=== PATIENT | female | born 1955 | race Caucasian/White ===

== ENCOUNTER 2023-04-26 10:05 | Outpatient (AMB) | payer OTHER, SELFPAY ==
--- NOTE | 2023-04-26 10:10 | MHC.PC.OV ---
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 Patient reports she is grieving the loss of 2 close childhood friends within 3 weeks. Patient has a pimple like spot on the outter left breast. Appellate Court Judge Required: No Accompanied by: Self / Same As Patient Allergies amoxicillin Allergy (Unknown, Verified 04/26/23 10:30) Hives azithromycin [Zithromax] Allergy (Unknown, Verified 04/26/23 10:30) Hives ciprofloxacin [Cipro] Allergy (Unknown, Verified 04/26/23 10:30) Hives codeine Allergy (Unknown, Verified 04/26/23 10:30) Hives Sulfa (Sulfonamide Antibiotics) Allergy (Unknown, Verified 04/26/23 10:30) Hives epinephrine Adverse Reaction (Severe, Verified 04/26/23 10:30) Anaphylaxis Clindamycin HCl Allergy (Unknown, Uncoded 04/26/23 10:30) Hives Erythromycin Allergy (Unknown, Uncoded 04/26/23 10:30) Hives Tobacco use date assessed: 04/26/23 Fall risk assessment: No Falls in past year Last assessed Fall Risk: 04/26/23 Dental Screening Dental Screen Date: 04/26/23 Did you have a dental visit in the last 12 months?: Yes Did you have a dental problem in the last 6 months where you did not have access to dental care?: No Was dental information given to patient?: 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 Kline Last office visit/CPE: . Seen Q6 Acute issue(s): L breast lump - appears as infected cyst - not allergic to cefdinir Acute adjustment disorder superimposed on anxiety/depression with passing of 2 childhood friends in past 2 weeks. On citalopram 40mg PMHx: COPD, LIBERTY, Depression/Anxiety, p-afib ([facility]) rhythm and rate controlled SurgHx: Tonsils, C-sect x2 FHx: Mom: Lupus, Sjogrens. Dad: Diabetes, Bladder tumor. Sister: Lupus SocHx: Nonsmoker, quit 2010. EtOH None. No drugs. [facility]LY [facility] Medical History Paroxysmal atrial flutter LIBERTY on CPAP Obesity Insomnia Hyperglycemia GERD (gastroesophageal reflux disease) Diverticular disease Chronic rhinitis COPD (chronic obstructive pulmonary disease) Depression Atrial fibrillation Anxiety Surgical History History of gynecologic surgery History of hysteroscopy H/O section History of tonsillectomy History of endoscopic gastrointestinal surgery Social History (Updated 04/26/23 @ 10:33 by Sandra Lorenzo CMA) Household Members: Children Housing: House Alcohol intake: never Patient Tobacco Use Status: Former Tobacco user Cigarette Packs Per Day: 1.5 Cigarettes Per Day: 20 Years Smoked: 40 e-Cigarette/Vaping Use: Never Used service: No Current occupational status: retired Current occupational exposures/hazards: No Sexual orientation: Unable to collect Gender identity: Unable to collect Cognitive needs: No Hearing needs: No Vision needs: Yes (wears glasses) Questionnaire PHQ-9 Over the last 2 weeks, how often have you been bothered by any of the following problems? 1. Little interest or pleasure in doing things: not at all 2. Feeling down, depressed, or hopeless: several days 3. Trouble falling or staying asleep, or sleeping too much: nearly every day 4. Feeling tired or having little energy: several days 5. Poor appetite or overeating: several days 6. Feeling bad about yourself - or that you are a failure or have let yourself or your family down: not at all 7. Trouble concentrating on things, such as reading the newspaper or watching television: not at all 8. Moving or speaking so slowly that other people could have noticed. Or the opposite - being so fidgety or restless that you have been moving around a lot more than usual: not at all 9. Thoughts that you would be better off or of hurting yourself in some way: not at all Total score: 6 Depression Screening Interpretation: Positive Depression Screening Follow-up: Other (Acute Adjustment disorder. can follow up.) Depression Screening Done: Yes 70985 - PHQ-9 Billing: Yes Source: Developed by Drs. Mejia Bess, Patrick George and colleagues, with an educational tete from [employer]. Thrive Questionnaire Date Thrive assessed: 04/26/23 I am a: Patient What is your living situation today?: I have a steady place to live Within the past 12 months, did the food you bought not last and you didn't have the money to get more?: Never true Within the past 12 months, did you worry whether your food would run out before you got money to buy more?: Never true Do you have trouble paying for medicines?: No Do you have trouble getting transportation to medical appointments?: No Do you have trouble paying your heating and electricity bill?: No Do you have trouble taking care of your child, family member or friend?: No Do you have trouble with day-to-day activities such as bathing, preparing meals, shopping, managing finances, etc.?: No Are you currently unemployed and looking for a job?: No Are you interested in more education?: No Please select the resources that you would like help with: None Currently or been in a relationship where the following occur: no concerns reported AUDIT C Alcohol Use Questionnaire (AUDIT-C) 1. How often do you have a drink containing alcohol?: Never 3. How often do you have six or more drinks on one occasion?: Never Total Score: 0 RIC-7 AMB Questionnaire RIC-7 Date RIC - 7 assessed: 04/26/23 Feeling nervous, anxious, or on edge: 1 = Several days Not being able to stop or control worryin = Nearly every day Worrying too much about different things: 1 = Several days Trouble relaxin = Not at all Being so restless that it is hard to sit still: 0 = Not at all Becoming easily annoyed or irritable: 2 = More than half the days Feeling afraid as if something awful might happen: 1 = Several days Total RIC-7 score (0-4 normal; 5-9 mild; 10-14 moderate; 15-21 severe): 8 Source: Developed by Drs. Mejia Bess, Patrick George and colleagues, with an educational tete from [employer]. RIC-7 Assessment Billing RIC-7 Assessment Tool: RIC-7 Assessment 88089 (Acute Adjustment disorder. can follow up.) Review of Systems Const Denies chills, Denies fatigue, Denies fever(s), Denies headache(s) and Denies weakness ENT Denies dizziness and Denies headache(s) Card Denies chest pain, Denies lightheadedness, Denies dyspnea and Denies other (Palpitations) Resp Denies cough, Denies dyspnea, Denies wheezing and Denies other ( shortness of breath) Musc Denies numbness and Denies tingling Neuro Denies dizziness, Denies headache(s), Denies numbness, Denies tingling, Denies paresthesias and Denies weakness Psych Reports anxiety and Reports depression Endo Denies fatigue Aller/Immun Denies wheezing Physical exam (Primary Care) Vital Signs: Last Vital Signs Pulse 61 04/26/23 10:14 Resp 13 04/26/23 10:14 BP 128/66 04/26/23 10:14 Pulse Ox 96 04/26/23 10:14 Oxygen Delivery Method Room Air 04/26/23 10:14 BMI result Body Mass Index 42.4 Tobacco/Smoking Status: Tobacco use Status Tobacco use date assessed 04/26/23 04/26/23 10:19 Patient Tobacco Use Status Former Tobacco user 04/26/23 10:33 e-Cigarette/Vaping Use Never Used 04/26/23 10:33 PHQ-9: PHQ-9 Score PHQ-9: Total score 6 04/26/23 10:36 Depression Screening Interpretation: Positive Depression Screening Follow-up: Other (Acute Adjustment disorder. can follow up.) Thrive Assessment: Date of Thrive Assessment Date Thrive assessed 04/26/23 04/26/23 10:36 Currently or been in a relationship where the following occur: no concerns reported Const General: no acute distress and well developed Nutritional Appearance: well nourished and obese morbidly obese Orientation/consciousness: patient oriented x3 HENMT Head: Yes normocephalic and Yes atraumatic Eyes General: appearance normal, both eyes and all related structures Pupils: Equal, round and reactive pupils present EOM: EOMs intact bilaterally Chest Other: 1?cm?superficial?lump?at?left?breast?at?03:00?o'clock?position?approximately?6?cm?from?nipple?areola?complex.??There?is?approximately?a?3?cm?region?of?surrounding?erythema. Resp Effort & Inspection: normal respiratory effort Auscultation: clear to auscultation bilaterally Cardio Rate: regular rate Rhythm: regular rhythm Heart sounds: S1 normal heart sound present, S2 normal heart sound present, no gallops, no murmurs and no rubs Neuro General: patient oriented x3 and gait normal Cranial nerves: Yes Equal, round and reactive pupils present Psych Affect: normal affect Assessment and Plan Assessment & Plan (1) Depression with anxiety: Code(s): F41.8 - Other specified anxiety disorders Plan: Acute?adjustment?disorder?superimposed?over?depression?and?anxiety. Patient?declines?referral?to?therapy?and?declines?medication?adjustments. She?is?fairly?stable I?let?her?know?that?she?can?contact?me?with?any?concerns?regarding?her?medication?or?new?referral?to?a?therapist. (2) Acute adjustment disorder: Code(s): F43.20 - Adjustment disorder, unspecified Plan: As?above (3) Lump of left breast: Code(s): N63.20 - Unspecified lump in the left breast, unspecified quadrant Plan: Recent?mammogram?in?August?was?negative?for?malignancies. This?appears?as?an?infected?superficial?skin?or?subcutaneous?cyst She?has?many?antibiotic?allergies.??Will?use?cefdinir She?will?let?me?know?if?not?improving. We?can?follow-up?to?see?if?this?is?completely?resolved?or?if?there?is?any?residual?cyst?or?lump. (4) COPD (chronic obstructive pulmonary disease): Code(s): J44.9 - Chronic obstructive pulmonary disease, unspecified Plan: Stable?today. Follow-up?with?pulmonology?at?[place]?as?recommended Has?upcoming?low-dose?CT?scan.??Patient?was?a?long-term?smoker?though?she?has?stopped?smoking. (5) LIBERTY on CPAP: Code(s): G47.33 - Obstructive sleep apnea (adult) (pediatric) Plan: Continue?CPAP?and?follow-up?with?pulmonology?as?recommended (6) Paroxysmal atrial fibrillation: Code(s): I48.0 - Paroxysmal atrial fibrillation Plan: Regular?rate?and?rhythm?today. No?recent?episodes?of?AFib?and?patient?is?both?rate?and?rhythm?controlled?though?she?says?her?Cardiology?group?is?planning?to?remove?flecainide?and?move?to?just?rate?control.??She?is?not?anticoagulated. Follow-up?with?Cardiology?as?recommended (7) Laboratory exam ordered as part of routine general medical examination: Code(s): Z00.00 - Encounter for general adult medical examination without abnormal findings Plan: Check?labs Orders: Orders Comprehensive [place]. Panel Fast Today Z00.00 - Encounter for general adult medical examination without abnormal findings Complete Blood Count Auto Diff Today Z00.00 - Encounter for general adult medical examination without abnormal findings Lipid Panel Today Z00.00 - Encounter for general adult medical examination without abnormal findings Microalbumin, Random (w Creat) Today I10 - Essential (primary) hypertension TSH reflex Free T4 Today Z00.00 - Encounter for general adult medical examination without abnormal findings UA and rflx microscopic Today Z00.00 - Encounter for general adult medical examination without abnormal findings Medications: New cefdinir 300 mg PO Q12H 20 caps 0RF 10 days Changed From citalopram 40 mg PO QAM To citalopram 40 mg PO QAM 90 days 90 tabs 3RF From famotidine 20 mg PO DAILY To famotidine 20 mg PO DAILY 90 days 90 tabs 3RF Coding Level of Care Code Est Pt Level 4 (31003) Diagnoses Depression with anxiety F41.8 Acute adjustment disorder F43.20 Lump of left breast N63.20 COPD (chronic obstructive pulmonary disease) J44.9 LIBERTY on CPAP G47.33 Paroxysmal atrial fibrillation I48.0 Laboratory exam ordered as part of routine general medical examination Z00.00 Additional Codes RIC-7 Assessment Billing - RIC-7 Assessment Tool: RIC-7 Assessment 49945 ([id number])
[2023-04-26 10:14] VITALS: BP 128/66; PULSE 61; RESP 13; O2SAT 96; BMI 42.4
== END 2023-04-26 11:19 | disposition home or self-care (01) ==
PROVIDERS: PCP Family Medicine; Visit Provider Family Medicine
DX: J44.9 Chronic obstructive pulmonary disease, unspecified (principal); I48.0 Paroxysmal atrial fibrillation; F41.8 Other specified anxiety disorders; F43.20 Adjustment disorder, unspecified; N63.24 Unspecified lump in the left breast, lower inner quadrant; G47.33 Obstructive sleep apnea (adult) (pediatric)
CPT/HCPCS: 96127; 99214

== ENCOUNTER 2023-06-24 07:07 | Outpatient (REF) | payer OTHER, SELFPAY ==
[2023-06-24 11:04] LABS: MANUAL DIFF FLAG NO
[2023-06-24 11:11] LABS: Appearance Urine Clear; Color Urine Yellow; Glucose Urine UA Negative (Negative); Leukocyte Esterase Urine Moderate (2+) (Negative); Nitrite Urine Negative (Negative); Specific Gravity - Urine 1.015 (1.005-1.025); UMIC TRIGGER UA YES; Urine Blood Negative (Negative); Urine Ketones Negative (Negative); Urine Protein Negative (Neg-Trace)
[2023-06-24 11:13] LABS: Bacteria Urine None Seen (None Seen); Hyaline Casts Urine 0-2 /LPF (0-2); RBC Urine 0-2 /HPF (0-2)
[2023-06-24 11:23] LABS: Basophils Absolute Auto 0.1 X10*3/uL (0.0-0.2); Basophils Percent Auto 0.8 % (0-2); Eosinophils Absolute Auto 0.3 X10*3/uL (0.0-0.4); Eosinophils Percent Auto 4.2 % (0-4); Hematocrit 45.4 % (37.0-47.0); Imm Gran Abs Auto 0.02 X10*3/uL (0.00-0.03); Imm Gran Pct Auto 0.3 % (0.0-0.4); Lymphocytes Absolute Auto 1.2 X10*3/uL (1.2-4.9); Mean Corpuscular Hemoglobin 29.5 pg (27.0-33.0); Mean Corpuscular Volume 89.2 fL (80.0-98.0); Mean Platelet Volume 11.5 fL (9.4-12.3); Monocytes Absolute Auto 0.5 X10*3/uL (0.1-1.2); Neutrophils Absolute Auto 4.4 x10*3/uL (2.0-8.3); Neutrophils Percent Auto 68.7 % (45-73); Platelet Count 251 X10*3/uL (160-400); Red Blood Count 5.09 X10*6/uL (4.20-5.50); White Blood Count 6.4 X10*3/uL (4.8-10.8)
[2023-06-24 12:14] LABS: Alanine Aminotransferase 16 U/L (0-31); Albumin Level 4.2 g/dL (3.5-5.0); Alkaline Phosphatase 63 U/L (39-117); Anion Gap 12 (12-20); Aspartate Amino Transferase 19 U/L (5-31); Bilirubin Total 0.5 mg/dL (0.0-1.0); Blood Urea Nitrogen 14 mg/dL (9-16); Calcium 9.3 mg/dL (8.4-10.2); Carbon Dioxide 25 mmol/L (22-29); Chloride 104 mmol/L (96-108); Cholesterol 178 mg/dL (<200); Estimated Glomerular Filt Rate > 60; Glucose Fasting 108 mg/dL (60-99); HDL Cholesterol 34 mg/dL (>40); LDL Cholesterol Calculated 114 mg/dL (<100); Potassium 4.4 mmol/L (3.3-5.1); Sodium 137 mmol/L (135-145); Total Protein 8.3 g/dL (6.5-8.0); Triglycerides 151 mg/dL (<150)
[2023-06-24 12:20] LABS: Creatinine Urine 105.73 mg/dL; Microalbumin Urine < 5.0 mg/L
== END 2023-06-24 07:08 | disposition home or self-care (01) ==
LOC: HO.WFDLDS 07:07
PROVIDERS: Visit Provider Family Medicine
DX: Z00.00 Encounter for general adult medical examination without abnormal findings (principal); I10 Essential (primary) hypertension
CPT/HCPCS: 36415; 80053; 80061; 81001; 82043; 82570; 84443; 85025

== ENCOUNTER 2023-07-05 10:47 | Outpatient (AMB) | payer OTHER, SELFPAY ==
[2023-07-05 11:25] VITALS: BP 113/65; PULSE 69; O2SAT 97; BMI 28.2
--- NOTE | 2023-07-05 11:25 | A.OFFPC_ITS ---
Vital Signs 07/05/23 11:25 Height 5 ft 6 in Weight 175 lb BMI 28.2 BP 113/65 Blood Pressure Location Lt brachial Pulse 69 Pulse Source Pulse Oximeter Pulse Oximetry (%) 97 Oxygen Delivery Method Room Air Intake Visit Reasons: Extended exam with f/u labs and health maint. Intake Note: Patient is here for extended exam and follow up with follow up on labs today. Allergies amoxicillin Allergy (Unknown, Verified 07/05/23 11:27) Hives azithromycin [Zithromax] Allergy (Unknown, Verified 07/05/23 11:27) Hives ciprofloxacin [Cipro] Allergy (Unknown, Verified 07/05/23 11:27) Hives codeine Allergy (Unknown, Verified 07/05/23 11:27) Hives Sulfa (Sulfonamide Antibiotics) Allergy (Unknown, Verified 07/05/23 11:27) Hives epinephrine Adverse Reaction (Severe, Verified 07/05/23 11:27) Anaphylaxis Clindamycin HCl Allergy (Unknown, Uncoded 07/05/23 11:27) Hives Erythromycin Allergy (Unknown, Uncoded 07/05/23 11:27) Hives Tobacco use date assessed: 04/26/23 HPI Extended exam with f/u labs and health maint. HPI Details 68 y/o female presents for an extended e xam with f/u labs and health maintenance. Labs were drawn 06/24/23. Reviewed labs with pt. Elevated fasting glucose of 108. Triglycerides 151. TC 178. LDL 114. HDL low at 34. A1c today 07/05/23 is 5.7%. Pt reports ongoing knee pain. She notes she is waiting for [facility] to call her back. Pt reports a tooth abscess and questions whether or not she should proceed with a root canal. Pt reports R foot pain. Pt reports last cologuard test was around last summer per pt. Pt reports she has a mammogram coming up. [facility] Medical History (Updated 07/05/23 @ 12:13 by Jim Goel) Paroxysmal atrial flutter LIBERTY on CPAP Obesity Insomnia Hyperglycemia GERD (gastroesophageal reflux disease) Diverticular disease Chronic rhinitis COPD (chronic obstructive pulmonary disease) Depression Anxiety Surgical History (Reviewed 04/26/23 @ 10:19 by Sandra Lorenzo [facility]) History of gynecologic surgery History of hysteroscopy H/O section History of tonsillectomy History of endoscopic gastrointestinal surgery Social History (Updated 04/26/23 @ 10:33 by Sandra Lorenzo 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 1. Little interest or pleasure in doing things: not at all 2. Feeling down, depressed, or hopeless: not at all 3. Trouble falling or staying asleep, or sleeping too much: not at all 4. Feeling tired or having little energy: not at all 5. Poor appetite or overeating: not at all 6. Feeling bad about yourself - or that you are a failure or have let yourself or your family down: not at all 7. Trouble concentrating on things, such as reading the newspaper or watching television: not at all 8. Moving or speaking so slowly that other people could have noticed. Or the opposite - being so fidgety or restless that you have been moving around a lot more than usual: not at all 9. Thoughts that you would be better off or of hurting yourself in some way: not at all Total score: 0 Depression Screening Interpretation: Negative Depression Screening Done: Yes Source: Developed by Drs. Mejia Bess, Jen Erickson, Patrick Morejon and colleagues, with an educational tete from [employer]. Thrive Questionnaire Date Thrive assessed: 07/05/23 I am a: Patient What is your living situation today?: I have a steady place to live Within the past 12 months, did the food you bought not last and you didn't have the money to get more?: Never true Within the past 12 months, did you worry whether your food would run out before you got money to buy more?: Never true Do you have trouble paying for medicines?: No Do you have trouble getting transportation to medical appointments?: No Do you have trouble paying your heating and electricity bill?: No Do you have trouble taking care of your child, family member or friend?: No Do you have trouble with day-to-day activities such as bathing, preparing meals, shopping, managing finances, etc.?: No Are you currently unemployed and looking for a job?: No Are you interested in more education?: No THRIVE Score: 0 AUDIT C Alcohol Use Questionnaire (AUDIT-C) 1. How often do you have a drink containing alcohol?: Never 3. How often do you have six or more drinks on one occasion?: Never Total Score: 0 RIC-7 AMB Questionnaire RIC-7 Date RIC - 7 assessed: 07/05/23 Feeling nervous, anxious, or on edge: 0 = Not at all Not being able to stop or control worryin = Not at all Worrying too much about different things: 0 = Not at all Trouble relaxin = Not at all Being so restless that it is hard to sit still: 0 = Not at all Becoming easily annoyed or irritable: 0 = Not at all Feeling afraid as if something awful might happen: 0 = Not at all Total RIC-7 score (0-4 normal; 5-9 mild; 10-14 moderate; 15-21 severe): 0 Source: Developed by Drs. Mejia Bess, Jen Erickson, Patrick Morejon and colleagues, with an educational tete from [employer]. Review of Systems Const Denies chills, Denies fatigue, Denies fever(s), Denies headache(s) and Denies weakness Eyes Denies change in vision ENT Denies dizziness, Denies headache(s), Denies hearing loss, Denies nasal congestion, Denies sinus pain, Denies sinus pressure and Denies sore throat Card Denies chest pain, Denies lightheadedness, Denies dyspnea and Denies other (palpitations) Resp Denies cough, Denies dyspnea and Denies wheezing GI Denies abdominal pain, Denies melena, Denies hematochezia, Denies change in bowel habits, Denies dyspepsia and Denies nausea Denies hematuria and Denies dysuria Musc Details: R foot pain Denies abnormal gait, Denies myalgias, Denies arthralgias, Denies numbness and Denies tingling Skin/Breast Denies rash, Denies unusual bruising and Denies wounds Neuro Denies abnormal gait, Denies dizziness, Denies headache(s), Denies memory loss, Denies numbness, Denies Sensory deficit (Neuro), Denies tingling and Denies weakness Psych Denies anxiety, Denies depression and Denies memory loss Endo Denies cold intolerance, Denies fatigue, Denies heat intolerance, Denies polydipsia and Denies polyuria Nacho/Lymph Denies easy bleeding and Denies easy bruising Aller/Immun Denies wheezing Physical exam (Primary Care) Vital Signs: Last Vital Signs Pulse 69 07/05/23 11:25 BP 113/65 07/05/23 11:25 Pulse Ox 97 07/05/23 11:25 Oxygen Delivery Method Room Air 07/05/23 11:25 BMI result Body Mass Index 28.2 Tobacco/Smoking Status: Tobacco use Status Tobacco use date assessed 04/26/23 07/05/23 11:27 Patient Tobacco Use Status Former Tobacco user 07/05/23 11:27 e-Cigarette/Vaping Use Never Used 07/05/23 11:27 Depression Screening Interpretation: Negative Thrive Assessment: Date of Thrive Assessment Date Thrive assessed 04/26/23 07/05/23 11:27 Const General: no acute distress, well developed, alert and awake Nutritional Appearance: well nourished Orientation/consciousness: patient oriented x3 HENMT Head: Yes normocephalic and Yes atraumatic Ears: hearing grossly normal bilaterally and TM's normal bilaterally General nose exam: Normal external nose present and Normal nares present Mouth: Normal oral and palatal mucosa present and moist mucous membranes Teeth and gingiva: dentition normal Throat: Yes posterior oropharynx normal Eyes General: appearance normal, both eyes and all related structures Pupils: Equal, round and reactive pupils present and Pupil accommodation reflex normal EOM: EOMs intact bilaterally Neck Neck: Yes normal visual inspection, Yes no lymphadenopathy and Yes trachea mi dline Thyroid: Thyroid normal Carotids: no bruits Lymphatic: no lymphadenopathy noted Chest Chest palpation & inspection: normal inspection of the chest Resp Effort & Inspection: normal respiratory effort Auscultation: clear to auscultation bilaterally Cardio Rate: regular rate Rhythm: regular rhythm Heart sounds: S1 normal heart sound present, S2 normal heart sound present, no gallops, no murmurs and no rubs Bruits: no abdominal aortic bruits and no carotid bruits GI Palpation (GI): No Abdominal aortic bruit present, Soft to palpation, nontender, No hepatosplenomegaly present and No Rebound tenderness present Auscultation: normal bowel sounds General: Yes no CVA tenderness Back/Spine/Pelvis Back: no CVA tenderness Cervical Spine: cervical ROM normal and No Cervical spine tenderness Thoracic/Lumbar Spine: thoraco-lumbar ROM normal, No pain with thoraco-lumbar ROM, No thoracic spinal tenderness and No lumbar spinal tenderness Skin Lesions: no lesions Rashes: no rashes Trauma: no lacerations or abrasions Wounds: no wounds Nails: normal Neuro General: patient oriented x3 Cranial nerves: Yes Equal, round and reactive pupils present Cognition (Neuro): normal cognition Gait exam (Neuro): Normal gait present Motor exam (neuro): 5/5 motor strength present throughout Sensory Exam: No Sensory deficit (Neuro) Deep tendon reflexes (DTR's): Right patellar reflex intensity grade: 2+ and Left patellar reflex intensity grade: 2+ Extrem General: Yes normal to inspection and No edema Psych Appearance: grossly normal Affect: normal affect Attitude: cooperative Thought process: Normal thought process present Results AMB Hemoglobin A1c AMB Hemoglobin A1c 5.7 % Last Edit by Kathy Buchanan CMA on 07/05/23 11:49 Assessment and Plan Assessment & Plan (1) Adult general medical examination: Code(s): Z00.00 - Encounter for general adult medical examination without abnormal findings Plan: 68-year-old?female?presents?for?complete?physical?exam Encouraged?healthy?diet?with?active?lifestyle?and?plenty?of?exercise (2) Screening for colon cancer: Code(s): Z12.11 - Encounter for screening for malignant neoplasm of colon Plan: Patient?notes?she?had?a?Cologuard?test?a?year?ago.??Negative,?per?patient Should?repeat?in?2?year (3) Low HDL (under 40): Code(s): E78.6 - Lipoprotein deficiency Plan: Encouraged?exercise (4) Breast cancer screening by mammogram: Code(s): Z12.31 - Encounter for screening mammogram for malignant neoplasm of breast Plan: Mammograms?managed?by?her?inspector final assembly conveyor line Up-to-date Follow-up?with?inspector final assembly conveyor line?as?recommended (5) Pre-diabetes: Code(s): R73.03 - Prediabetes Plan: A1c?5.7%.??Early?pre?diabetes.??She?has?a?family?history?of?diabetes Encouraged?diet?low?in?sugars?and?starches Encouraged?weight?loss?and?exercise (6) Tooth abscess: Code(s): K04.7 - Periapical abscess without sinus Plan: Left?upper?molar?tooth?abscess She?has?many?allergies?to?antibiotics. Will?give?her?a?script?for?cefdinir. She?will?try?mouth?antiseptics?and?warm?saltwater?gargles?1st. If?not?improving?she?can?take?cefdinir Advised?she?needs?to?follow- up?with?her?dentist?and?she?says?she?has?an?appointment. (7) Right foot pain: Code(s): M79.671 - Pain in right foot Plan: Advised?arch?support?inserts. Referred?to?Podiatry (8) Neoplasm of uncertain behavior of skin: Code(s): D48.5 - Neoplasm of uncertain behavior of skin Plan: Pedunculated?reddish-brown?lesion?at?right?hip/waist. Referred?to?Dermatology?for?assessment?and?evaluation. This?is?getting?caught?on?clothing?and?gets?irritated?as?well.??As?above?referre d?to?Dermatology?and?can?be?removed?due?to?pain?and?irritation. (9) Knee pain: Code(s): M25.569 - Pain in unspecified knee Plan: Bilateral?knee?osteoarthritis Currently?stable?and?she?can?let?me?know?if?this?is?worsening. (10) History of smoking: Code(s): Z87.891 - Personal history of nicotine dependence Plan: Followed?by?pulmonary?medicine?for?COPD?and?had?recent?low-dose?CT?scan?which?sh e?says?was?negative. She?will?get?these?annually (11) Paroxysmal atrial fibrillation: Code(s): I48.0 - Paroxysmal atrial fibrillation Plan: Her?right?fluctuates?with?respiratory?rate?but?otherwise?regular?rhythm?today She?takes?metoprolol?and?is?followed?by?cardiology.??No?recent?AFib Follow-up?with?Cardiology?as?recommended (12) COPD (chronic obstructive pulmonary disease): Code(s): J44.9 - Chronic obstructive pulmonary disease, unspecified Plan: Followed?by?pulmonology. Lungs?are?clear Breathing?well. Inhaled?medications?as?prescribed Continue?to?follow?with?pulmonology?as?recommended Orders: Orders AMB Hemoglobin A1c Today Z13.9 - Encounter for screening, unspecified Referrals Dermatology Referral D48.5 - Neoplasm of uncertain behavior of skin Podiatry Referral M79.671 - Pain in right foot Medications: Refilled cefdinir 300 mg PO Q12H 10 days 20 caps 0RF Coding Level of Care Code Est Pt Level 4 (39405) Diagnoses Adult general medical examination Z00.00 Screening for colon cancer Z12.11 Low HDL (under 40) E78.6 Breast cancer screening by mammogram Z12.31 Pre-diabetes R73.03 Tooth abscess K04.7 Right foot pain M79.671 Neoplasm of uncertain behavior of skin D48.5 Knee pain M25.569 History of smoking Z87.891 Paroxysmal atrial fibrillation I48.0 COPD (chronic obstructive pulmonary disease) J44.9
== END 2023-07-05 12:13 | disposition home or self-care (01) ==
PROVIDERS: PCP Family Medicine; Visit Provider Family Medicine
DX: R73.03 Prediabetes (principal)
CPT/HCPCS: 83036; 99213; 99397

== ENCOUNTER 2023-07-09 10:29 | Outpatient (AMB) | payer OTHER, SELFPAY ==
--- OUTSIDE RECORDS SUMMARY | 2023-07-09 10:30 | XMS_ITS | Continuity of Care Document ---
Author Name Unknown Organization [facility] Pulmonary M edicine Address [address] [place] [id number]- Care Team Providers Care Senior Pl Sql Developer Name Role Phone Kindra TAI, Brian Jacome Primary Care Physician [phone] Encounter [facility] Date(s): 04/27/23 - 05/27/23 [facility] Medicine [address] [place] [id number] Allergies, Adverse Reactions, Alerts Substance Reaction Severity Status Sulfur Active codeine Active clindamycin Active doxycycline Dizziness Active erythromycin Active amoxicillin Active azithromycin Active epinephrine-pilocarpine ophthalmic Active Cipro Active Immunizations Given and Recorded Vaccine Date Status Refusal Reason RSV vaccine, preF A-preF B, recombinant 02/02/23 R ecorded influenza virus vaccine, inactivated 02/02/23 Marlon rded influenza virus vaccine, inactivated 02/04/22 Marlon rded influenza virus vaccine, inactivated 02/07/21 Marlon rded influenza virus vaccine, inactivated 01/16/20 Marlon rded influenza virus vaccine, inactivated 02/04/19 Marlon rded influenza virus vaccine, inactivated 01/27/18 Marlon rded influenza virus vaccine, inactivated 01/22/17 Marlon rded influenza virus vaccine, inactivated 02/27/15 Marlon rded pneumococcal 20-valent conjugate vaccine 09/23/22 Recorded SARS-CoV-2 mRNA-1273 (6m-5y) vaccine 02/11/22 Marlon rded SARS-CoV-2 (COVID-19) mRNA-1273 vaccine 09/10/21 R ecorded SARS-CoV-2 (COVID-19) mRNA-1273 vaccine 03/25/21 R ecorded SARS-CoV-2 (COVID-19) mRNA-1273 vaccine 08/13/20 G iven SARS-CoV-2 (COVID-19) mRNA-1273 vaccine 07/16/20 G iven tetanus/diphtheria/pertussis, acel(Tdap) 01/22/17 Recorded Influenza Virus Vaccine (oldterm) 02/07/16 Recorde d pneumococcal 13-valent vaccine 08/17/14 Recorded zoster vaccine, inactivated 02/26/14 Recorded pneumococcal 23-valent vaccine 06/30/11 Recorded Measles/Mumps/Rubella Virus Vaccine 02/10/10 Recor ded influ virus vac, H1N1, inactive(oldterm) 05/28/09 Recorded diphtheria/tetanus/pertussis, acel(DTaP) 07/10/08 Recorded Medications citalopram 40 mg oral tablet 1 tablet, By Mouth, Daily in AM, # 30 tablet, 2 Refills, Maintenance, 03/25/23 9:19:00 EDT, [facility] #[id number], 167, cm, 03/18/23 9:01:00 EDT, Height Start Date: 03/25/23 Status: Ordered flecainide 100 mg oral tablet 1 tablet = 100 mg, By Mouth, Every 12 hours, # 60 tablet, 0 Refills, Maintenance, 12/27/14 12:48:23, Tablet Start Date: 12/27/14 Status: Ordered Incruse Ellipta 62.5 mcg/inh inhalation powder 1 each, Inhalation, Every 24 hours, doses should be taken at least 24 hours apart, # 30 each, 11 Refills, Maintenance, 05/13/22 17:51:00 EST, Powder, [facility] #[id number], Partial fill upon patient request if the prescription is for a schedule I... Start Date: 05/13/22 Stop Date: 05/08/23 Status: Ordered levalbuterol 45 mcg/inh inhalation aerosol 2 puffs, Inhalation, Every 4 hours, PRN for wheezing, # 15 Gm, 11 Refills, Maintenance, 04/21/23 11:27:00 EST, Aerosol, [facility] #[id number], Partial fill upon patient request if the prescription is for a schedule II opioid drug., 167, cm, 04/21... Start Date: 04/21/23 Status: Ordered meloxicam 15 mg oral tablet TAKE 1 TABLET BY MOUTH DAILY NEEDED FOR PAIN Start Date: 11/09/22 Status: Ordered metoprolol 25 mg oral tablet, extended release ORAL, TABLET, EXTENDED RELEASE, 0 Refill(s),, Refills 0, 08/28/18 12:08:00 EDT Start Date: 08/28/18 Status: Ordered Stiolto Respimat 60 ACT 2.5 mcg-2.5 mcg/inh inhalation aerosol 2 puffs, Inhalation, Every 24 hours, # 4 Gm, 11 Refills, Maintenance, 05/10/23 12:29:00 EST, Aerosol, [facility] #[id number], Partial fill upon patient request if the prescription is for a schedule II opioid drug., 167, cm, 04/21/23 10:22:00 EST,... Start Date: 05/10/23 Stop Date: 05/04/24 Status: Ordered Zyrtec 10 mg oral tablet 1 tablet = 10 mg, By Mouth, Daily, # 30 tablet, 0 Refills, Maintenance, 12/27/14 12:50:02, Tablet Start Date: 12/27/14 Status: Ordered Problem List Condition Confirmation Course Effective Dates Status H ealth Status Informant Ankle pain Confirmed Active Anxiety Confirmed Active Atrial fibrillation Confirmed Active COPD (chronic obstructive pulmonary disease) Confirmed Active Chronic rhinitis Confirmed Active Depressive disorder Confirmed Active Diverticular disease of colon Confirmed Active Enthesopathy of elbow region Confirmed Active GERD (gastroesophageal reflux disease) Confirmed Active Hyperglycemia Confirmed Active Insomnia Confirmed Active Knee pain Confirmed Active Low back pain Confirmed Active Anxiety and depression Confirmed Active Obesity Confirmed Active LIBERTY on CPAP Confirmed Active Paroxysmal atrial fibrillation Confirmed Active Encounter for screening colonoscopy Confirmed Active Severe obesity Confirmed Active Social History Social History Type Response Smoking Status Former smoker, quit more than 30 days ago; Other: quit 2010. smoked about 40 years. 1 1/2 ppd.; entered on: 03/10/23 Sex Patient Care team information Care Team Personnel Name: Brian Arguelles MD Position: [facility] Outreach Member Role: PCP Address: Address: [address] [place] [id number]- Care Team Related Persons Name: LENARD LITTLEJOHN Address: [address] [place] [address] Name: BHARGAVI DAVIS Address: home [address] [place] [address]
--- OUTSIDE RECORDS SUMMARY | 2023-07-09 10:30 | XMS_ITS | Continuity of Care Document ---
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 Operator Name Role Phone Kindra TAI, Brian Jacome Primary Care Physician [phone] Encounter [facility] Date(s): 06/02/23 - 07/02/23 [facility] [address] [place] [id number] Allergies, Adverse Reactions, Alerts Substance Reaction Severity Status codeine Active doxycycline Dizziness Active clindamycin Active erythromycin Active amoxicillin Active azithromycin Active epinephrine-pilocarpine ophthalmic Active Cipro Active Sulfur Active Immunizations Given and Recorded Vaccine Date [...] tablet, 2 Refills, Maintenance, 03/25/23 9:19:00 EDT, [facility] #[id number], 167, cm, 03/18/23 9:01:00 EDT, Height Start [...] 11 Refills, Maintenance, 05/13/22 17:51:00 EST, Powder, [facility] #[id number], Partial fill upon patient request if the prescription is for a schedule I... Start Date: 05/13/22 Stop Date: 05/08/23 Status: Ordered levalbuterol 45 mcg/inh inhalation aerosol 2 puffs, Inhalation, Every 4 hours, PRN for wheezing, # 15 Gm, 11 Refills, Maintenance, 04/21/23 11:27:00 EST, Aerosol, [facility] #[id number], Partial fill upon patient request if the [...] Inhalation, Every 24 hours, # 4 Gm, 5 Refills, Maintenance, 06/14/23 9:29:00 EST, [facility] #[id number], 167, cm, 04/21/23 10:22:00 EST, Height Start Date: 06/14/23 Status: Ordered Zyrtec 10 mg oral tablet [...] Team Personnel Name: Brian Arguelles MD Position: S Outreach Member Role: PCP Address: Address: [address] [place] [address]- Care Team Related Persons Name: LENARD LITTLEJOHN Address: [address] [place] [address] Name: BHARGAVI DAVIS Address: home [address] [place] [address]
--- OUTSIDE RECORDS SUMMARY | 2023-07-09 10:30 | XMS_ITS | Continuity of Care Document ---
Author Name Unknown Organization [facility] Address [address] [address]- Care Team Providers Care Vending Machine Collector Name Role Phone Eliud TAI, Kaley Corrales Primary Care Physician [facility] Date(s): 11/19/22 - 12/19/22 [facility] [address] [address] Allergies, Adverse Reactions, Alerts Substance Reaction Severity Status amoxicillin Active Sulfur Active codeine Active clindamycin Active erythromycin Active azithromycin Active epinephrine-pilocarpine ophthalmic Active Cipro Active Immunizations Given and Recorded Vaccine Date Status Refusal Reason pneumococcal 20-valent conjugate vaccine 09/23/22 Recorded SARS-CoV-2 mRNA-1273 (6m-5y) vaccine 02/11/22 Marlon rded influenza virus vaccine, inactivated 02/04/22 Marlon rded influenza virus vaccine, inactivated 02/07/21 Marlon rded influenza virus vaccine, inactivated 01/16/20 Marlon rded influenza virus vaccine, inactivated 02/04/19 Marlon rded influenza virus vaccine, inactivated 01/27/18 Marlon rded influenza virus vaccine, inactivated 01/22/17 Marlon rded influenza virus vaccine, inactivated 02/27/15 Marlon rded SARS-CoV-2 (COVID-19) mRNA-1273 vaccine 09/10/21 [...] Mouth, Daily in AM, # 30 tablet, 5 Refills, Maintenance, 09/26/22 7:11:00 EDT, [facility] #[id number], 167, cm, 09/08/22 10:38:00 EDT, Height Start Date: 09/26/22 Status: Ordered famotidine 20 mg oral tablet 1, tablet, By Mouth, Daily at bedtime, # 90 tablet, Refills 0, Maintenance, 11/03/22 19:17:00 EDT, Route to Pharmacy Electronically, [facility] #[id number], 167, cm, 09/08/22 10:38:00 EDT, Height Start Date: 11/03/22 Status: Ordered Flax Seed Oil oral capsule 0 Refills, Maintenance, 01/03/19 10:12:18 EDT Start Date: 01/03/19 Status: Ordered flecainide 100 mg oral tablet 1 tablet = 100 mg, By Mouth, Every 12 hours, # 60 tablet, 0 Refills, Maintenance, 12/27/14 12:48:23, Tablet Start Date: 12/27/14 Status: Ordered fluconazole 150 mg oral tablet 1 tablet = 150 mg, By Mouth, Once, epeat dose if still having symptoms in 72 hours, # 2 tablet, 0 Refills, Soft Stop, 11/19/22 15:04:00 EDT, Tablet, [facility] #[id number], Partial fill upon patient request if the prescription is for a schedule II... Start Date: 11/19/22 Status: Ordered Incruse Ellipta 62.5 mcg/inh inhalation powder 1 each, Inhalation, Every 24 hours, doses should be taken at least 24 hours apart, # 30 each, 11 Refills, Maintenance, 05/13/22 17:51:00 EST, Powder, [facility] #[id number], Partial fill upon patient request if the prescription is for a schedule I... Start Date: 05/13/22 Stop Date: 05/08/23 Status: Ordered levalbuterol 45 mcg/inh inhalation aerosol 2 puffs, Inhalation, Every 4 hours, PRN for wheezing, # 15 Gm, 11 Refills, Maintenance, 10/22/21 10:28:00 EDT, Aerosol, [facility] #[id number], Partial fill upon patient request if the prescription is for a schedule II opioid drug., 167, cm, 10/22... Start Date: 10/22/21 Status: Ordered meloxicam 15 mg oral tablet TAKE 1 TABLET BY MOUTH DAILY NEEDED FOR PAIN Start Date: 11/09/22 Status: Ordered metoprolol 25 mg oral tablet, extended release ORAL, TABLET, EXTENDED RELEASE, 0 Refill(s),, Refills 0, 08/28/18 12:08:00 EDT Start Date: 08/28/18 Status: Ordered PEG-3350 with Electrolytes (Eqv-NuLYTELY) oral powder for reconstitution See Instructions, Mix powder with water according to the product label On the evening befoer colonoscopy drink 8 oz of prep fluid every 15-20 minutes until it is finished, # 1 each, 0 Refills, Maintenance, 09/15/22 9:01:00 EDT, [facility] Start Date: 09/15/22 Status: Ordered Stiolto Respimat 60 ACT 2.5 mcg-2.5 mcg/inh inhalation aerosol 2 puffs, Inhalation, Every 24 hours, # 4 Gm, 11 Refills, Maintenance, 05/15/22 12:29:00 EST, Aerosol, [facility] #[id number], Partial fill upon patient request if the prescription is for a schedule II opioid drug., 167, cm, 04/01/22 9:52:00 EST, H... Start Date: 05/15/22 Stop Date: 05/10/23 Status: Ordered Zyrtec 10 mg oral tablet [...] Social History Type Response Smoking Status Former smoker entered on: 12/27/14 Sex Patient Care team information Care Team Personnel Name: Eliud TAI, Kaley Corrales Position: [facility] Physician - Primary Care Member Role: PCP Address: Address: [address] [place] [address] [place] [address]- Care Team Related Persons Name: LENARD LITTLEJOHN Address: home [address] [place] [address] Name: ELDA DAVIS Address: home [address] [place] [address]
--- OUTSIDE RECORDS SUMMARY | 2023-07-09 10:30 | XMS_ITS | Continuity of Care Document ---
Author Name Unknown Organization [facility] [place] Address [address] [place] [address]- Care Team Providers Care Proposal Engineer Name Role Phone Eliud TAI, Kaley Corrales Primary Care Physician Encounter [facility] Date(s): 09/15/22 - 10/15/22 [facility] [place] [address] [place], [place] [address] Attending Physician: Admtr, [place] Admitting Physician: Admtr, [place] Referring Physician: Admtr, Ar8 Allergies, Adverse Reactions, Alerts Substance Reaction Severity Status codeine Active clindamycin Active erythromycin Active amoxicillin Active [...] tablet, 5 Refills, Maintenance, 09/26/22 7:11:00 EDT, [facility] #[id number], 167, cm, 09/08/22 10:38:00 EDT, Height Start Date: 09/26/22 Status: Ordered famotidine 20 mg oral tablet 1, tablet, By Mouth, Daily at bedtime, # 90 tablet, Refills 0, Maintenance, 08/05/22 9:10:00 EDT, Route to Pharmacy Electronically, [facility] #[id number], 167, cm, 05/28/22 16:04:00 EST, Height Start Date: 08/05/22 Status: Ordered Flax Seed Oil oral capsule [...] 11 Refills, Maintenance, 05/13/22 17:51:00 EST, Powder, [facility] #[id number], Partial fill upon patient request if the prescription is for a schedule I... Start Date: 05/13/22 Stop Date: 05/08/23 Status: Ordered levalbuterol 45 mcg/inh inhalation aerosol 2 puffs, Inhalation, Every 4 hours, PRN for wheezing, # 15 Gm, 11 Refills, Maintenance, 10/22/21 10:28:00 EDT, [facility]erosol, [id number], Partial fill upon patient request if the prescription is for a schedule II opioid drug., 167, cm, 10/22... Start Date: 10/22/21 Status: Ordered metoprolol 25 mg oral tablet, [...] each, 0 Refills, Maintenance, 09/15/22 9:01:00 EDT, [facility]... Start Date: 09/15/22 Status: Ordered Stiolto Respimat 60 ACT 2.5 mcg-2.5 mcg/inh inhalation aerosol 2 puffs, Inhalation, Every 24 hours, # 4 Gm, 11 Refills, Maintenance, 05/15/22 12:29:00 EST, Aerosol, [facility] #[id number], Partial fill upon patient request if the [...] Care team information Care Team Personnel Name: Kaley Kline MD Position: S Physician - Primary Care Member Role: PCP Address: Address: [address] [place] [address] [place] [address]- Care Team Related Persons Name: LENARD LITTLEJOHN Address: home [address] [place] [address] Name: ELDA DAVIS Address: home [address] [place] [address]
--- OUTSIDE RECORDS SUMMARY | 2023-07-09 10:30 | XMS_ITS | Continuity of Care Document ---
Author Name Unknown Organization [facility] Address [address] [place] [address]- Care Team Providers Care Hand Stemmer Name Role Phone Eliud TAI, Kaley Corrales Primary Care Physician [facility]counter [facility] Date(s): 06/21/20 - 07/21/20 [facility] [address] [place] [address]- Allergies, Adverse Reactions, Alerts Substance Reaction Severity Status codeine Active clindamycin Active erythromycin Active amoxicillin Active azithromycin Active epinephrine-pilocarpine ophthalmic Active Cipro Active Sulfur Active Immunizations Given and Recorded Vaccine Date Status Refusal Reason SARS-CoV-2 (COVID-19) mRNA-1273 vaccine 07/16/20 G iven influenza virus vaccine, inactivated 01/16/20 Marlon rded influenza virus vaccine, inactivated 02/04/19 Marlon rded Influenza Virus Vaccine (oldterm) 02/07/16 Recorde d pneumococcal 13-valent vaccine 08/17/14 Recorded zoster vaccine, inactivated 02/26/14 Recorded pneumococcal 23-valent vaccine 06/30/11 Recorded Measles/Mumps/Rubella Virus Vaccine 02/10/10 Recor ded influ virus vac, H1N1, inactive(oldterm) 05/28/09 Recorded diphtheria/tetanus/pertussis, acel(DTaP) 07/10/08 Recorded Medications citalopram 40 mg oral tablet 1 tablet, By Mouth, Daily in AM, # 30 tablet, 5 Refills, Maintenance, 05/11/20 15:34:00 EST, [facility] #[id number], 167, cm, 05/30/19 9:46:00 EST, Height Start Date: 05/11/20 Status: Ordered famotidine 20 mg oral tablet 1, tablet, By Mouth, Daily at bedtime, # 30 tablet, Refills 5, Tot. Refills 0, Maintenance, 06/12/20 9:54:00 EST, Route to Pharmacy Electronically, [facility] #[id number], 167, cm, 05/30/19 9:46:00 EST, Height Start Date: 06/12/20 Status: Ordered Flax Seed Oil oral capsule 0 Refills, Maintenance, 01/03/19 10:12:18 EDT Start Date: 01/03/19 Status: Ordered flecainide 100 mg oral tablet 1 tablet = 100 mg, By Mouth, Every 12 hours, # 60 tablet, 0 Refills, Maintenance, 12/27/14 12:48:23, Tablet Start Date: 12/27/14 Status: Ordered levalbuterol 45 mcg/inh inhalation aerosol 2 puffs, Inhalation, Every 4 hours, PRN for wheezing, # 1 each, 11 Refills, Maintenance, 05/09/20 13:20:00 EST, Aerosol, [facility] #[id number], Partial fill upon patient request if the prescription is for a schedule II opioid drug., 167, cm, ... Start Date: 05/09/20 Stop Date: 05/04/21 Status: Ordered metoprolol 25 mg oral tablet, extended release ORAL, TABLET, EXTENDED RELEASE, 0 Refill(s),, Refills 0, 08/28/18 12:08:00 EDT Start Date: 08/28/18 Status: Ordered tiotropium 2.5 mcg/inh inhalation aerosol 2 puffs, Inhalation, Daily, # 4 Gm, 11 Refills, Maintenance, 05/09/20 13:19:00 EST, Aerosol, [facility] #[id number], Partial fill upon patient request if the prescription is for a schedule II opioid drug., 167, cm, 05/30/19 9:46:00 EST, Height Start Date: 05/09/20 Stop Date: 05/04/21 Status: Ordered Zyrtec 10 mg oral tablet 1 tablet = 10 mg, By Mouth, Daily, # 30 tablet, 0 Refills, Maintenance, 12/27/14 12:50:02, Tablet Start Date: 12/27/14 Status: Ordered Problem List Condition Effective Dates Status Health Status Inform ant Ankle pain(Confirmed) Active Anxiety(Confirmed) Active Atrial fibrillation(Confirmed) Active COPD (chronic obstructive pu lmonary disease)(Confirmed) Active Chronic rhinitis(Confirmed) Active Depressive disorder(Confirmed) Active Diverticular disease of colon(Confirmed) Active Enthesopathy of elbow region(Confirmed) Active GERD (gastroesophageal reflu x disease)(Confirmed) Active Hyperglycemia(Confirmed) Active Insomnia(Confirmed) Active Knee pain(Confirmed) Active Low back pain(Confirmed) Active Anxiety and depression(Confirmed) Active Obesity(Confirmed) Active LIBERTY on CPAP(Confirmed) Active Paroxysmal atrial fibrillation(Confirmed) Active Social History Social History Type Response Smoking Status Former smoker entered on: 12/27/14 Sex
--- OUTSIDE RECORDS SUMMARY | 2023-07-09 10:31 | XMS_ITS | Continuity of Care Document ---
Author Name Unknown Organization [facility] Address [address] [place] [address]- Care Team Providers Care Roll Weigher Name Role Phone Eliud TAI, Kaley M Primary Care Physician Encounter [facility] Date(s): 07/21/22 - 08/20/22 [facility] [address] [place] [address]- Attending Physician: [place] Carranza Admitting Physician: Admtr[place] Referring Physician: Admtr, Ar8 Allergies, Adverse Reactions, Alerts Substance Reaction Severity Status codeine Active clindamycin Active erythromycin Active amoxicillin Active azithromycin Active epinephrine-pilocarpine ophthalmic Active Cipro Active Sulfur Active Immunizations Given and Recorded Vaccine Date Status Refusal Reason SARS-CoV-2 mRNA-1273 (6m-5y) vaccine 02/11/22 Marlon rded [...] AM, # 30 tablet, 2 Refills, Maintenance, 06/29/22 15:41:00 EST, [facility] #[id number], Office visit needed for further refills., 167, cm, 05/28/22 16:04:00 EST, Height Start Date: 06/29/22 Status: Ordered famotidine 20 mg oral tablet 1, tablet, By Mouth, Daily at bedtime, # 90 tablet, Refills 0, Maintenance, 08/05/22 9:10:00 EDT, Route to Pharmacy Electronically, [facility] #[id number], 167, cm, 05/28/22 16:04:00 EST, Height Start [...] 11 Refills, Maintenance, 05/13/22 17:51:00 EST, Powder, [facility] #[id number], Partial fill upon patient request if the prescription is for a schedule I... Start Date: 05/13/22 Stop Date: 05/08/23 Status: Ordered levalbuterol 45 mcg/inh inhalation aerosol 2 puffs, Inhalation, Every 4 hours, PRN for wheezing, # 15 Gm, 11 Refills, Maintenance, 10/22/21 10:28:00 EDT, Aerosol, [facility][id number], Partial fill upon patient request if the [...] Maintenance, 05/15/22 12:29:00 EST, Aerosol, [facility] #[id number], Partial fill upon patient request if the [...] Confirmed Active Paroxysmal atrial fibrillation Confirmed Active Severe obesity Confirmed Active Social History Social History Type Response Smoking Status Former smoker entered on: 12/27/14 Sex Patient Care team information Care Team Personnel Name: Eliud TAI, Kaley Corrales Position: S Primary Care Physician Member Role: PCP Address: Address: [address] [place] [address]- Care Team Related Persons Name: LENARD LITTLEJOHN Address: home [address] [place] [address] Name: ELDA DAVIS Address: home [address] [place] [address]
[2023-07-09 10:47] VITALS: BP 132/78; PULSE 62; TEMP 37.1; O2SAT 92; BMI 42.3
--- NOTE | 2023-07-09 10:47 | AM.OFFWIN_ITS ---
Intake Vital Signs 07/09/23 10:47 Height 5 ft 6 in Weight 262 lb BMI 42.3 BP 132/78 Blood Pressure Location Lt brachial Pulse 62 Pulse Source Pulse Oximeter Temp 98.8 F Temp Source Oral Pulse Oximetry (%) 92 Oxygen Delivery Method Room Air Intake Visit Reasons: Fever/chills,weakness,cough Patient Tobacco Use Status: Former Tobacco user Allergies amoxicillin Allergy (Unknown, Verified 07/09/23 10:49) Hives azithromycin [Zithromax] Allergy (Unknown, Verified 07/09/23 10:49) Hives ciprofloxacin [Cipro] Allergy (Unknown, Verified 07/09/23 10:49) Hives codeine Allergy (Unknown, Verified 07/09/23 10:49) Hives Sulfa (Sulfonamide Antibiotics) Allergy (Unknown, Verified 07/09/23 10:49) Hives epinephrine Adverse Reaction (Severe, Verified 07/09/23 10:49) Anaphylaxis Clindamycin HCl Allergy (Unknown, Uncoded 07/09/23 10:49) Hives Erythromycin Allergy (Unknown, Uncoded 07/09/23 10:49) Hives HPI Fever/chills,weakness,cough HPI Details 68 y/o female presents with complaints o f fevers/chills, weakness and cough. She reports she woke up with symptoms Wednesday. Pt hx of COPD. She is already of cefdinir 300mg. [facility] Medical History (Updated 07/09/23 @ 11:02 by Jim Goel) Paroxysmal atrial flutter LIBERTY on CPAP Obesity Insomnia Hyperglycemia GERD (gastroesophageal reflux disease) Diverticular disease Chronic rhinitis COPD (chronic obstructive pulmonary disease) Depression Anxiety Surgical History History of gynecologic surgery History of hysteroscopy H/O section History of tonsillectomy History of endoscopic gastrointestinal surgery Social History (Updated 04/26/23 @ 10:33 by Sandra Lorenzo CMA) Household Members: Children Housing: House Alcohol intake: never Patient Tobacco Use Status: Former Tobacco user Cigarette Packs Per Day: 1.5 Cigarettes Per Day: 20 Years Smoked: 40 e-Cigarette/Vaping Use: Never Used service: No Current occupational status: retired Current occupational exposures/hazards: No Sexual orientation: Unable to collect Gender identity: Unable to collect Cognitive needs: No Hearing needs: No Vision needs: Yes (wears glasses) Review of Systems Const Reports chills, Denies fatigue, Reports fever(s), Denies headache(s) and Denies weakness ENT Denies dizziness and Denies headache(s) Card Denies dyspnea Resp Denies cough, Denies dyspnea, Denies wheezing and Denies other (shortness of breath) Musc Denies numbness and Denies tingling Neuro Denies dizziness, Denies headache(s), Denies numbness, Denies tingling and Denies weakness Psych Denies anxiety and Denies depression Endo Denies fatigue Aller/Immun Denies wheezing Physical Exam Vital Signs: Last Vital Signs Temp 98.8 F 07/09/23 10:47 Pulse 62 07/09/23 10:47 BP 132/78 07/09/23 10:47 Pulse Ox 92 07/09/23 10:47 Oxygen Delivery Method Room Air 07/09/23 10:47 BMI result Body Mass Index 42.3 Const General: well developed; No acute distress Nutritional Appearance: well nourished Orientation/consciousness: patient oriented x3 HEENT Head: Yes normocephalic and Yes atraumatic Eyes General: appearance normal, both eyes and all related structures Pupils: Equal, round and reactive pupils present EOM: EOMs intact bilaterally Resp Other: Left lower lung secretion sounds Effort & Inspection: normal respiratory effort Auscultation: not clear to auscultation bilaterally Neuro General: patient oriented x3 and gait normal Cranial nerves: Yes Equal, round and reactive pupils present Psych Affect: normal affect Assessment & Plan Assessment & Plan (1) Viral illness: Code(s): B34.9 - Viral infection, unspecified Plan: Likely?underlying?Viral?illness There?is?no?antibiotic?medication?for?viruses.??They?must?run?their?co urse.??Most?average?5-7?days?but?7-10?days?is?not?uncommon?and?up?to?14?days?is? still?possible.??A?cough?is?often?the?last?symptom?to?resolve?and?this?can?last? for?weeks?in?some?cases. Rest Hydrate?well?-??Drink?plenty?of?fluids.??Especially?water. Tylenol?or?ibuprofen?for?muscle?aches,?headache,?fever/discomfort Can?use?qqlm-mmw-zbpocpi?medications?for?cough?such?as?Delsym?or?DayQuil.??Presc ription?cough?medicines?have?been?shown?to?be?no?better. Swab?for?COVID/flu/RSV?sent?to?lab Long?holiday?weekend?for?some?staff.??Sent?script?for?Paxlovid?and?let?patient?k now?she?should?not?pick?it?up?unless?her?test?is?positive (2) Cough: Code(s): R05.9 - Cough, unspecified Plan: Significant?cough?and?history?of?COPD. Appears?to?be?COPD?exacerbation?secondary?to?her?viral?illness Will?give?her?short?course?of?prednisone. Use?leave?albuterol?for?symptoms Continue?tiotropium She?is?already?on?cefdinir?for?a?tooth?abscess - does?not?tolerate?most?other?antibiotics. Will?extend?this?an?additional?5?days?due?to?likely?COPD?exacerbation?and?concer ns?for?potential?pneumonia. (3) COPD exacerbation: Code(s): J44.1 - Chronic obstructive pulmonary disease with (acute) exacerbation Plan: As?above Orders: Orders SARS-CoV2/FLU/RSV Today B34.9 - Viral infection, unspecified, Z20.822 - Contact with and (suspected) exposure to COVID-19 Medications: New nirmatrelvir-ritonavir 300 mg (150 mg x 2)-100 mg (Paxlovid) take TWO 150 mg tablets of nirmatrelvir with ONE 100 mg tablet of ritonavir twice daily for 5 days PO 30 ea 0RF prednisone 40 mg (2 x 20 mg) PO DAILY 4 days 8 tabs 0RF Changed From cefdinir 300 mg PO Q12H 10 days 20 caps 0RF To cefdinir 300 mg PO Q12H 5 days 10 caps 0RF Coding Level of Care Code Est Pt Level 3 (35774) Diagnoses Viral illness B34.9 Cough R05.9 COPD exacerbation J44.1
== END 2023-07-09 11:08 | disposition home or self-care (01) ==
PROVIDERS: PCP Family Medicine; Visit Provider Family Medicine
DX: B34.9 Viral infection, unspecified (principal); R05.9 Cough, unspecified; J44.1 Chronic obstructive pulmonary disease with (acute) exacerbation
CPT/HCPCS: 99213

== ENCOUNTER 2023-07-09 14:46 | Outpatient (REF) | payer OTHER, SELFPAY ==
[2023-07-09 15:35] LABS: Influenza A PCR POSITIVE (Negative); Influenza B PCR NEGATIVE (Negative); Resp Syncy Virus RNA Qual PCR NEGATIVE (Negative); SARS COV2 PCR INHOUSE POSITIVE (Negative)
== END 2023-07-09 14:47 | disposition home or self-care (01) ==
LOC: HO.LNP 14:46
PROVIDERS: Visit Provider Family Medicine
DX: Z20.822 Contact with and (suspected) exposure to COVID-19 (principal); B34.9 Viral infection, unspecified
CPT/HCPCS: 0241U

== ENCOUNTER 2023-07-16 09:30 | Outpatient (AMB) | payer OTHER, SELFPAY ==
--- NOTE | 2023-07-16 09:35 | AM.OFFWIN_ITS ---
Intake Vital Signs 07/16/23 09:42 Height 5 ft 6 in BP 144/66 H Blood Pressure Location Lt brachial Position Sitting Respiration 15 Pulse 50 Pulse Source Pulse Oximeter Temp 97.2 F Temp Source Temporal Artery Scan Pulse Oximetry (%) 99 Intake Visit Reasons: ongoing covid symtpoms + test this am Intake Note: Patient reports she tested positive this morning for covid and she feels exhausted, coughing, and hard to breathe. Patient Tobacco Use Status: Former Tobacco user Utilization Manager Required: No Accompanied by: Self / Same As Patient Allergies amoxicillin Allergy (Unknown, Verified 07/16/23 09:56) Hives azithromycin [Zithromax] Allergy (Unknown, Verified 07/16/23 09:56) Hives ciprofloxacin [Cipro] Allergy (Unknown, Verified 07/16/23 09:56) Hives codeine Allergy (Unknown, Verified 07/16/23 09:56) Hives Sulfa (Sulfonamide Antibiotics) Allergy (Unknown, Verified 07/16/23 09:56) Hives epinephrine Adverse Reaction (Severe, Verified 07/16/23 09:56) Anaphylaxis Clindamycin HCl Allergy (Unknown, Uncoded 07/16/23 09:48) Hives Erythromycin Allergy (Unknown, Uncoded 07/16/23 09:48) Hives Medication List - Last Reconciled 07/16/23 by Erika Borden, CONSTRUCTION OPERATIONS MANAGER- cefdinir 300 mg PO Q12H 5 days cetirizine (Zyrtec) 10 mg PO DAILY PRN citalopram 40 mg PO QAM 90 days cyclosporine 0.05% (Restasis) 1 drp ophthalmic (eye) Q12H famotidine 20 mg PO DAILY 90 days levalbuterol tartrate 45 mcg/actuation 2 puffs inhalation Q4H PRN magnesium chloride ER 64 mg PO DAILY meloxicam 15 mg PO DAILY PRN 30 days metoprolol tartrate 25 mg PO BID tiotropium-olodaterol 2.5-2.5 mcg/actuation (Stiolto Respimat) 2 puffs inhalation DAILY Do you need a note to return to daycare/school/sports/work: No HPI HPI Comments History of Present Illness Details Here today w complaints of generalized weakness and exhaustion along with nausea in the setting COVID and flu. She was seen by her primary care provider on the 09 of July and tested positive for both flu and COVID. She was treated with Paxlovid. She completed this on Wednesday. She has COPD and has been using her rescue inhaler along with her maintenance inhaler. Reports that her breathing is fine. In addition she has been using o [id number] Tussin and Tylenol to help with her symptoms. She reports that her flu-like symptoms have improved. The only thing that she feels as the nausea and extreme exhaustion. Of note she is on cefdinir right now for an abscessed tooth. [facility] Medical History (Updated 07/09/23 @ 11:02 by Jim Goel) Paroxysmal atrial flutter LIBERTY on CPAP Obesity Insomnia Hyperglycemia GERD (gastroesophageal reflux disease) Diverticular disease Chronic rhinitis COPD (chronic obstructive pulmonary disease) Depression Anxiety Surgical History History of gynecologic surgery History of hysteroscopy H/O section History of tonsillectomy History of endoscopic gastrointestinal surgery Social History (Updated 04/26/23 @ 10:33 by Sandra Lorenzo CMA) Household Members: Children Housing: House Alcohol intake: never Patient Tobacco Use Status: Former Tobacco user Cigarette Packs Per Day: 1.5 Cigarettes Per Day: 20 Years Smoked: 40 e-Cigarette/Vaping Use: Never Used service: No Current occupational status: retired Current occupational exposures/hazards: No Sexual orientation: Unable to collect Gender identity: Unable to collect Cognitive needs: No Hearing needs: No Vision needs: Yes (wears glasses) Review of Systems Const All systems reviewed & are unremarkable except as noted in HPI and below Physical Exam Vital Signs: Last Vital Signs Temp 97.2 F 07/16/23 09:42 Pulse 50 07/16/23 09:42 Resp 15 07/16/23 09:42 BP 144/66 H 07/16/23 09:42 Pulse Ox 99 07/16/23 09:42 Const Other: Awake alert NAD Sclera and conjunctiva clear bilat TM intact and clear bilat MMM, pharynx WNL RRR LS CTAB Assessment & Plan Assessment & Plan (1) COVID-19: Code(s): U07.1 - COVID-19 (2) Influenza: Code(s): J11.1 - Influenza due to unidentified influenza virus with other respiratory manifestations Plan This note is constructed using voice recognition software. While every effort has been made to ensure accuracy in poultry farm supervisor, still errors may have been included Sometimes, these errors may affect the content or meaning of the given sentence . Total time spent caring for the patient today was 30 minutes. This includes time spent before the visit reviewing the chart, time spent during the visit, and time spent after the visit on documentation Medications: New ondansetron HCl 4 mg PO Q8H 3 days PRN 15 tabs 0RF nausea and vomiting Patient Instructions: Supportive care. I did let her know that the exhaustion and fatigue due come along with the current COVID virus. She just needs time and listen to her body. She should not push herself as this may worsen symptoms. She should also not remain completely mobile on bed rest as this could affect her breathing. Education provided to her today. Use zofran as needed for nausea. Be sure to eat and drink. Rest lots. No need to use your rescue inhaler scheduled. Use as needed. Isolation and Precautions for People with COVID-19 Updated October 01, 2022 If you were exposed to COVID-19, you should start taking precautions. Isolation and Exposure If you have COVID-19, you can spread the virus to others. There are precautions you can take to prevent spreading it to others: isolation, masking, and avoiding contact with people who are at high risk of getting very sick. Isolation is used to separate people with confirmed or suspected COVID-19 from those without COVID-19. These recommendations do not change based on COVID-19 hospital admission levels. If you have COVID-19, also see additional information on treatments that may be available to you. This information is intended for a general audience. Healthcare professionals should see Ending Isolation and Precautions for People with COVID-19. This CDC guidance is meant to supplement?not replace?any federal, state, local, territorial, or [place] health and safety laws, rules, and regulations. For Healthcare Professionals: Ending Isolation and Precautions for People with COVID-19 When to Isolate Regardless of vaccination status, you should isolate from others when you have COVID-19. You should also isolate if you are sick and suspect that you have COVID-19 but do not yet have test results. If your results are positive, follow the full isolation recommendations below. If your results are negative, you can end your isolation. IF YOU TEST Negative You can end your isolation IF YOU TEST Positive Follow the full isolation recommendations below When you have COVID-19, isolation is counted in days, as follows: If you had no symptoms Day 0 is the day you were tested (not the day you received your positive test result) Day 1 is the first full day following the day you were tested If you develop symptoms within 10 days of when you were tested, the clock restarts at day 0 on the day of symptom onset If you had symptoms Day 0 of isolation is the day of symptom onset, regardless of when you tested positive Day 1 is the first full day after the day your symptoms started Isolation If you test positive for COVID-19, stay home for at least 5 days and isolate from others in your home. You are likely most infectious during these first 5 days. Wear a high-quality mask if you must be around others at home and in public. Do not go places where you are unable to wear a mask. For travel guidance, see CDC?s Travel webpage. Do not travel. Stay home and separate from others as much as possible. Use a separate bathroom, if possible. Take steps to improve ventilation at home, if possible. Don?t share personal household items, like cups, towels, and utensils. Monitor your symptoms. If you have an emergency warning sign (like trouble breathing), seek emergency medical care immediately. Learn more about what to do if you have COVID-19. Ending Isolation End isolation based on how serious your COVID-19 symptoms were. Loss of taste and smell may persist for weeks or months after recovery and need not delay the end of isolation. If you had no symptoms You may end isolation after day 5. If you had symptoms and: Your symptoms are improving You may end isolation after day 5 if: You are fever-free for 24 hours (without the use of fever-reducing medication). Your symptoms are not improving Continue to isolate until: You are fever-free for 24 hours (without the use of fever-reducing medication). Your symptoms are improving. 1 If you had symptoms and had: Moderate illness (you experienced shortness of breath or had difficulty breathing) You need to isolate through day 10. Severe illness (you were hospitalized) or have a weakened immune system You need to isolate through day 10. Consult your doctor before ending isolation. Ending isolation without a viral test may not be an option for you. If you are unsure if your symptoms are moderate or severe or if you have a weakened immune system, talk to a healthcare provider for further guidance. Regardless of when you end isolation Until at least day 11: Avoid being around people who are more likely to get very sick from COVID-19. Remember to wear a high-quality mask when indoors around others at home and in public. Do not go places where you are unable to wear a mask until you are able to discontinue masking (see below). For travel guidance, see CDC?s Travel webpage. Removing Your Mask After you have ended isolation, when you are feeling better (no fever without the use of fever-reducing medications and symptoms improving), Wear your mask through day 10. OR If you have access to antigen tests, you should consider using them. With two sequential negative tests 48 hours apart, you may remove your mask sooner than day 10. Note: If your antigen test results1 are positive, you may still be infectious. You should continue wearing a mask and wait at least 48 hours before taking another test. Continue taking antigen tests at least 48 hours apart until you have two sequential negative results. This may mean you need to continue wearing a mask and testing beyond day 10. After you have ended isolation, if your COVID-19 symptoms recur or worsen, restart your isolation at day 0. Talk to a healthcare provider if you have questions about your symptoms or when to end isolation. [1] As noted in the Food and Drug Administration labeling for authorized [id number] antigen tests, negative test results do not rule out SARS-CoV-2 infection and should not be used as the sole basis for treatment or patient management decisions, including infection control decisions. Last Updated October 01, 2022 Coding Level of Care Code Est Pt Level 4 (50675) Diagnoses COVID-19 U07.1 Influenza J11.1
[2023-07-16 09:42] VITALS: BP 144/66; PULSE 50; RESP 15; TEMP 36.2; O2SAT 99
== END 2023-07-16 12:04 | disposition home or self-care (01) ==
PROVIDERS: PCP Family Medicine; Visit Provider Nurse Practitioner Family
DX: U07.1 COVID-19 (principal); J11.1 Influenza due to unidentified influenza virus with other respiratory manifestations
CPT/HCPCS: 99214

== ENCOUNTER 2023-10-21 09:29 | Outpatient (AMB) | payer OTHER, SELFPAY ==
[2023-10-21 09:37] VITALS: BP 108/70; PULSE 83; RESP 14; TEMP 36.1; O2SAT 94; BMI 43.8
--- NOTE | 2023-10-21 09:37 | MHC.PC.OV ---
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 Accompanied by: Self / Same As Patient Allergies amoxicillin Allergy (Unknown, Verified 10/21/23 09:42) Hives azithromycin [Zithromax] Allergy (Unknown, Verified 10/21/23 09:42) Hives ciprofloxacin [Cipro] Allergy (Unknown, Verified 10/21/23 09:42) Hives codeine Allergy (Unknown, Verified 10/21/23 09:42) Hives Sulfa (Sulfonamide Antibiotics) Allergy (Unknown, Verified 10/21/23 09:42) Hives epinephrine Adverse Reaction (Severe, Verified 10/21/23 09:42) Anaphylaxis Clindamycin HCl Allergy (Unknown, Uncoded 07/16/23 09:48) Hives Erythromycin Allergy (Unknown, Uncoded 07/16/23 09:48) Hives Tobacco use date assessed: 10/21/23 Fall risk assessment: No Falls in past year Last assessed Fall Risk: 10/21/23 Dental Screening Dental Screen Date: 10/21/23 Did you have a dental visit in the last 12 months?: Yes Did you have a dental problem in the last 6 months where you did not have access to dental care?: No Was dental information given to patient?: Patient has dentist HPI pre-diabetes f/u HPI Details 68 y/o female presents to f/u pre-diabetes. Last A1c 07/05/23 5.7%. A1c today 10/21/23 is Has complaints of lower back pain. Also has complaints of hip pain. She states she has meloxicam for relief. HPI Comments History of Present Illness Details Documentation assistance for Brian Arguelles MD, was provided by Jim Goel, Blueprinting Machine Operator on 10/21/2023 at 10:29 AM EST. I, Dr. Arguelles, have read, observed, and verified documentation. [facility] Medical History Paroxysmal atrial flutter LIBERTY on CPAP Obesity Insomnia Hyperglycemia GERD (gastroesophageal reflux disease) Diverticular disease Chronic rhinitis COPD (chronic obstructive pulmonary disease) Depression Anxiety Surgical History History of gynecologic surgery History of hysteroscopy H/O section History of tonsillectomy History of endoscopic gastrointestinal surgery Social History Household Members: Children Housing: House Alcohol intake: never Patient Tobacco Use Status: Former Tobacco user Cigarette Packs Per Day: 1.5 Cigarettes Per Day: 20 Years Smoked: 40 e-Cigarette/Vaping Use: Never Used service: No Current occupational status: retired Current occupational exposures/hazards: No Sexual orientation: Unable to collect Gender identity: Unable to collect Cognitive needs: No Hearing needs: No Vision needs: Yes (wears glasses) Questionnaire Thrive Questionnaire Date Thrive assessed: 07/05/23 RIC-7 AMB Questionnaire RIC-7 Date RIC - 7 assessed: 07/05/23 Source: Developed by Drs. Mejia Bess, Jen Erickson, Patrick Morejon and colleagues, with an educational tete from [employer]. Review of Systems Const Denies chills, Denies fatigue, Denies fever(s), Denies headache(s) and Denies weakness ENT Denies dizziness and Denies headache(s) Card Denies dyspnea Resp Denies cough, Denies dyspnea, Denies wheezing and Denies other (shortness of breath) Musc Details: Hip pain Reports back pain, Denies numbness and Denies tingling Neuro Denies dizziness, Denies headache(s), Denies numbness, Denies tingling and Denies weakness Psych Denies anxiety and Denies depression Endo Denies fatigue Aller/Immun Denies wheezing Physical exam (Primary Care) Vital Signs: Last Vital Signs Temp 97 F 10/21/23 09:37 Pulse 83 10/21/23 09:37 Resp 14 10/21/23 09:37 BP 108/70 10/21/23 09:37 Pulse Ox 94 10/21/23 09:37 Oxygen Delivery Method Room Air 10/21/23 09:37 BMI result Body Mass Index 43.8 Tobacco/Smoking Status: Tobacco use Status Tobacco use date assessed 10/21/23 10/21/23 09:44 Patient Tobacco Use Status Former Tobacco user 10/21/23 09:44 e-Cigarette/Vaping Use Never Used 10/21/23 09:44 Thrive Assessment: Date of Thrive Assessment Date Thrive assessed 07/05/23 10/21/23 09:44 Const General: well developed; No acute distress Nutritional Appearance: well nourished and obese morbidly obese Orientation/consciousness: patient oriented x3 HENMT Head: Yes normocephalic and Yes atraumatic Eyes General: appearance normal, both eyes and all related structures Pupils: Equal, round and reactive pupils present EOM: EOMs intact bilaterally Resp Other: Coarse breath sounds Effort & Inspection: normal respiratory effort Auscultation: clear to auscultation bilaterally Cardio Rate: regular rate Rhythm: regular rhythm Heart sounds: S1 normal heart sound present, S2 normal heart sound present, no gallops, no murmurs and no rubs Neuro General: patient oriented x3 and gait normal Cranial nerves: Yes Equal, round and reactive pupils present Psych Affect: normal affect Results AMB Hemoglobin A1c AMB Hemoglobin A1c 6.2 % Last Edit by KADEN Alatorre on 10/21/23 10:08 Results Reviewed Results Reviewed: Laboratory Last Values Hgb A1c (Clinic) 6.2 % (4.0-6.0) H 10/21/23 10:07 Assessment and Plan Assessment & Plan (1) Pre-diabetes: Code(s): R73.03 - Prediabetes Plan: Encouraged?diet?low?in?sugars?and?starches Encouraged?exercise?as?tolerated?and?weight?loss Will?continue?to?follow (2) Back pain: Code(s): M54.9 - Dorsalgia, unspecified Plan: Severe?worsening?back?and?hip?pain Had?been?benefitting?from?physical?therapy?prior?to?viral?illness?in?June. Restart?physical?therapy (3) Hip pain: Code(s): M25.559 - Pain in unspecified hip (4) Depression with anxiety: Code(s): F41.8 - Other specified anxiety disorders Plan: Patient?currently?takes?citalopram?40?mg?daily?and?has?done?so?for?years. We?discussed?that?given?her?significant?increases?in?pain, we?could?consider?switching?citalopram?to?duloxetine Will?discuss?further?at?subsequent?visit. Continue?citalopram?for?now. Orders: Orders AMB Hemoglobin A1c Today R73.03 - Prediabetes PT Evaluation and Treatment Today M25.559 - Pain in unspecified hip, M54.9 - Dorsalgia, unspecified, R29.898 - Other symptoms and signs involving the musculoskeletal system Coding Level of Care Code Est Pt Level 4 (09690) Diagnoses Pre-diabetes R73.03 Back pain M54.9 Hip pain M25.559 Depression with anxiety F41.8
== END 2023-10-21 10:31 | disposition home or self-care (01) ==
PROVIDERS: PCP Family Medicine; Visit Provider Family Medicine
DX: R73.03 Prediabetes (principal); M54.9 Dorsalgia, unspecified; F41.8 Other specified anxiety disorders; M25.559 Pain in unspecified hip
CPT/HCPCS: 83036; 99214

== ENCOUNTER 2023-11-29 07:00 | Outpatient (RCR) | payer OTHER, SELFPAY ==
--- NOTE | 2023-11-05 12:24 | MHC.PT.EP ---
[facility] [place] Office [place] Office [place] Office [address] Anand Sanford [address] [phone] F: [phone] F: [phone] F: [phone] F: [phone] Physical Therapy Plan of Care Date of Evaluation: 11/05/23 Date of Surgery: N/A Diagnosis: M54.9 Dorsalgia, unspecified M25.559 Pain in unspecified hip R29.898 Other symptoms and signs involving the musculoskeletal system by Dr Arguelles 10/21/23 Assessment: Pt. is a 68 y/o female referred to PT from Dr. Kindra MD on 10/21/23 for dorsalgia and hip pain. She expresses wanting to exercise and get better. She has had PT in the past (last March for 6 visits) and has a positive outlook for treatment. Therapist should be aware of PMH of COPD , AFIB and bilateral knee OA. Pt reports history of covif/flu/bronchitis in June which she states she still is recovering from. Pt. states she does not participate in regular physical activity, but is trying to lose weight, states she lost seven pounds since last PCP visit (has been following new diet, (recorded at recent PCP visit, height: 5'6 weight: 271 lbs). Along with back, hip and knee pain (greater on L) pt also shows symptoms consistent w/ plantar fasciitis on the R including TTP and pain at R arch and pain in the AM . Callus noted on R plantar surface of the great toe along with inflammation noted on R tib posterior. Pt. wearing sandals and states she prefers to be barefoot at home; she does not normally wear sneakers. Bilateral LE and lumbar ROM and strength limited and painful. Pt. is unable to tolerate standing/supine position for a long period of time and has relief with sitting. Pt exhibits cluster of sx consistent with possible spinal stenosis diagnosis. Has had xrays MRI in past (to bring results in). Reports (+) family hx of Mom and brother with spinal stenosis. Today she noted pain in her L groinaddctor w/ increased mvmt and screening, stating that it could be due to vacuuming her whole house two days ago. Pt. will attend PT 2X a week for 6 weeks to assess goals, physical impairments (decreased LE/trunk ROM and strength) and functional limitations (standing activities, cooking, cleaning, reaching forward). Rehab prognosis is good based on motivation, PMH, and goals to improve. Frequency and Duration: The patient will be seen 2X a wk for 6 wks Short Term Goals: -Increase L knee flexion to 120 (IR 105) -Increase L hip flexion 100 (IR 65) -Stand for 10 minutes w/o pain greater than 4/10 in LB -Demonstrate good strength/eccentric control with SLR On L -Rise from a chair on first attempt without back pain >3/10 Mcfp Goals: -Score no greater than 25% on the modified Oswestry (IR 52%) -score no less than 60 on LEFS (IR 26) -Improve standing tolrance to complete meal prep w/ pain < 3/10 in L/S. -Be able to tolerate walking 1 mile around neighborhood. -Increase L hip flexion strength to 5/5 (IR: 3-/5 ) -Increase R hip flexion strength to 5/5 (IR: 4-/5) -Become independent w/ HEP Treatment Plan: Modalities to reduce pain, spasms and effusion. Manual therapy to restore motion and function. Therapeutic exercise to improve strength and flexibility. Neuromuscular re-education for posture and balance. Therapeutic activities to return to functional activities of daily living. Electronically signed by: Alisha Rivas,PT, DPT Please sign and return to therapist. Thank you for your referral.
--- NOTE | 2023-11-05 12:25 | MHC.PT.EP ---
[facility] [place] Office [place] Office [place] Office [address] Anand Sanford [address] [phone] F: [phone] F: [phone] F: [phone] F: [phone] Physical Therapy Plan of Care Date of Evaluation: 11/05/23 Date of Surgery: N/A Diagnosis: M54.9 Dorsalgia, unspecified M25.559 Pain in unspecified hip R29.898 Other symptoms and signs involving the musculoskeletal system by Dr Arguelles 10/21/23 Assessment: Pt. is a 68 y/o female referred to PT from Dr. Kindra MD on 10/21/23 for dorsalgia and hip pain. She expresses wanting to exercise and get better. She has had PT in the past (last March for 6 visits) and has a positive outlook for treatment. Therapist should be aware of PMH of COPD , AFIB and bilateral knee OA. Pt reports history of covif/flu/bronchitis in June which she states she still is recovering from. Pt. states she does not participate in regular physical activity, but is trying to lose weight, states she lost seven pounds since last PCP visit (has been following new diet, (recorded at recent PCP visit, height: 5'6 weight: 271 lbs). Along with back, hip and knee pain (greater on L) pt also shows symptoms consistent w/ plantar fasciitis on the R including TTP and pain at R arch and pain in the AM . Callus noted on R plantar surface of the great toe along with inflammation noted on R tib posterior. Pt. wearing sandals and states she prefers to be barefoot at home; she does not normally wear sneakers. Bilateral LE and lumbar ROM and strength limited and painful. Pt. is unable to tolerate standing/supine position for a long period of time and has relief with sitting. Pt exhibits cluster of sx consistent with possible spinal stenosis diagnosis. Has had xrays MRI in past (to bring results in). Reports (+) family hx of Mom and brother with spinal stenosis. Today she noted pain in her L groinaddctor w/ increased mvmt and screening, stating that it could be due to vacuuming her whole house two days ago. Pt. will attend PT 2X a week for 6 weeks to assess goals, physical impairments (decreased LE/trunk ROM and strength) and functional limitations (standing activities, cooking, cleaning, reaching forward). Rehab prognosis is good based on motivation, PMH, and goals to improve. Frequency and Duration: The patient will be seen 2X a wk for 6 wks Short Term Goals: -Increase L knee flexion to 120 (IR 105) -Increase L hip flexion 100 (IR 65) -Stand for 10 minutes w/o pain greater than 4/10 in LB -Demonstrate good strength/eccentric control with SLR On L -Rise from a chair on first attempt without back pain >3/10 Alf Goals: -Score no greater than 25% on the modified Oswestry (IR 52%) -score no less than 60 on LEFS (IR 26) -Improve standing tolrance to complete meal prep w/ pain < 3/10 in L/S. -Be able to tolerate walking 1 mile around neighborhood. -Increase L hip flexion strength to 5/5 (IR: 3-/5 ) -Increase R hip flexion strength to 5/5 (IR: 4-/5) -Become independent w/ HEP Treatment Plan: Modalities to reduce pain, spasms and effusion. Manual therapy to restore motion and function. Therapeutic exercise to improve strength and flexibility. Neuromuscular re-education for posture and balance. Therapeutic activities to return to functional activities of daily living. Electronically signed by: Alisha Rivas,PT, DPT Please sign and return to therapist. Thank you for your referral.
== END 2024-06-14 11:32 | disposition home or self-care (01) ==
LOC: HO.PTWFD 07:00
PROVIDERS: PCP Family Medicine; Visit Provider Family Medicine
DX: M54.9 Dorsalgia, unspecified (principal); R29.898 Other symptoms and signs involving the musculoskeletal system; M25.551 Pain in right hip; M25.552 Pain in left hip
CPT/HCPCS: 97110; 97140; 97162; 97530; 97535

== ENCOUNTER 2023-12-07 07:59 | Outpatient (AMB) | payer OTHER, SELFPAY ==
--- NOTE | 2023-12-07 08:06 | A.OFFPC_ITS ---
Intake Visit Reasons: Bad back spasm Allergies amoxicillin Allergy (Unknown, Verified 10/21/23 09:42) Hives azithromycin [Zithromax] Allergy (Unknown, Verified 10/21/23 09:42) Hives ciprofloxacin [Cipro] Allergy (Unknown, Verified 10/21/23 09:42) Hives codeine Allergy (Unknown, Verified 10/21/23 09:42) Hives Sulfa (Sulfonamide Antibiotics) Allergy (Unknown, Verified 10/21/23 09:42) Hives epinephrine Adverse Reaction (Severe, Verified 10/21/23 09:42) Anaphylaxis Clindamycin HCl Allergy (Unknown, Uncoded 07/16/23 09:48) Hives Erythromycin Allergy (Unknown, Uncoded 07/16/23 09:48) Hives Tobacco use date assessed: 10/21/23 Dental Screening Dental Screen Date: 10/21/23 [facility] Medical History Paroxysmal atrial flutter LIBERTY on CPAP Obesity Insomnia Hyperglycemia GERD (gastroesophageal reflux disease) Diverticular disease Chronic rhinitis COPD (chronic obstructive pulmonary disease) Depression Anxiety Surgical History History of gynecologic surgery History of hysteroscopy H/O section History of tonsillectomy History of endoscopic gastrointestinal surgery Social History Household Members: Children Housing: House Alcohol intake: never Patient Tobacco Use Status: Former Tobacco user Cigarette Packs Per Day: 1.5 Cigarettes Per Day: 20 Years Smoked: 40 e-Cigarette/Vaping Use: Never Used service: No Current occupational status: retired Current occupational exposures/hazards: No Sexual orientation: Unable to collect Gender identity: Unable to collect Cognitive needs: No Hearing needs: No Vision needs: Yes (wears glasses) Questionnaire Thrive Questionnaire Date Thrive assessed: 07/05/23 RIC-7 AMB Questionnaire RIC-7 Date RIC - 7 assessed: 07/05/23 Source: Developed by Drs. Mejia Bess, Jen Erickson, Patrick Morejon and colleagues, with an educational tete from [employer]. Physical exam (Primary Care) Tobacco/Smoking Status: Tobacco use Status Tobacco use date assessed 10/21/23 10/21/23 09:44 Patient Tobacco Use Status Former Tobacco user 10/21/23 09:44 e-Cigarette/Vaping Use Never Used 10/21/23 09:44 Thrive Assessment: Date of Thrive Assessment Date Thrive assessed 07/05/23 10/21/23 09:44 Coding
--- NOTE | 2023-12-07 08:11 | AM.OFFWIN_ITS ---
Intake Vital Signs 12/07/23 08:12 BMI Reason not done Patient refused/unable BP 108/72 Blood Pressure Location Rt brachial Position Sitting Respiration 18 Pulse 56 Pulse Source Pulse Oximeter Temp 98.1 F Temp Source Oral Pulse Oximetry (%) 98 Oxygen Delivery Method Room Air Intake Visit Reasons: Bad back spasm Intake Note: Back spasm Patient Tobacco Use Status: Former Tobacco user Allergies amoxicillin Allergy (Unknown, Verified 12/07/23 08:20) Hives azithromycin [Zithromax] Allergy (Unknown, Verified 12/07/23 08:20) Hives ciprofloxacin [Cipro] Allergy (Unknown, Verified 12/07/23 08:20) Hives codeine Allergy (Unknown, Verified 12/07/23 08:20) Hives Sulfa (Sulfonamide Antibiotics) Allergy (Unknown, Verified 12/07/23 08:20) Hives epinephrine Adverse Reaction (Severe, Verified 12/07/23 08:20) Anaphylaxis Clindamycin HCl Allergy (Unknown, Uncoded 12/07/23 08:20) Hives Erythromycin Allergy (Unknown, Uncoded 12/07/23 08:20) Hives Medication List - Last Reconciled 12/07/23 by Erika Borden, ARTIFICIAL BREAST FABRICATOR-BC cetirizine (Zyrtec) 10 mg PO DAILY PRN citalopram 40 mg PO QAM 90 days cyclosporine 0.05% (Restasis) 1 drp ophthalmic (eye) Q12H famotidine 20 mg PO DAILY 90 days levalbuterol tartrate 45 mcg/actuation 2 puffs inhalation Q4H PRN magnesium chloride ER 64 mg PO DAILY meloxicam 15 mg PO DAILY PRN 30 days metoprolol tartrate 25 mg PO BID tiotropium-olodaterol 2.5-2.5 mcg/actuation (Stiolto Respimat) 2 puffs inhalation DAILY Do you need a note to return to daycare/school/sports/work: No HPI HPI Comments History of Present Illness Details 68 y/o F here today with complaints of r ight low back pain associated with spasm. Her symptoms started on Wednesday. She reports a history of low back pain and muscle spasms. She started with supportive care to include a home TENS unit, heat and ice alternating without relief. She then took meloxicam times a total of 2 doses with very minimal relief. She denies any fever, chills, abdominal pain, nausea, vomiting, bowel or bladder issues, numbness or tingling, loss of function or strength, overt injury or any other red flag symptoms associated with back pain. She reports the last time this happened was October of 2022 and she received an IM injection of ketorolac with profound effect. The note from this visit was reviewed today. Exam Awake alert oriented Head atraumatic Neck full range of motion Speaking in full sentences No Spinal tenderness; + pain over right mid to low back associated with paraspinal muscle spasm that is worse with position change. Moves all extremities x4. Ambulates with normal gait. Neurovascularly intact Plan: Ketoralac 30mg x 1 Start Meloxicam 15 mg daily x 2 weeks, take with food. then stop, start this tomorrow. Continue with supportive care such as your TENS unit, heat alternating with ice. Slow gentle mobility and stretching, avoid periods of prolonged immobility. Edu on reasons to seek add'l care. This note is constructed using voice recognition software. While every effort has been made to ensure accuracy in furnace setter, still errors may have been included Sometimes, these errors may affect the content or meaning of the given sentence . [facility] Medical History Paroxysmal atrial flutter LIBERTY on CPAP Obesity Insomnia Hyperglycemia GERD (gastroesophageal reflux disease) Diverticular disease Chronic rhinitis COPD (chronic obstructive pulmonary disease) Depression Anxiety Surgical History History of gynecologic surgery History of hysteroscopy H/O section History of tonsillectomy History of endoscopic gastrointestinal surgery Social History Household Members: Children Housing: House Alcohol intake: never Patient Tobacco Use Status: Former Tobacco user Cigarette Packs Per Day: 1.5 Cigarettes Per Day: 20 Years Smoked: 40 e-Cigarette/Vaping Use: Never Used service: No Current occupational status: retired Current occupational exposures/hazards: No Sexual orientation: Unable to collect Gender identity: Unable to collect Cognitive needs: No Hearing needs: No Vision needs: Yes (wears glasses) Physical Exam Vital Signs: Last Vital Signs Temp 98.1 F 12/07/23 08:12 Pulse 56 07/16/24 08:12 Resp 18 12/07/23 08:12 BP 108/72 12/07/23 08:12 Pulse Ox 98 12/07/23 08:12 Oxygen Delivery Method Room Air 12/07/23 08:12 Office Meds ketorolac 30 mg/mL (1 mL) injection solution Performing Provider: ALBERT Blanco Performing Location: [facility] Administered by: Nicole Alexander RN on 12/07/23 08:43 Dose Route Admin Location Dispensed Lot Number Expiration Date NDC [employer] Grinder [employer] Screener 30 mg IM right gluteus rachell 1 mL [id number] 01/22/24 66230-815-47 [employer] Comments: ketorolac 30mg im right buttocks. Assessment & Plan Assessment & Plan (1) Spasm of muscle of lower back: Code(s): M62.830 - Muscle spasm of back Plan: . Plan Total time spent caring for the patient today was 30 minutes. This includes time spent before the visit reviewing the chart, time spent during the visit, and time spent after the visit on documentation Orders: Orders AMB Ketorolac Injection Today M62.830 - Muscle spasm of back Coding Level of Care Code Est Pt Level 4 (33732) Diagnoses Spasm of muscle of lower back M62.830
[2023-12-07 08:12] VITALS: BP 108/72; PULSE 56; RESP 18; TEMP 36.7; O2SAT 98
== END 2023-12-07 09:20 | disposition home or self-care (01) ==
PROVIDERS: PCP Family Medicine; Visit Provider Nurse Practitioner Family
DX: M62.830 Muscle spasm of back (principal)
CPT/HCPCS: 96372; 99214; J1885

== ENCOUNTER 2023-12-15 07:41 | Outpatient (REF) | payer OTHER, SELFPAY ==
[2023-12-15 11:57] LABS: MANUAL DIFF FLAG NO
[2023-12-15 12:00] LABS: Basophils Percent Auto 0.5 % (0-2); Eosinophils Absolute Auto 0.3 X10*3/uL (0.0-0.4); Eosinophils Percent Auto 4.5 % (0-4); Hematocrit 46.9 % (37.0-47.0); Hemoglobin 15.6 g/dl (12.0-16.0); Imm Gran Abs Auto 0.02 X10*3/uL (0.00-0.03); Imm Gran Pct Auto 0.3 % (0.0-0.4); Lymphocytes Percent Auto 16.1 % (20-40); Mean Corpuscular HGB Conc 33.3 g/dl (31.0-35.0); Mean Corpuscular Hemoglobin 29.4 pg (27.0-33.0); Mean Corpuscular Volume 88.3 fL (80.0-98.0); Mean Platelet Volume 11.9 fL (9.4-12.3); Monocytes Absolute Auto 0.5 X10*3/uL (0.1-1.2); Monocytes Percent Auto 7.9 % (2-11); Neutrophils Absolute Auto 4.3 x10*3/uL (2.0-8.3); Neutrophils Percent Auto 70.7 % (45-73); Platelet Count 230 X10*3/uL (160-400); Red Blood Count 5.31 X10*6/uL (4.20-5.50); Red Cell Distribution Width 14.2 % (11.0-16.0)
[2023-12-15 12:17] LABS: Alanine Aminotransferase 23 U/L (0-31); Albumin Level 4.4 g/dL (3.5-5.0); Alkaline Phosphatase 70 U/L (39-117); Anion Gap 15 (12-20); Aspartate Amino Transferase 26 U/L (5-31); Bilirubin Total 0.5 mg/dL (0.0-1.0); Blood Urea Nitrogen 15 mg/dL (9-16); Calcium 10.3 mg/dL (8.4-10.2); Carbon Dioxide 24 mmol/L (22-29); Chloride 103 mmol/L (96-108); Estimated Glomerular Filt Rate 57; Glucose Fasting 95 mg/dL (60-99); Potassium 4.6 mmol/L (3.3-5.1); Sodium 137 mmol/L (135-145); Total Protein 8.5 g/dL (6.5-8.0)
[2023-12-15 12:32] LABS: Appearance Urine Clear; Color Urine Yellow; Glucose Urine UA Negative (Negative); Leukocyte Esterase Urine Moderate (2+) (Negative); Nitrite Urine Negative (Negative); UMIC TRIGGER UA YES; Urine Blood Negative (Negative); Urine Ketones Negative (Negative); Urine Protein Negative (Neg-Trace)
[2023-12-15 12:43] LABS: Erythrocyte Sedimentation Rate 29 MM/HR (0-20)
[2023-12-15 12:56] LABS: Bacteria Urine 4+ (None Seen); Hyaline Casts Urine 0-2 /LPF (0-2); RBC Urine 0-2 /HPF (0-2)
[2023-12-15 13:18] LABS: Rheumatoid Factor < 13.0 IU/mL (<15.0)
[2023-12-16 11:13] LABS: CRP High Sensitivity 5.8 mg/L
[2023-12-20 14:13] LABS: Anti Nuclear Antibody Screen NEGATIVE (NEGATIVE)
== END 2023-12-15 07:42 | disposition home or self-care (01) ==
LOC: HO.WFDLDS 07:41
PROVIDERS: Visit Provider Family Medicine
DX: Z00.00 Encounter for general adult medical examination without abnormal findings (principal); M25.559 Pain in unspecified hip; R73.03 Prediabetes
CPT/HCPCS: 36415; 80053; 81001; 81003; 85025; 85652; 86038; 86141; 86431

== ENCOUNTER 2023-12-23 08:36 | Outpatient (AMB) | payer OTHER, SELFPAY ==
--- NOTE | 2023-12-23 08:58 | MHC.PC.OV ---
Vital Signs 12/23/23 09:00 Height 5 ft 6 in Weight 260 lb 8 oz BMI 42.0 BP 126/68 Blood Pressure Location Rt brachial Position Sitting Pulse 64 Pulse Source Pulse Oximeter Pulse Oximetry (%) 99 Oxygen Delivery Method Room Air Intake Visit Reasons: f/u chronic conditions Intake Note: Patient is here to follow up on Knee pain, Back pain. Arthritis Advanced Solutions Architect Required: No Under Ground Miner: Not Required per policy Accompanied by: Self / Same As Patient Allergies amoxicillin Allergy (Unknown, Verified 12/23/23 09:00) Hives azithromycin [Zithromax] Allergy (Unknown, Verified 12/23/23 09:00) Hives ciprofloxacin [Cipro] Allergy (Unknown, Verified 12/23/23 09:00) Hives codeine Allergy (Unknown, Verified 12/23/23 09:00) Hives Sulfa (Sulfonamide Antibiotics) Allergy (Unknown, Verified 12/23/23 09:00) Hives epinephrine Adverse Reaction (Severe, Verified 12/23/23 09:00) Anaphylaxis Clindamycin HCl Allergy (Unknown, Uncoded 12/07/23 08:20) Hives Erythromycin Allergy (Unknown, Uncoded 12/23/23 09:00) Hives Medication List - Last Reconciled 12/23/23 by Brian Arguelles MD cetirizine (Zyrtec) 10 mg PO DAILY PRN citalopram 40 mg PO QAM 90 days famotidine 20 mg PO DAILY 90 days levalbuterol tartrate 45 mcg/actuation 2 puffs inhalation Q4H PRN magnesium chloride ER 64 mg PO DAILY meloxicam 15 mg PO DAILY PRN 30 days metoprolol tartrate 25 mg PO BID tiotropium-olodaterol 2.5-2.5 mcg/actuation (Stiolto Respimat) 2 puffs inhalation DAILY Tobacco use date assessed: 12/23/23 Fall risk assessment: No Falls in past year Last assessed Fall Risk: 12/23/23 Dental Screening Dental Screen Date: 10/21/23 HPI f/u chronic conditions HPI Details 68 y/o female presents to f/u pre-diabetes, back pain with hip and lower extremity pain and weakness. Had started her on physical therapy for back/hip pain and deconditioning/weakness. Last A1c 10/21/23 6.2%. Fasting blood sugar today 95. She notes she has been making dietary changes. Labs drawn 12/15/23. Reviewed labs with pt. Mildly elevated inflammatory markers. 4+ urine bacteria seen. [facility] Medical History Paroxysmal atrial flutter LIBERTY on CPAP Obesity Insomnia Hyperglycemia GERD (gastroesophageal reflux disease) Diverticular disease Chronic rhinitis COPD (chronic obstructive pulmonary disease) Depression Anxiety Surgical History History of gynecologic surgery History of hysteroscopy H/O section History of tonsillectomy History of endoscopic gastrointestinal surgery Social History Household Members: Children Housing: House Alcohol intake: never Patient Tobacco Use Status: Former Tobacco user Cigarette Packs Per Day: 1.5 Cigarettes Per Day: 20 Years Smoked: 40 e-Cigarette/Vaping Use: Never Used Second Hand Smoke Exposure: Yes service: No Current occupational status: retired Current occupational exposures/hazards: No Sexual orientation: Unable to collect Gender identity: Unable to collect Cognitive needs: No Hearing needs: No Vision needs: Yes (wears glasses) Questionnaire Thrive Questionnaire Date Thrive assessed: 07/05/23 RIC-7 AMB Questionnaire RIC-7 Date RIC - 7 assessed: 07/05/23 Source: Developed by Drs. Mejia Bess, Jen Erickson, Patrick Morejon and colleagues, with an educational tete from [employer]. Review of Systems Const Denies chills, Denies fatigue, Denies fever(s), Denies headache(s) and Denies weakness ENT Denies dizziness and Denies headache(s) Card Denies dyspnea Resp Denies cough, Denies dyspnea, Denies wheezing and Denies other (shortness of breath) Musc Denies numbness and Denies tingling Neuro Denies dizziness, Denies headache(s), Denies numbness, Denies tingling and Denies weakness Psych Denies anxiety and Denies depression Endo Denies fatigue Aller/Immun Denies wheezing Physical exam (Primary Care) Vital Signs: Last Vital Signs Pulse 64 12/23/23 09:00 BP 126/68 12/23/23 09:00 Pulse Ox 99 12/23/23 09:00 Oxygen Delivery Method Room Air 12/23/23 09:00 BMI result Body Mass Index 42.0 Tobacco/Smoking Status: Tobacco use Status Tobacco use date assessed 12/23/23 12/23/23 09:01 Patient Tobacco Use Status Former Tobacco user 12/23/23 09:01 e-Cigarette/Vaping Use Never Used 12/23/23 09:01 Thrive Assessment: Date of Thrive Assessment Date Thrive assessed 07/05/23 12/23/23 09:01 Const General: well developed; No acute distress Nutritional Appearance: obese morbidly obese Orientation/consciousness: patient oriented x3 HENMT Head: Yes normocephalic and Yes atraumatic Eyes General: appearance normal, both eyes and all related structures Pupils: Equal, round and reactive pupils present EOM: EOMs intact bilaterally Resp Effort & Inspection: normal respiratory effort Auscultation: clear to auscultation bilaterally Cardio Rate: regular rate Rhythm: regular rhythm Heart sounds: S1 normal heart sound present, S2 normal heart sound present, no gallops, no murmurs and no rubs Neuro General: patient oriented x3 and gait normal Cranial nerves: Yes Equal, round and reactive pupils present Psych Affect: normal affect Assessment and Plan Assessment & Plan (1) Pre-diabetes: Code(s): R73.03 - Prediabetes Plan: Patient?has?been?working?on?weight?loss?and?changing?her?diet She?is?not?due?for?an?A1c?today Encouraged?her?to?continue?lifestyle?changes Will?follow-up?in?a?month (2) Bacteriuria: Code(s): R82.71 - Bacteriuria Plan: Bacteriuria?seen?on?urinalysis.??Patient?is?asymptomatic Increase?hydration (3) Depression with anxiety: Code(s): F41.8 - Other specified anxiety disorders Plan: She?is?on?citalopram. Fairly?stable?though?she?does?still?get?stressed Has?chronic?pain?and?we?discussed?at?last?visit?switching?citalopram?to?duloxetine?which?she?would?like?to?try Will?send?script Follow-up?in?a?month.??Call?sooner?if?any?problems (4) Spasm of muscle of lower back: Code(s): M62.830 - Muscle spasm of back Plan: Low?back?pain Much?improved?while?using?meloxicam Her?account receivable clerk?has?recommended?against?long-term?meloxicam She?will?use?diclofenac?gel Ice/heat She?can?use?naproxen?twice?a?day?for?up?to?3?days?during?a?flare Continue?weight?loss Coding Level of Care Code Est Pt Level 4 (47378) Diagnoses Pre-diabetes R73.03 Bacteriuria R82.71 Depression with anxiety F41.8 Spasm of muscle of lower back M62.830
[2023-12-23 09:00] VITALS: BP 126/68; PULSE 64; O2SAT 99; BMI 42.0
== END 2023-12-23 09:48 | disposition home or self-care (01) ==
PROVIDERS: PCP Family Medicine; Visit Provider Family Medicine
DX: R73.03 Prediabetes (principal); R82.71 Bacteriuria; F41.8 Other specified anxiety disorders; M62.830 Muscle spasm of back
CPT/HCPCS: 99214

== ENCOUNTER 2024-01-27 09:32 | Outpatient (AMB) | payer OTHER, SELFPAY ==
--- NOTE | 2024-01-27 09:53 | A.OFFPC_ITS ---
Vital Signs 01/27/24 09:56 Height 5 ft 6 in Weight 256 lb 4 oz BMI 41.4 BP 120/66 Blood Pressure Location Lt brachial Position Sitting Respiration 16 Pulse 58 Pulse Source Pulse Oximeter Temp 97.3 F Temp Source Tympanic Pulse Oximetry (%) 94 Oxygen Delivery Method Room Air Intake Visit Reasons: f/u anxiety/depression, pre-diabetes Intake Note: mental health check and DM follow up Allergies amoxicillin Allergy (Unknown, Verified 01/27/24 09:54) Hives azithromycin [Zithromax] Allergy (Unknown, Verified 01/27/24 09:54) Hives ciprofloxacin [Cipro] Allergy (Unknown, Verified 01/27/24 09:54) Hives codeine Allergy (Unknown, Verified 01/27/24 09:54) Hives Sulfa (Sulfonamide Antibiotics) Allergy (Unknown, Verified 01/27/24 09:54) Hives epinephrine Adverse Reaction (Severe, Verified 01/27/24 09:54) Anaphylaxis Clindamycin HCl Allergy (Unknown, Uncoded 12/07/23 08:20) Hives Erythromycin Allergy (Unknown, Uncoded 12/23/23 09:00) Hives Medication List - Last Reconciled 01/27/24 by Brian Arguelles MD cetirizine (Zyrtec) 10 mg PO DAILY PRN diclofenac sodium 1% 4 grams topical QID 30 days duloxetine 30 mg PO BID 30 days famotidine 20 mg PO DAILY 90 days levalbuterol tartrate 45 mcg/actuation 2 puffs inhalation Q4H PRN magnesium chloride ER 64 mg PO DAILY meloxicam 15 mg PO DAILY PRN 30 days metoprolol tartrate 25 mg PO BID tiotropium-olodaterol 2.5-2.5 mcg/actuation (Stiolto Respimat) 2 puffs inhalation DAILY Tobacco use date assessed: 12/23/23 Dental Screening Dental Screen Date: 10/21/23 HPI f/u anxiety/depression, pre-diabetes HPI Details 68 y/o female presents to f/u anxiety/de pression, pre-diabetes. Had switched her citalopram to duloxetine for some improved pain control. Last A1c 10/21/23 6.2%. A1c today 01/27/24 is 6.0%. Pt reports she feels well on duloxetine and states she feels her pain control is fine. She has been trying to walk for exercise. [facility] Medical History Paroxysmal atrial flutter LIBERTY on CPAP Obesity Insomnia Hyperglycemia GERD (gastroesophageal reflux disease) Diverticular disease Chronic rhinitis COPD (chronic obstructive pulmonary disease) Depression Anxiety Surgical History History of gynecologic surgery History of hysteroscopy H/O section History of tonsillectomy History of endoscopic gastrointestinal surgery Social History Household Members: Children Housing: House Alcohol intake: never Patient Tobacco Use Status: Former Tobacco user Cigarette Packs Per Day: 1.5 Cigarettes Per Day: 20 Years Smoked: 40 e-Cigarette/Vaping Use: Never Used Second Hand Smoke Exposure: Yes service: No Current occupational status: retired Current occupational exposures/hazards: No Sexual orientation: Unable to collect Gender identity: Unable to collect Cognitive needs: No Hearing needs: No Vision needs: Yes (wears glasses) Questionnaire PHQ-9 Over the last 2 weeks, how often have you been bothered by any of the following problems? 1. Little interest or pleasure in doing things: not at all 2. Feeling down, depressed, or hopeless: not at all 3. Trouble falling or staying asleep, or sleeping too much: more than half the days 4. Feeling tired or having little energy: several days 5. Poor appetite or overeating: not at all 6. Feeling bad about yourself - or that you are a failure or have let yourself or your family down: not at all 7. Trouble concentrating on things, such as reading the newspaper or watching television: not at all 8. Moving or speaking so slowly that other people could have noticed. Or the opposite - being so fidgety or restless that you have been moving around a lot more than usual: not at all 9. Thoughts that you would be better off or of hurting yourself in some way: not at all Total score: 3 Depression Screening Interpretation: Negative Depression Screening Done: Yes 02686 - PHQ-9 Billing: Yes Source: Developed by Drs. Mejia Bess, Jen EricksonPatrick and colleagues, with an educational tete from [employer]. Thrive Questionnaire Date Thrive assessed: 07/05/23 RIC-7 AMB Questionnaire RIC-7 Date RIC - 7 assessed: 01/27/24 Feeling nervous, anxious, or on edge: 0 = Not at all Not being able to stop or control worryin = Several days Worrying too much about different things: 0 = Not at all Trouble relaxin = Not at all Being so restless that it is hard to sit still: 0 = Not at all Becoming easily annoyed or irritable: 0 = Not at all Feeling afraid as if something awful might happen: 0 = Not at all Total RIC-7 score (0-4 normal; 5-9 mild; 10-14 moderate; 15-21 severe): 1 Source: Developed by Drs. Mejia Bess, Jen Erickson, Patrick Morejon and colleagues, with an educational tete from [employer]. RIC-7 Assessment Billing RIC-7 Assessment Tool: RIC-7 Assessment [id number] Review of Systems Const Denies chills, Denies fatigue, Denies fever(s), Denies headache(s) and Denies weakness ENT Denies dizziness and Denies headache(s) Card Denies dyspnea Resp Denies cough, Denies dyspnea, Denies wheezing and Denies other (shortness of breath) Musc Denies numbness and Denies tingling Neuro Denies dizziness, Denies headache(s), Denies numbness, Denies tingling and Denies weakness Psych Denies anxiety and Denies depression Endo Denies fatigue Aller/Immun Denies wheezing Physical exam (Primary Care) Vital Signs: Last Vital Signs Temp 97.3 F 01/27/24 09:56 Pulse 58 01/27/24 09:56 Resp 16 01/27/24 09:56 BP 120/66 01/27/24 09:56 Pulse Ox 94 01/27/24 09:56 Oxygen Delivery Method Room Air 01/27/24 09:56 BMI result Body Mass Index 41.4 Tobacco/Smoking Status: Tobacco use Status Tobacco use date assessed 12/23/23 01/27/24 10:01 Patient Tobacco Use Status Former Tobacco user 01/27/24 10:01 e-Cigarette/Vaping Use Never Used 01/27/24 10:01 PHQ-9: PHQ-9 Score PHQ-9: Total score 3 01/27/24 10:05 Depression Screening Interpretation: Negative Thrive Assessment: Date of Thrive Assessment Date Thrive assessed 07/05/23 01/27/24 10:01 Const General: well developed; No acute distress Nutritional Appearance: well nourished and obese morbidly obese Orientation/consciousness: patient oriented x3 HENNM Head: Yes normocephalic and Yes atraumatic Eyes General: appearance normal, both eyes and all related structures Pupils: Equal, round and reactive pupils present EOM: EOMs intact bilaterally Resp Effort & Inspection: normal respiratory effort Auscultation: clear to auscultation bilaterally Cardio Rate: regular rate Rhythm: regular rhythm Heart sounds: S1 normal heart sound present, S2 normal heart sound present, no gallops, no murmurs and no rubs Neuro General: patient oriented x3 and gait normal Cranial nerves: Yes Equal, round and reactive pupils present Psych Affect: normal affect Assessment and Plan Assessment & Plan (1) Depression with anxiety: Code(s): F41.8 - Other specified anxiety disorders Plan: Doing?well?since?switching?from?citalopram?to?duloxetine Continue?current?medication (2) Pre-diabetes: Code(s): R73.03 - Prediabetes Plan: A1c?improved?from?6.2%?to?6.0%. She?has?lost?almost?20?lb?since?late?May Continue?weight?loss.??Encouraged?regular?exercise Encouraged?diet?low?in?sugars?and?starches (3) Back pain: Code(s): M54.9 - Dorsalgia, unspecified Plan: Much?improved?with?change?from?cit alopram?to?duloxetine?and?also?she?is?using?Tylenol?as?needed And?using?a?strategy?of?her?naproxen?OTC?twice?a?day?for?few?days?when?she?gets? flare-ups?of?pain Now?that?pain?is?essentially?gone,?I?en couraged?her?to?start?walking?regularly,?every?other?day She?had?had?physical?therapy?in?the?past?and?I?encouraged?her?to?start?the?exerc ises?that?she?learned Orders: Orders Vitamin B12 and Folate Today E53.8 - Deficiency of other specified B group vitamins Comprehensive [place]. Panel Fast Today Z00.00 - Encounter for general adult medical examination without abnormal findings Complete Blood Count Auto Diff Today Z00.00 - Encounter for general adult medical examination without abnormal findings Lipid Panel Today Z00.00 - Encounter for general adult medical examination without abnormal findings Microalbumin, Random (w Creat) Today I10 - Essential (primary) hypertension TSH reflex Free T4 Today Z00.00 - Encounter for general adult medical examination without abnormal findings UA and rflx microscopic Today Z00.00 - Encounter for general adult medical examination without abnormal findings Coding Level of Care Code Est Pt Level 3 (68787) Diagnoses Depression with anxiety F41.8 Pre-diabetes R73.03 Back pain M54.9 Additional Codes RIC-7 Assessment Billing - RIC-7 Assessment Tool: RIC-7 Assessment [id number] ([id number])
[2024-01-27 09:56] VITALS: BP 120/66; PULSE 58; RESP 16; TEMP 36.3; O2SAT 94; BMI 41.4
== END 2024-01-27 10:26 | disposition home or self-care (01) ==
PROVIDERS: PCP Family Medicine; Visit Provider Family Medicine
DX: F41.8 Other specified anxiety disorders (principal); R73.03 Prediabetes; M54.9 Dorsalgia, unspecified
CPT/HCPCS: 96127; 99213

== ENCOUNTER 2024-07-25 07:00 | Outpatient (REF) | payer OTHER, SELFPAY ==
--- OUTSIDE RECORDS SUMMARY | 2024-07-25 07:02 | XMS_ITS | Data Portability ---
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 Lab None recorded. Referral None recorded. Procedures None recorded. Surgeries None recorded. Imaging None recorded. Medication Orders ondansetron 4 mg disintegrat ing tablet 2021 022 [id number], [address], [place], [id number], 20:36:36 Zofran ODT 4 mg disintegrat ing tablet 2021 022 [email or web address] Not available 21:58:26 Patient TargetsNo targets recorded. Patient Instructions Encounter Date Encounter Id Patient Instructions Last Modified By Organization Details Last Modified Time 07/28/2021 [id number] Acute Nausea and Vomiting/Diarrhea BASIC INFORMATION Acute nausea and vomiting often start suddenly, worsen quickly, and last a few hours to 24 hours. Nausea and vomiting most often occur together, although they can occur alone. Cases of acute nausea and vomiting are often from gastrointestinal viruses such as norovirus, rotavirus and influenza. Less often it can be caused by toxins released from food that ? goes bad? as well as some types of bacteria and parasites. Diarrhea can also occur. Your nurse practitioner will conduct a careful history to help determine if you have one of the more serious causes. The cause of your nausea and vomiting may be unknown. INSTRUCTIONS Medicines: 1) Anti-nausea: You may have been given a prescription for an anti nausea medicine such as Zofran, Phenergan or Compazine. These can be used every 6-8 hours to help prevent nausea and vomiting. They can make you sleepy, so do not drive after taking them. Be sure to read all of the drug information from the pharmacy. 2) Tylenol: Low grade fever is common with acute nausea and vomiting. You may use Tylenol, per the recommended dosing on the label, to help control fever. If you have liver disease, do not use Tylenol. Ask your TECHNICAL SUPPORT SPECIALIST how to address fever if you are concerned about Tylenol use. 3) Anti-diarrheal medicines: These are available [id number], but in some cases are not recommended and can even worsen some cases of intestinal problems. Ask your TECHNICAL SUPPORT SPECIALIST if you should use them. In children under 12, the only anti-diarrheal that should be considered is Kaopectate. Diet: 1) For the next 12-24 hours, take clear liquids only. No dairy and no caffeinated beverages. After you have not vomited for a complete hour (either with or without the help of the anti-nausea medicine), begin by taking one tablespoon of clear liquid every 15 minutes for one hour. If you are able to tolerate this, you may increase the amount to 2 tablespoons every hour for the next 2 hours. 2) Clear liquids such as gatorade, pedialyte or broth are recommended because of the electrolytes and sugars that will help replenish the losses from vomiting and diarrhea. 3) If you are able to tolerate clear liquids as instructed above, you may begin to take a bland diet. Plain pasta/noodles or toast are suggestions. If you have had diarrhea, bananas, rice and applesauce are suggested as these can help make the stools more solid. Avoid greasy, fatty or fried foods FOLLOW UP You should make an appointment to see your primary care provider within 24 hours or sooner for worsening condition as described below. If you do not have a primary care doctor, you should follow up with one of the PCP suggestions from [facility]. SEEK CARE IMMEDIATELY IF: 1) You are still unable to tolerate any oral intake after 24 hours 2) You have blood in your vomit or stool 3) You develop severe abdominal pain that does not go away after an episode of vomiting or diarrhea 4) You have severe dizziness, heart palpitations or are passing out 5) You develop severe muscle cramps or weakness 6) You have not made urine in over 24 hours If you develop any new or worsening symptoms and need after hours care, please go to nearest ER and/or call 911. If you have additional concerns or develop a change in your condition between 8am-10pm, please call [facility] at [phone] to help navigate your care. [email or web address] Not available 07/28/2021 20:36:40 Reason for Referral None Reported. Medical Equipment None Reported. Medications Name Sig Start Date Stop Date Status Note LastModified by Organization Details LastModified Time prednisone 10 mg tablet TAKE 6 TABLETS BY MOUTH TODAY THEN DECREASE BY 1 TABLET BY MOUTH DAILY 07/28 completed Not Available Not Available Not Available citalopram 40 mg tablet TAKE 1 TABLET BY MOUTH DAILY IN THE MORNING active Not Available Not Available No t Available meloxicam 15 mg tablet TAKE 1 TABLET BY MOUTH EVERY DAY active Not Available Not Available No t Available famotidine 20 mg tablet TAKE 1 TABLET BY MOUTH DAILY AT BEDTIME active Not Available Not Available No t Available Zofran ODT 4 mg disintegrat ing tablet one ODT administe red on scene. Time administe red: 2044 active Not Available Not Available Not Avai lable flecainide 100 mg tablet TAKE 1 TABLET BY MOUTH TWICE DAILY active Not Available Not Available No t Available cefdinir 300 mg capsule TAKE 1 CAPSULE BY MOUTH EVERY 12 HOURS FOR 10 DAYS active Not Available Not Available No t Available metoprolol tartrate 25 mg tablet TAKE 1/2 TABLET BY MOUTH TWICE DAILY active Not Available Not Available No t Available Spiriva Respimat 2.5 mcg/actuati on solution for inhalation INHALE 2 PUFFS BY MOUTH DAILY active Not Available Not Available No t Available Stiolto Respimat 2.5 mcg-2.5 mcg/actuati on solution for inhalation INHALE 2 PUFFS BY MOUTH EVERY 24 HOURS active Not Available Not Available No t Available Vitals Date Recorded Respiratory rate Heart rate Oxygen saturation Oxygen saturation in Arterial blood by Pulse oximetry Body temperature Respiratory rate Systolic blood pressure Diastolic blood pressure Provider Name and Address Organization Details Last Updated DateTime 2 2 /min 87 /min 90 % 90 % 98.8 [degF] 20 /min 106 mm[Hg] 62 mm[Hg] Not Available [facility] 20:44:25 Social History None recorded. Functional Status None recorded. Mental Status None recorded. Family History Nothing Reported. Medical History No medical history recorded. Gynecological HistoryNo gynecological history recorded. Obstetrics History GPAL:G 0 P 0 0 0 0 Past Encounters Encounter ID Performer Location Encounter Start Date Encounter Closed Date Diagnosis/Indication Diagnosis SNOMED-CT Code Diagnosis ICD10 Code Diagnosis Note [id number] EARL Das [facility] [address] [facility] [place]I [place] [id number] 07/28/2021 20:34:55 07/30/2021 10:48:10 Nausea 292003105 R11.0 Proper Personal Protective Equipment (PPE), including {{gloves, eye protection , masks, and gowns, shoe covers lola ves, eye protection and masks* lola ves, eye protection gloves, eye protection , N95 mask, gown, and shoe covers luke gical mask with face-shiel d, gloves, gown and shoe covers luke gical mask with face-shiel d, gloves}} were donned and doffed approprashutosh morataya and all equipment cleaned using approved technique with germicidal disposable wipes prior to and after care of this patient according to [facility] infection prevention protocols. Overview/H istory: 66 yo female with 5 hours of nausea with vomit x4 is seen as her PCP couldnt see her. Exam: pt sitting up on the couch. speaking in full sentences. laughing about taking cola syrup as a kid and buying the same for her son yesterday. in the 40 mins with the patient she drinks water, has no vomiting, recalls stories of growing up, her son. no diaphoresi s no distress. Her abdominal exam is benign DDx considered , but not limited to:food borne illness - most likelyvira l GE - possible, sons illness was limited to 24 so most a food borne illnessflu - no syndrome of symptoms, family member with samelikely GI presentati on yesterday, low suspicionC OVID - no syndrome of symptoms, family member with same GI presentati on yesterday, low suspicion Plan/Discu ssion:-pt nontoxic appearing, NAD, AVSS, BP at pts baseline, 02 at baseline with her COPD-speak ing in full sentences, laughing, sipping at bottled water, eats ice cubes at my behest- my stomach feels better 15min after SL zofran-son sera returned with zofran rx before we left-she will continue with zofran prn, push po intake now that nausea is controlled -her PCP is calling her tomorrow AM-she will call back if symptoms worsen or faily to resolve-sh e will seek emergent medical attn for symptoms including but not limited to: bloody vomitus, fever, abd pain, inability to maintain po intake. Acute vomiting 69052286 R11.10 Health Concerns Section Related Observation LastModified by Organization Detai ls LastModified Time None Recorded Concern Status LastModified by Organization Details LastModified Time None Recorded Advance Directives Directive None Recorded Payers Encounter Date Sequence Insurance Name Policy Number Policy Keyes Covered Member ID Keyes Member ID Guarantor Name 07/28/2021 1 [facility] - DOS PRIOR TO 2022 - DUAL ELIGIBLE (MEDICARE REPLACEMENT/ADV ANTAGE - HMO) Britta Ford [id number] Britta Ford Notes Date Note Type Note Provider Name and Address Organization Details Recorded Time 07/28/2021 text/html -66 yo female new to provider and to -c/o 5 hours of nausea vomiting-her son had 24 hours of the same yesterday and resolved-vomitus is in the toilet and is a bit of phlegm with a very very small amount of food stuffs no bile no blood-no abd pain-(+)BM-(+)FL ATUS-drinking bottled water-eating BRAT diet-HR irreg irreg 86 apical- Monalisa taken Zofran in the hospital before - my blood pressure is always low its from the medicine for my afib EARL Das [address], [place], [address], [place] [facility] 07/28/2021 21:07:16 OBGyn Episode No OBEpisode recorded.
--- OUTSIDE RECORDS SUMMARY | 2024-07-25 07:02 | XMS_ITS | Encounter Summary ---
Author Organization [facility] Address [address] [place] [address] Care Team Providers Care Product Introduction Manager Name Role Phone Brian Arguelles MD Primary Care Provider Reason for Visit * Reason Onset Date Comments Procedure 06/26/2024 ILR Implant 3.21 .25 Encounter Details Date Type Department Care Team (Late st Contact Info) Description 06/26/2024 Telephone [facility] [address] [facility] [address] [place] [address] Jay Constantino MD 300 [facility] [address], [place] [id number] Procedure (ILR Implant 3.21.25) Social History Tobacco Use Types Packs/Day Years Used Date Smoking Tobacco: Former Cigarettes Q uit: 05/01/2011 Smokeless Tobacco: Never Alcohol Use Standard Drinks/Week Comments Not Currently 0 (1 standard drink = 0.6 oz pur e alcohol) Comments Unknown Sex and Gender Information Value Date Recorded Sex Assigned at Not on file Legal Sex Female 10:51 AM EST Gender Identity Not on file Sexual Orientation Not on file documented as of this encounter Progress Notes * Michelle Aragon - 07/04/2024 2:04 PM EST Patient called stating she received her packet. She had questions with her bloodwork questions answered * Michelle Aragon - 06/30/2024 10:04 AM ESTAddended by: MICHELLE ARAGON on: 06/30/2024 10:04 AM Modules accepted: Orders * Michelle Aragon - 06/30/2024 9:29 AM EST Spoke with patient about procedure. Scheduled on 08.11.[address] Constantino at [facility] at 830am Mailing packet to patient today Packet mailed to patient includes instructions with medications, follow-up, lab orders, pre/post procedural care, my direct number and pamphlet for procedure Confirmed address on file Arrival time 8am Bloodwork to be done week of 07.31.24 at any lab of choice (Labs are not fasting) - ATTACHED TO PACKET (3 papers stapled together) Medication instructions are to hold: continue all medications You can take all your regular morning medications with some water These instructions are given verbal and written and understood Patient aware if they do NOT follow these instructions or show up to procedure they will have to berescheduled to next available which could take up to 6 to 10 weeks. Patient will have to be fasting from midnight night before procedure. Patient is to report to [facility] to the 3rd floor - Near Patient Registration Patient agreed to all instructions and date, time and location above via phone Case Request sent * Michelle Aragon - 06/26/2024 12:59 PM EST Attempted to contact patient, but there was no answer. Left a voicemail providing my direct number and requested a call back. Awaiting response. documented in this encounter Plan of Treatment Upcoming Encounters Date Type Department Care Team (Latest Contact Info) Description 08/11/2024 8:30 AM EDT Hospital Encounter [facility] Cardiac Assessment Nurse [address] [place] [address] Jya Constantino MD [address] [id number] Paroxysmal atrial fibrillation (CMS/HCC) 08/11/2024 8:30 AM EDT - 08/11/2024 9:00 AM EDT Surgery [facility] Cardiac Assessment Nurse [address] [place] [address] Jay Constantino MD [address] [address] Loop recorder insertion [[id number] (CPT??)] Scheduled Orders Name Type Priority Associated Diagnoses Orde r Schedule CBC and differential Lab Routine Paroxysmal atrial fibrillation (CMS/HCC) 1 Occurrences starting 06/30/2024 until 06/30/2025 Basic metabolic panel Lab Routine Paroxysmal atrial fibrillation (CMS/HCC) 1 Occurrences starting 06/30/2024 until 06/30/2025 Prothrombin time with INR Lab Routine Paroxysmal atrial fibrillation (CMS/HCC) 1 Occurrences starting 06/30/2024 until 06/30/2025 documented as of this encounter Visit Diagnoses Diagnosis Atrial fibrillation (CMS/HCC)- Primary Atrial fibrillation Paroxysmal atrial fibrillation (CMS/HCC) Atrial fibrillation Paroxysmal atrial fibrillation (CMS/HCC)- Primary Atrial fibrillation Paroxysmal atrial fibrillation (CMS/HCC) Atrial fibrillation documented in this encounter Care Teams Product Introduction Manager Relationship Specialty Start Date End Date Brian Arguelles MD [address] [place] [address] PCP - General 06/01/23 documented as of this encounter
[2024-07-25 11:19] LABS: MANUAL DIFF FLAG NO
[2024-07-25 11:20] LABS: Appearance Urine Clear; Color Urine Yellow; Glucose Urine UA Negative (Negative); Leukocyte Esterase Urine Moderate (2+) (Negative); Nitrite Urine Negative (Negative); PH 5.5 (5.0-9.0); UMIC TRIGGER UA YES; Urine Blood Negative (Negative); Urine Ketones Negative (Negative); Urine Protein Negative (Neg-Trace)
[2024-07-25 11:24] LABS: Bacteria Urine 2+ (None Seen); Hyaline Casts Urine 0-2 /LPF (0-2); RBC Urine 0-2 /HPF (0-2)
[2024-07-25 11:37] LABS: Basophils Percent Auto 0.8 % (0-2); Eosinophils Absolute Auto 0.2 X10*3/uL (0.0-0.4); Eosinophils Percent Auto 4.4 % (0-4); Hematocrit 44.9 % (37.0-47.0); Hemoglobin 14.8 g/dl (12.0-16.0); Imm Gran Abs Auto 0.03 X10*3/uL (0.00-0.03); Imm Gran Pct Auto 0.6 % (0.0-0.4); Lymphocytes Percent Auto 18.2 % (20-40); Mean Corpuscular Hemoglobin 29.1 pg (27.0-33.0); Mean Corpuscular Volume 88.4 fL (80.0-98.0); Mean Platelet Volume 12.1 fL (9.4-12.3); Monocytes Absolute Auto 0.5 X10*3/uL (0.1-1.2); Monocytes Percent Auto 8.5 % (2-11); Neutrophils Absolute Auto 3.6 x10*3/uL (2.0-8.3); Neutrophils Percent Auto 67.5 % (45-73); Platelet Count 263 X10*3/uL (160-400); Red Blood Count 5.08 X10*6/uL (4.20-5.50); Red Cell Distribution Width 12.8 % (11.0-16.0); White Blood Count 5.3 X10*3/uL (4.8-10.8)
[2024-07-25 11:38] LABS: Prothrombin Time 11.7 SEC (10.9-12.4)
[2024-07-25 11:42] LABS: Basophils Percent Auto 0.8 % (0-2); Eosinophils Absolute Auto 0.2 X10*3/uL (0.0-0.4); Eosinophils Percent Auto 4.4 % (0-4); Hematocrit 44.9 % (37.0-47.0); Hemoglobin 14.8 g/dl (12.0-16.0); Imm Gran Abs Auto 0.03 X10*3/uL (0.00-0.03); Imm Gran Pct Auto 0.6 % (0.0-0.4); Lymphocytes Percent Auto 18.2 % (20-40); Mean Corpuscular Hemoglobin 29.1 pg (27.0-33.0); Mean Corpuscular Volume 88.4 fL (80.0-98.0); Mean Platelet Volume 12.1 fL (9.4-12.3); Monocytes Absolute Auto 0.5 X10*3/uL (0.1-1.2); Monocytes Percent Auto 8.5 % (2-11); Neutrophils Absolute Auto 3.6 x10*3/uL (2.0-8.3); Neutrophils Percent Auto 67.5 % (45-73); Platelet Count 263 X10*3/uL (160-400); Red Blood Count 5.08 X10*6/uL (4.20-5.50); Red Cell Distribution Width 12.8 % (11.0-16.0); White Blood Count 5.3 X10*3/uL (4.8-10.8)
[2024-07-25 12:06] LABS: Alanine Aminotransferase 13 U/L (0-31); Albumin Level 4.1 g/dL (3.5-5.0); Alkaline Phosphatase 61 U/L (39-117); Anion Gap 11 (12-20); Aspartate Amino Transferase 26 U/L (5-31); Bilirubin Total 0.5 mg/dL (0.0-1.0); Blood Urea Nitrogen 16 mg/dL (9-16); Calcium 9.1 mg/dL (8.4-10.2); Carbon Dioxide 24 mmol/L (22-29); Chloride 108 mmol/L (96-108); Cholesterol 148 mg/dL (<200); Estimated Glomerular Filt Rate > 60; Glucose Fasting 122 mg/dL (60-99); HDL Cholesterol 31 mg/dL (>40); LDL Cholesterol Calculated 93 mg/dL (<100); Potassium 4.3 mmol/L (3.3-5.1); Sodium 139 mmol/L (135-145); Total Protein 8.4 g/dL (6.5-8.0); Triglycerides 121 mg/dL (<150)
[2024-07-25 12:10] LABS: TSH reflex Free T4 1.87 uIU/mL (0.32-4.0)
[2024-07-25 12:14] LABS: Creatinine Urine 106.24 mg/dL; Microalbum/Creatinine Ratio Ur 8.4 ug/mg cr (<30)
[2024-07-25 12:25] LABS: Folate 10.1 ng/mL (> or = 4.0); Vitamin B12 381 pg/mL (200-900)
== END 2024-07-25 07:01 | disposition home or self-care (01) ==
LOC: HO.WFDLDS 07:00
PROVIDERS: Internal Medicine Cardiovascular Disease; Visit Provider Family Medicine
DX: I48.0 Paroxysmal atrial fibrillation (principal); Z00.00 Encounter for general adult medical examination without abnormal findings; I10 Essential (primary) hypertension; E53.8 Deficiency of other specified B group vitamins
CPT/HCPCS: 36415; 80053; 80061; 81001; 82043; 82570; 82607; 82746; 84443; 85025; 85610

== ENCOUNTER 2024-07-31 11:50 | Outpatient (AMB) | payer OTHER, SELFPAY ==
--- NOTE | 2024-07-31 11:57 | A.OFFPC_ITS ---
Vital Signs 07/31/24 12:09 Height 5 ft 6 in Weight 265 lb BMI 42.8 BP 128/76 Blood Pressure Location Rt brachial Position Sitting Pulse 96 Pulse Source Pulse Oximeter Pulse Oximetry (%) 93 Oxygen Delivery Method Room Air Intake Visit Reasons: CPE with f/u labs and health maint. 30 mins Allergies amoxicillin Allergy (Unknown, Verified 07/31/24 11:59) Hives azithromycin [Zithromax] Allergy (Unknown, Verified 07/31/24 11:59) Hives ciprofloxacin [Cipro] Allergy (Unknown, Verified 07/31/24 11:59) Hives codeine Allergy (Unknown, Verified 07/31/24 11:59) Hives Sulfa (Sulfonamide Antibiotics) Allergy (Unknown, Verified 07/31/24 11:59) Hives epinephrine Adverse Reaction (Severe, Verified 07/31/24 11:59) Anaphylaxis Clindamycin HCl Allergy (Unknown, Uncoded 07/31/24 11:59) Hives Erythromycin Allergy (Unknown, Uncoded 07/31/24 11:59) Hives Tobacco use date assessed: 07/31/24 Fall risk assessment: No Falls in past year Last assessed Fall Risk: 07/31/24 Dental Screening Dental Screen Date: 07/31/24 Did you have a dental visit in the last 12 months?: Yes Did you have a dental problem in the last 6 months where you did not have access to dental care?: No Was dental information given to patient?: Patient has dentist HPI HPI Comments History of Present Illness Details This is a 69-year-old female with a past medical history of COPD, paroxysmal atrial fibrillation, prediabetes, depression with anxiety and chronic pain presenting for a physical exam. Her primary care provider is Dr. Arguelles. The patient says she has not been doing well. She endorses chronic pain. She is followed by [facility] for osteoarthritis in her knees. She receives injections. She takes Tylenol 1000 mg 2 to 3 times a day, but she does not find it helpful. She was advised by her visual merchandise manager not to use NSAIDs. In the past she had used meloxicam short term. Patient said she also has osteoarthritis in her other joints and lower back pain. She gets muscle spasms in her lower back. She is currently treated with duloxetine 30 mg twice a day. This was switched from citalopram. She does not feel that it is helping. Her pain level every day is a 7 or 8/10. She says that she has been through physical therapy. She is not interested in a pain management referral because she has widespread pain and does not think procedures will be particularly helpful. She is interested in medication management. She also recognizes the effect that being overweight has on her musculoskeletal pains as well as her blood sugar as she is prediabetic. During the past year she followed a low carbohydrate/low sugar diet, but she has not been able to lose a significant amount of weight, and she has gained weight since January. Her BMI today is 42.8. Her hemoglobin A1c today is 6%. Her LDL cholesterol is 93, triglycerides 121. We discussed HDL cholesterol is lower than goal, and this has been a chronic issue for her. Her thyroid function is normal. She is interested in an injection for weight loss. Paroxysmal atrial fibrillation-the patient denies recent episodes of palpitations, chest pain, syncope. She is also a bit upset about this because her visual merchandise manager wanted to do an implantable loop recorder, but she does not want to have something implanted in her body for years. Instead they are getting a 2 week rubber tire and tubes supervisor. Patient says if this does show episodes of atrial fibrillation they are going to recommend she starts anticoagulation which she is also anxious about. COPD is followed by pulmonology. There were moderate leuks on her urinalysis, but she denies UTI symptoms. She has an annual skin exam is scheduled this year. She declines bone density exam. Patient says mammogram is scheduled in August this year. Her nut grader is Maureen Coronado. She also reports having Cologuard within the past 3 years. ROS: Constitutional: No unexplained weight loss, fever, chills or night sweats. Eyes: No vision changes, blurry vision, double vision, eye pain, eye redness, eye discharge. ENT: No hearing loss, sneezing, congestion, runny nose or sore throat. Respiratory: No shortness of breath, cough or sputum production. Cardiovascular: No chest pain, chest pressure or chest discomfort. No palpitations or pedal edema. Gastrointestinal: No anorexia, nausea, vomiting or diarrhea. No abdominal pain or blood in stool. Genitourinary: No dysuria, hematuria, urinary frequency. Neurologic: No headache, dizziness, syncope Musculoskeletal: Chronic back and knee pain Hematologic/Lymphatics: No bleeding or bruising. No painful lymph nodes. Skin: No rash or itching. Endocrine: No cold or heat intolerance. No polyuria or polydipsia. Psychiatric: +depression. No SI or HI. Physical exam: Constitutional: Alert, in no distress. Head: Normocephalic. Eyes: Pupils are equal, round and reactive to light. Extraocular muscles intact. Ear, Nose and Throat: Canals clear. TMs normal. Normal nasal mucosa. No nasal discharge. No oral lesions. Neck: Supple, Full range of motion. No lymphadenopathy. No palpable thyroid masses. Respiratory: Clear to auscultation. Cardiovascular: S1 S2 regular. No murmurs. No carotid bruits. Gastrointestinal: Abdomen soft, non-tender, non-distended. Normal bowel sounds. No palpable masses. Genitourinary: No costovertebral angle tenderness. Neurologic: No focal neurological deficits. Symmetric patellar reflexes. Moves all extremities spontaneously. Sensation intact bilaterally. Skin: No rashes Musculoskeletal: No gross deformities. Normal range of motion. Extremities: Warm and well perfused. No clubbing, cyanosis or edema. 3+ peripheral pulses bilaterally. Psychiatric: Normal mood and affect [facility] Medical History (Updated 08/01/24 @ 08:40 by EARL Yousif) Routine physical examination Chronic pain Paroxysmal atrial flutter LIBERTY on CPAP Obesity Insomnia Hyperglycemia GERD (gastroesophageal reflux disease) Diverticular disease Chronic rhinitis COPD (chronic obstructive pulmonary disease) Depression Anxiety Surgical History History of gynecologic surgery History of hysteroscopy H/O section History of tonsillectomy History of endoscopic gastrointestinal surgery Social History Household Members: Children Housing: House Alcohol intake: never Patient Tobacco Use Status: Former Tobacco user Cigarette Packs Per Day: 1.5 Cigarettes Per Day: 20 Years Smoked: 40 e-Cigarette/Vaping Use: Never Used Second Hand Smoke Exposure: Yes service: No Current occupational status: retired Current occupational exposures/hazards: No Sexual orientation: Unable to collect Gender identity: Unable to collect Cognitive needs: No Hearing needs: No Vision needs: Yes (wears glasses) Questionnaire PHQ-9 Over the last 2 weeks, how often have you been bothered by any of the following problems? 1. Little interest or pleasure in doing things: nearly every day 2. Feeling down, depressed, or hopeless: nearly every day 3. Trouble falling or staying asleep, or sleeping too much: nearly every day 4. Feeling tired or having little energy: nearly every day 5. Poor appetite or overeating: nearly every day 6. Feeling bad about yourself - or that you are a failure or have let yourself or your family down: not at all 7. Trouble concentrating on things, such as reading the newspaper or watching television: not at all 8. Moving or speaking so slowly that other people could have noticed. Or the opposite - being so fidgety or restless that you have been moving around a lot more than usual: not at all 9. Thoughts that you would be better off or of hurting yourself in some way: not at all Total score: 15 Depression Screening Interpretation: Positive Depression Screening Follow-up: Existing condition and In treatment Depression Screening Done: Yes 46290 - PHQ-9 Billing: Yes Source: Developed by Drs. Mejia Bess, Jen Erickson, Patrick Morejon and colleagues, with an educational tete from [employer]. Thrive Questionnaire Date Thrive assessed: 07/31/24 I am a: Patient What is your living situation today?: I have a steady place to live Within the past 12 months, did the food you bought not last and you didn't have the money to get more?: Often true Within the past 12 months, did you worry whether your food would run out before you got money to buy more?: Often true Do you have trouble paying for medicines?: No Do you have trouble getting transportation to medical appointments?: No Do you have trouble paying your heating and electricity bill?: No Do you have trouble taking care of your child, family member or friend?: No Do you have trouble with day-to-day activities such as bathing, preparing meals, shopping, managing finances, etc.?: No Are you currently unemployed and looking for a job?: No Are you interested in more education?: No Please select the resources that you would like help with: None Currently or been in a relationship where the following occur: No concerns reported THRIVE Score: 2 AUDIT C Alcohol Use Questionnaire (AUDIT-C) 1. How often do you have a drink containing alcohol?: Never 3. How often do you have six or more drinks on one occasion?: Never Total Score: 0 RIC-7 AMB Questionnaire RIC-7 Date RIC - 7 assessed: 07/31/24 Feeling nervous, anxious, or on edge: 3 = Nearly every day Not being able to stop or control worryin = Nearly every day Worrying too much about different things: 3 = Nearly every day Trouble relaxin = Not at all Being so restless that it is hard to sit still: 0 = Not at all Becoming easily annoyed or irritable: 3 = Nearly every day Feeling afraid as if something awful might happen: 3 = Nearly every day Total RIC-7 score (0-4 normal; 5-9 mild; 10-14 moderate; 15-21 severe): 15 Source: Developed by Drs. Mejia Bess, Jen Erickson, Patrick Morejon and colleagues, with an educational tete from [employer]. RIC-7 Assessment Billing RIC-7 Assessment Tool: RIC-7 Assessment 42787 Physical exam (Primary Care) Vital Signs: Last Vital Signs Pulse 96 07/31/24 12:09 BP 128/76 07/31/24 12:09 Pulse Ox 93 07/31/24 12:09 Oxygen Delivery Method Room Air 07/31/24 12:09 BMI result Body Mass Index 42.8 Tobacco/Smoking Status: Tobacco use Status Tobacco use date assessed 07/31/24 07/31/24 12:03 Patient Tobacco Use Status Former Tobacco user 07/31/24 12:03 e-Cigarette/Vaping Use Never Used 07/31/24 12:03 PHQ-9: PHQ-9 Score PHQ-9: Total score 15 07/31/24 12:36 Depression Screening Interpretation: Positive Depression Screening Follow-up: Existing condition and In treatment Thrive Assessment: Date of Thrive Assessment Date Thrive assessed 07/31/24 07/31/24 12:03 Currently or been in a relationship where the following occur: No concerns reported Results AMB Hemoglobin A1c AMB Hemoglobin A1c 6.0 % Last Edit by Alisha Salgado CMA on 07/31/24 13:21 Results Reviewed Results Reviewed: Laboratory Last Values Hgb A1c (Clinic) 6.0 % (4.0-6.0) 07/31/24 13:12 Coding Level of Care Code Est Pt Level 3 (58485) Est Pt Prev Care >65y(93030) Diagnoses Routine physical examination Z00.00 Chronic pain G89.29 Pre-diabetes R73.03 Paroxysmal atrial fibrillation I48.0 LIBERTY on CPAP G47.33 COPD (chronic obstructive pulmonary disease) J44.9 Depression with anxiety F41.8 Additional Codes RIC-7 Assessment Billing - RIC-7 Assessment Tool: RIC-7 Assessment 11625 ([id number]) PHQ-9 - 75970 - PHQ-9 Billing: Yes ([id number]) Assessment & Plan Assessment & Plan (1) Routine physical examination: Code(s): Z00.00 - Encounter for general adult medical examination without abnormal findings Category: Medical Plan: Patient is seen today for a routine physical. As part of this visit we reviewed the following issues, which are considered and essential part of preventative health in this age group: - Breast Cancer screening - Annual Electrophysiology Technologist exam - Screening for colon cancer - I will review her chart to confirm the date of the last Cologuard test. - Blood pressure screening - Cholesterol screening - Osteoporosis prevention including calcium/vitamin D intake, weight bearing exercise & smoking cessation - Nutritional and exercise counseling - Recommendations about immunizations - Recommendation of an eye exam (2) Chronic pain: Code(s): G89.29 - Other chronic pain Category: Medical Plan: Patient acknowledges exacerbating factors including depression, obesity and osteoarthritis. She is followed by [facility]. Declines referral to pain management. She was hoping to discuss this with her primary care provider today, and she does not want to make medication adjustments before speaking with Dr. Arguelles. We will arrange a follow up with her primary care provider. (3) Pre-diabetes: Code(s): R73.03 - Prediabetes Category: Medical Plan: Reviewed risks of diabetes with the patient. I think she is a good candidate for a GLP 1. She has a family member with a history of thyroid cancer, and she is going to ask them what type of thyroid cancer. If it is medullary thyroid cancer GLP 1 would not be prescribed. She denies other contraindications to the medication, and the side effects and titration schedule were reviewed with her. (4) Paroxysmal atrial fibrillation: Code(s): I48.0 - Paroxysmal atrial fibrillation Category: Medical Plan: Continue management per Cardiology. Rate controlled on beta-ruperto. No recent episodes. She has declined implantable loop recorder and is having a 2 week Holter monitor. (5) LIBERTY on CPAP: Code(s): G47.33 - Obstructive sleep apnea (adult) (pediatric) Category: Medical Plan: Continue CPAP. Continue efforts at weight loss and avoidance of alcohol. (6) COPD (chronic obstructive pulmonary disease): Code(s): J44.9 - Chronic obstructive pulmonary disease, unspecified Category: Medical Plan: Managed by pulmonology. (7) Depression with anxiety: Code(s): F41.8 - Other specified anxiety disorders Category: Medical Plan: As above -patient did not want to adjust medications without speaking to her primary care provider. Plan Follow up with Dr. Arguelles to discuss chronic pain. Orders: Orders AMB Hemoglobin A1c 07/31/24 Z13.9 - Encounter for screening, unspecified
[2024-07-31 12:09] VITALS: BP 128/76; PULSE 96; O2SAT 93; BMI 42.8
--- OUTSIDE RECORDS SUMMARY | 2024-07-31 13:32 | XMS_ITS | Clinical Summary ---
Author Organization [address] [place] [address] Address [address] [place] [address] Phone Care Team Providers Care Waist Pleater Name Role Phone Brian Arguelles MD Primary Care Provider [phone] Allergies Active Allergy Reactions Criticality Noted Date Comments Amoxicillin 04/16/2024 Ciprofloxacin 04/16/2024 Codeine 04/16/2024 Epinephrine 12/18/2021 Sulfa (Sulfonamide Antibiotics) 03/25 Yellow Dye 04/16/2024 Medications acetaminophen (TYLENOL) 500 mg tablet Take 2 tablets (1,000 mg total) by mouth 3 (three) times a day if needed. Active cetirizine (ZyrTEC) 10 mg tablet Take 1 tablet (10 mg total) by mouth 1 (one) time each day. Active famotidine (PEPCID) 20 mg tablet Take 1 tablet (20 mg total) by mouth 2 (two) times a day. Active levalbuterol (XOPENEX HFA) 45 mcg/actuation inhaler Active magnesium chloride (Slow-Mag) 71.5 mg tablet,delayed release (DR/EC) Active tiotropium (SPIRIVA RESPIMAT) 2.5 mcg/actuation inhalation spray Inhale 2 puffs by mouth 1 (one) time each day. Active DULoxetine (CYMBALTA) [address] capsule Take 1 capsule (30 mg total) by mouth 2 (two) times a day. Do not crush or chew. Active metoprolol tartrate (LOPRESSOR) 25 mg tablet TAKE 1 TABLET BY MOUTH TWICE DAILY 180 tablet 3 5 Active metoprolol tartrate (LOPRESSOR) 25 mg tablet TAKE 1 TABLET BY MOUTH TWICE DAILY 180 tablet 3 4 07/20/19 25 Discontinued Active Problems Problem Noted Date Diagnosed Date Atrial fibrillation 05/03/2020 Overview (04/16/2024): Atrial fibrillation Palpitations 05/03/2020 Overview (04/16/2024): Palpitations Encounters Date Type Department Care Team Description 07/26/2024 Telephone [facility] Cardiology [facility] - [address] [place] [address] Errol Russo MA ROCT Enrollment (Enrolling patient for 14 day ROCT) 06/26/2024 Telephone [facility] - [address] [place] [address] Jay Constantino MD Procedure (ILR Implant 3.21.25) 06/16/2024 Telephone [facility] Cardiology [address] [place] [address] Michel Peng NP 06/15/2024 Telephone [facility] - [address] [place] [address] Kena Cast NP pt returning ROCT monitor early 06/14/2024 7:00 AM EST Ancillary Procedure [facility] - [address] [place] [address] Atrial fibrillation, unspecified type (CMS/HCC) 06/08/2024 Telephone [facility] - [address] [place] [address] Jay Constantino MD ROCT - 51133 (Ok to Book); ROCT Enrollment (Enrolling patient for 14 day ROCT) 06/07/2024 8:40 AM EST Office Visit [facility] [address] [address] Kena Cast NP Atrial fibrillation, unspecified type (CMS/HCC) (Primary Dx); Palpitations from Last 3 Months Family History Medical History Relation Name Comments Diabetes Father Hypertension Father Hyperlipidemia Mother Hypertension Mother Relation Name Status Comments Father Mother Social History Tobacco Use Types Packs/Day Years [...] on file Sexual Orientation Not on file Obstetrics History Last Filed Vital Signs Vital Sign Reading Time Taken Comments Blood Pressure 104/66 06/07/2024 8:38 AM EST Pulse 61 06/07/2024 8:38 AM EST Temperature - - Respiratory Rate - - Oxygen Saturation 90% 06/07/2024 8:38 AM EST Inhaled Oxygen Concentration - - Weight 121 kg (266 lb) 06/07/2024 8:38 AM EST Height 167.6 cm (5' 6 ) 06/01/2023 10:35 AM EST Body Mass Index 42.93 06/01/2023 10:35 AM EST Plan of Treatment Upcoming Encounters Date Type Department Care Team (Latest Contact Info) Description 08/11/2024 8:30 AM EDT Hospital Encounter [facility] Cardiac Local Tanker Truck Driver [address] [place] [id number] Jay Constantino MD [address] [address] Paroxysmal atrial fibrillation (CMS/HCC) 08/11/2024 8:30 AM EDT - 08/11/2024 9:00 AM EDT Surgery [facility] Cardiac Local Tanker Truck Driver [address] [place] [id number] Jay Constantino MD [address] [place] [id number] Loop recorder insertion [60471 (CPT??)] Health Maintenance Due Date Last Done Comments Breast Cancer Screening 1955 Zoster Vaccines (2 of 2) 04/23/2014 02/26/2014 Cholesterol Screening (Lipid Panel) 05/02/2022 Colorectal Cancer Screening: Colonoscopy 05/02/2022 Depression Screening 05/02/2022 Falls Risk Assessment 05/02/2022 Hepatitis C Screening 05/02/2022 Medicare Annual Wellness Visit 05/02/2022 Osteoporosis Screening (Bone Density Screening) 05/02/2022 Social Influencers of Health Screening 05/02/2022 Influenza Vaccine (#1) 2024 3, 02/04/2022, 02/07/2021, Additional history exists DTaP,Tdap,and Td Vaccines (3 - Td or Tdap) 01/22/2027 01/22/2017, 07/10/2008 MMR Vaccines Aged Out 02/10/2010 No longer eligi ble based on patient's age to complete this topic Pneumococcal Vaccine: 50+ Years Completed 09/23/2022, 08/17/2014, 06/30/2011 RSV Immunization Patients 60+ Years Old Completed 02/02/2023 COVID-19 Vaccine Completed 02/23/2024, , 02/12/2023, Additional history exists HIB Vaccines Aged Out No longer eligi ble based on patient's age to complete this topic HPV Vaccines Aged Out No longer eligi ble based on patient's age to complete this topic Hepatitis A Vaccines Aged Out No long er eligible based on patient's age to complete this topic Hepatitis B Vaccines Aged Out No long er eligible based on patient's age to complete this topic IPV Vaccines Aged Out No longer eligi ble based on patient's age to complete this topic Meningococcal ACWY Vaccine Aged Out N o longer eligible based on patient's age to complete this topic Meningococcal B Vacine Aged Out No lo nger eligible based on patient's age to complete this topic RSV Immunization Patients Under 20 months Aged Out No longer eligible based on patient's age to complete this topic Varicella Vaccines Aged Out No longer eligible based on patient's age to complete this topic Procedures Procedure Name Priority Date/Time Associated Diagnosis Comments CARDIAC ASSISTANT PRINTER FLOOR COVERING W/ CONNECTION (MCOT) Routine 06/14/2024 9:40 AM EST Atrial fibrillation, unspecified type (CMS/HCC) ECG 12-LEAD Routine 06/07/2024 9:34 AM EST Atrial fibrillation, unspecified type (CMS/HCC) Palpitations from Last 3 Months Results * CARDIAC ASSISTANT PRINTER FLOOR COVERING W/ CONNECTION (MCOT) (06/14/2024 9:40 AM EST) Anatomical Region Laterality Modality Cardiac Diagnost ic Impressions 06/22/2024 1:29 PM EST Normal sinus rhythm with an average heart rate of 70 bpm. ?? Patient symptoms did not correspond to an arrhythmia. Narrative 06/22/2024 1:29 PM EST ?Normal Holter monitor [facility]PART[facility] [address] [place] [address], [address] [address] TEL: FAX: TYPE OF TEST 14 day ROCT monitor. DATES OF MONITORIN06/14/24 (Monitor worn only one day due to electrodes not staying on and skin irritation) REQUESTING PHYSICIAN: Kena Cast NP PRIMARY CARE PROVIDER: Brian Arguelles MD INDICATION: Atrial Fibrillation PRELIMINARY FINDINGS FROM FIRST CALL MEDICAL: 1. The predominant rhythm was sinus. 2. The average heart rate was 70 bpm, minimum heart rate was 57 bpm, maximum heart rate was 98 bpm. 3. There were 1 patient triggered symptomatic events. Kena Cast NP CV CARDIAC SERVICES PROCEDUR ES Final Result * ECG 12 lead (06/07/2024 9:34 AM EST) Ventricular Rate ECG 61 BPM GEMUSE Atrial Rate 61 BPM GEMUSE P-R Interval 172 ms GEMUSE QRS Duration 90 ms GEMUSE Q-T Interval 432 ms GEMUSE QTc 434 ms GEMUSE P Wave [place] 72 degrees GEMUSE R [place] 69 degrees GEMUSE T [place] 66 degrees GEMUSE ECG Interpretation Normal sinus rhythm Normal ECG No previous ECGs available Confirmed by Gene CONSTANTINO JOHN ([id number]) on 06/18/2024 10:21:13 AM GEMUSE 06/07/2024 8:46 AM EST 06/18/2024 10:21 AM EST us Kena Cast TREE CARE FOREMAN ECG ORDERABLES Edited Resul t - Final GEMUSE from Last 3 Months Insurance [employer] MEDICARE Member Subscriber Plan / Payer (Ef fective 2022-Present) Name:Britta Ford Relation to Subscriber:Self Name:Britta Ford Payer ID:[id number] Group ID:[id number] Type:Not on file Address: [place] [address] [address] [address] Care Teams Waist Pleater Relationship Specialty Start Date End Date Brian Arguelles MD [address] [place] [address] Dr Nils [place] PCP - General 06/01/23
--- OUTSIDE RECORDS SUMMARY | 2024-07-31 13:32 | XMS_ITS | Data Portability ---
Author Organization [facility], [facility] Address [address] [place] [address] Care Team Providers Care Bedspring Assembler Name Role Phone CHAYO KEMP Primary Care Provider Assessment No assessment recorded. Plan of Treatment Reminders Order Date Submit Date Provider Last Modified By Organization Details Last Modified Time Details Appointments None record ed. Lab None record ed. Referral None record ed. Procedures None record ed. Surgeries None record ed. Imaging XR, hand, 3 or more view - rm 117 lt hand 024 03/25/20 24 [email or web address] [facility] Office, [address], [facility] [address], [place], [address], 4 11:19:03 Medication Orders None record ed. Patient TargetsNo targets recorded. Patient InstructionsNo instructions recorded. Reason for Referral None Reported. Results Created Date Observation Date Name Description Value Unit Range Abnormal Flag Note LastModifiedBy Organization Detail LastModifiedTime 01/22/20 24 12/16/2018 imagi ng/di agnos tic resul t No observ ation record ed. [email or web address] Not Available 12/24 01:12:39 01/22/20 24 05/30/2022 imagi ng/di agnos tic resul t No observ ation record ed. [email or web address] Not Available 12/24 01:13:47 01/22/20 24 07/06/2021 imagi ng/di agnos tic resul t No observ ation record ed. [email or web address] Not Available 12/24 01:14:05 03/25/20 24 03/25/2024 XR, hand, 3 or more view http:/ [email or web address] ?Encry pted=s hAaTro YD8dLq bEUv6g %2BXZw aYqtaq 0bqfl% 2Fg9IQ a4ajBk vP9nXo QUaueC m3YtLR FvZlgJ JJ8mAn HZtai3 8z7254 AC0Kqa HmNU6C jKiQtr MwF INTERFACE [facility] [address] [facility] [address], [place], [address], 03/25/2024 08:28:53 03/25/20 24 03/25/2024 XR, hand, 3 or more view [email or web address]:/ [email or web address] ?Encry pted=s hAaTro YD8dLq bEUv6g %2BXZw aYqtaq 0bqfl% 2Fg9IQ a4ajBk vP9nXo QUaueC m3YtLR FvZlgJ JJ8mAn HZtai3 6k1257 AC0Kqa HmNU6C jKiQtr MwF INTERFACE [facility] [address] [facility] [address], [place], [address], 03/25/2024 08:28:55 Result Notes None recorded. Problems Name Problem SNOMED Code Status Onset Date Resolution Date Notes Provider Name and Address Organization Details Recorded Time No complaint s 503982701 Active Status: 'I'; Not Available [facility] 4 09:20:40 Sprain of medial collatera l ligament of knee 85779877 Active 2017 Problem Code: S83.412A ; Problem Code Type: ICD-10; Status: 'A'; Not Available [facility] 4 11:42:35 Idiopathi c osteoarth ritis 234893895 Active 2017 Problem Code: M17.0; Problem Code Type: ICD-10; Status: 'A'; Not Available [facility] 4 11:42:35 Arthralgi a of the ankle and/or foot 323953581 Active 2019 Problem Code: M25.571; Problem Code Type: ICD-10; Status: 'A'; Not Available [facility] 4 11:42:35 Pain of left knee joint 780071594897 107 Active 2016 Problem Code: M25.562; Problem Code Type: ICD-10; Status: 'A'; Not Available [facility] 4 11:42:35 Derangeme nt of medial meniscus of left knee 232598595641 108 Active 2017 Problem Code: M23.332; Problem Code Type: ICD-10; Status: 'A'; Not Available [facility] 4 11:42:36 Problem Notes None recorded. Procedures Surgical History Date Name Laterality Status Provider Name and Address Organization Details Recorded Time 4 Wrist Joint Kenalog Injection, L/R completed Chandrakant Rowell PA-C [address], [place], [address], [facility] 03/25/2024 09:04:57 4 Euflexxa Knee Injection Yobani completed Sean Odonnell PA-C [address], [place], [address], [facility] 08/31/2023 13:09:07 4 Euflexxa Knee Injection Yobani completed Sean Odonnell PA-C [address], [place], [address], [facility] 08/24/2023 13:08:35 4 Euflexxa Knee Injection Yobani completed Sean Odonnell PA-C [address], [place], [address], [facility] 08/17/2023 13:17:06 8 Other completed Donavan Gamble [facility] 07/25/2024 12:58:08 6 Other completed Donavan Gamble [place] [facility] 07/25/2024 12:58:08 Imaging Results Imaging Date Name Status LastModified by [facility] Details LastModified Time 12/16/2018 imaging/diag nostic result completed Information not available 01/22/2024 01:12:39 05/30/2022 imaging/diag nostic result completed Information not available 01/22/2024 01:13:47 07/06/2021 imaging/diag nostic result completed Information not available 01/22/2024 01:14:05 03/25/2024 XR, hand, 3 or more view completed INTERFACE [facility] [address], [place], [address], 03/25/2024 08:28:53 03/25/2024 XR, hand, 3 or more view completed INTERFACE [facility] [address], [place], [address], 03/25/2024 08:28:55 Procedure Notes None recorded. Medical Equipment None Reported. Allergies Allergen ID Allergen Name Allergen Category Reaction Reaction Severity Criticality Documentation Date Start Date Code Code System Note Provider Name and Address Organization Details Recorded Time 14133 azithromy ruth medicatio n Not available Not available Not available 07/26/20232016 72278 RxNorm Not Available [facility] 4 14:23:17 65630 erythromy ruth medicatio n Not available Not available Not available 07/26/20232022 4053 RxNorm Not Available [facility] 4 14:23:18 68735 Cipro medicatio n Not available Not available Not available 07/26/20232016 79686 3 RxNorm Not Available [facility] 4 14:23:18 81491 amoxicill in trihydrat e medicatio n Not available Not available Not available 07/26/20232016 19866 8 RxNorm Not Available [facility] 4 14:23:18 22034 Substance with sulfonami de structure and antibacte rial mechanism of action (substanc e) medicatio n Not available Not available Not available 07/26/20232016 63074 8003 SNOMED Not Available [facility] 4 14:23:18 Medications Name Sig Start Date Stop Date Status Note LastModified by Organization Details LastModified Time doxycycline hyclate 100 mg capsule TAKE 1 CAPSULE BY MOUTH TWICE DAILY FOR 7 DAYS 06/07 completed Not Available Not Available Not Available citalopram 40 mg tablet TAKE 1 TABLET BY MOUTH EVERY MORNING 06/07 completed Not Available Not Available Not Available fluconazole 150 mg tablet TAKE 1 TABLET BY MOUTH 1 TIME EPEAT DOSE IF STILL HAVING SYMPTOMS IN 72 HOURS 06/07 completed Not Available Not Available Not Available meloxicam 15 mg tablet TAKE 1 TABLET BY MOUTH DAILY NEEDED FOR PAIN 06/07 completed Not Available Not Available Not Available ondansetron HCl 4 mg tablet TAKE 1 TABLET BY MOUTH EVERY 8 HOURS NEEDED FOR NAUSEA/VO MITING FOR 3 DAYS 06/07 completed Not Available Not Available Not Available prednisone 20 mg tablet TAKE 2 TABLETS BY MOUTH DAILY FOR 4 DAYS 06/07 completed Not Available Not Available Not Available peg-electro lyte solution 420 gram oral solution MIX AND DRINK BY MOUTH ON EVENING BEFORE COLONOSCO PY 8 OZ OF PREP EVERY 15-20 MINUTES UNTIL FINISHED 06/07 completed Not Available Not Available Not Available famotidine 20 mg tablet TAKE 1 TABLET BY MOUTH DAILY active Not Available Not Available No t Available flecainide 50 mg tablet TAKE 1 TABLET BY MOUTH TWICE DAILY 06/07 completed Not Available Not Available Not Available flecainide 100 mg tablet TAKE 1 TABLET BY MOUTH TWICE DAILY 06/07 completed Not Available Not Available Not Available cefdinir 300 mg capsule TAKE 1 CAPSULE BY MOUTH EVERY 12 HOURS FOR 5 DAYS 06/07 completed Not Available Not Available Not Available cyclosporin e 0.05 % eye drops in a dropperette INSTILL 1 DROP BOTH EYES TWICE DAILY 06/07 completed Not Available Not Available Not Available metoprolol tartrate 25 mg tablet TAKE 1 TABLET BY MOUTH TWICE DAILY active Not Available Not Available No t Available duloxetine 30 mg capsule,del ayed release TAKE 1 CAPSULE BY MOUTH TWICE DAILY active Not Available Not Available No t Available levalbutero l HFA 45 mcg/actuati on aerosol inhaler INHALE 2 PUFFS BY MOUTH EVERY 4 HOURS NEEDED FOR WHEEZING active Not Available Not Available No t Available diclofenac 1 % topical gel 06/07 completed Not Available Not Available Not Available Stiolto Respimat 2.5 mcg-2.5 mcg/actuati on solution for inhalation INHALE 2 PUFFS BY MOUTH EVERY 24 HOURS active Not Available Not Available No t Available Bevespi Aerosphere 9 mcg-4.8 mcg HFA aerosol inhaler INHALE 2 PUFFS BY MOUTH TWICE DAILY active Not Available Not Available No t Available BinaxNOW COVID-19 Ag Self Test kit TEST DIRECTED TODAY 06/07 completed Not Available Not Available Not Available Paxlovid 300 mg (150 mg x 2)-100 mg tablets in a dose pack TK 2 NIRMATREL VIR TS AND 1 RITONAVIR T TOGETHER PO BY MOUTH TWICE DAILY X5 DAYS 06/07 completed Not Available Not Available Not Available Vitals Date Recorded Body height Body mass index (BMI) Body weight Provider Name and Address Organization Details Last Updated DateTime 08/17/2023 165.1 cm 43.3 kg/m2 769007.02 g ROBERTO CACERES [facility] 08/17/2023 13:10:46 Date Recorded Body height Body mass index (BMI) Body weight Provider Name and Address Organization Details Last Updated DateTime 08/24/2023 165.1 cm 43.3 kg/m2 005337.02 g Isreal Prince [facility] 08/24/2023 12:54:56 Date Recorded Body height Body mass index (BMI) Body weight Provider Name and Address Organization Details Last Updated DateTime 08/31/2023 165.1 cm 43.3 kg/m2 460820.02 g ELLA VU [facility] 08/31/2023 13:07:16 Date Recorded Body height Body mass index (BMI) Body weight Provider Name and Address Organization Details Last Updated DateTime 03/25/2024 165.1 cm 43.3 kg/m2 154136.02 g ANETTE JUAN [facility] 03/25/2024 09:04:35 Date Recorded Body height Body mass index (BMI) Body weight Provider Name and Address Organization Details Last Updated DateTime 07/25/2024 165.1 cm 43.3 kg/m2 691982.02 g Donavan Gamble [facility] 07/25/2024 12:58:16 Social History None recorded. Functional Status None recorded. Mental Status None recorded. Family History Nothing Reported. Medical History Condition Response Anxiety/Depression Y Emphysema Y COPD Y Arthritis Y Acid Reflux (GERD) Y Allergies/Hayfever Y Gynecological HistoryNo gynecological history recorded. Obstetrics History GPAL:G 0 P 0 0 0 0 Past Encounters Encounter ID Performer Location Encounter Start Date Encounter Closed Date Diagnosis/Indication Diagnosis SNOMED-CT Code Diagnosis ICD10 Code Diagnosis Note [id number] Sean Odonnell PA-C [facility] [address] [place] [address] 08/17/2023 12:44:59 08/31/2023 14:08:23 Bilateral osteoarthritis of knees 7671700416 21330 M17.0 [id number] Sean Odonnell PA-C [facility] [address] [place] [address] 08/24/2023 12:39:13 08/24/2023 13:27:19 Bilateral osteoarthritis of knees 8274572778 93904 M17.0 [id number] Sean Odonnell PA-C [facility] [address] [place] [address] 08/31/2023 12:43:38 09/13/2023 15:26:30 Bilateral osteoarthritis of knees 1895000531 89669 M17.0 [id number] Chandrakant Rowell PA-C [facility] [address] [place] [address] 03/25/2024 07:54:46 04/11/2024 18:17:22 Pain of left hand 8556813472 73494 M79.535 [id number] Whitney huerta PA-C [facility] [address] [place] [address] 07/25/2024 12:35:11 07/25/2024 16:52:39 Pain of left knee joint 7791383921 18527 M25.562 Primary go narthrosis, bilateral 677664754 M17.0 Health Concerns Section Related Observation LastModified by Organization Detai ls LastModified Time None Recorded Concern Status LastModified by Organization Details LastModified Time None Recorded Advance Directives Directive None Recorded Payers Encounter Date Sequence Insurance Name Policy Number Policy Keyes Covered Member ID Keyes Member ID Guarantor Name 08/17/2023 1 [employer] - DOS ON OR AFTER 2022 - [employer] (MEDICARE REPLACEMENT/ADV ANTAGE - HMO) Britta Yepez Zucco [id number] Britta Yepez Zucco 08/24/2023 1 [employer] - DOS ON OR AFTER 2022 - [employer] (MEDICARE REPLACEMENT/ADV ANTAGE - HMO) Britta Yepez Zucco [id number] Britta Yepez Zucco 08/31/2023 1 [employer] - DOS ON OR AFTER 2022 - [employer] (MEDICARE REPLACEMENT/ADV ANTAGE - HMO) Britta Yepez Zucco [id number] Britta Yepez Zucco 03/25/2024 1 [employer] - DOS ON OR AFTER 2022 - [employer] (MEDICARE REPLACEMENT/ADV ANTAGE - HMO) Britta Yepez Zucco [id number] Britta Yepez Zucco 07/25/2024 1 [employer] - DOS ON OR AFTER 2022 - [employer] (MEDICARE REPLACEMENT/ADV ANTAGE - HMO) Britta Yepez Zucco [id number] Britta Yepez Zucco Notes Date Note Type Note Provider Name and Address Organization Details Recorded Time 08/17/2023 text/html I am seeing the patient today under the supervision of Dr. Higuera who was available but who did not see the patient. HPI:Patient presents today follow-up regarding their {{Left Right Bi-lateral *}} knee. They have had difficulty up and down stairs sitting standing. Previous injection gave good relief until recent. Problems ambulating. Qczo-wtu-vvvmfrt medications are helping somewhat but not significantly. Pain is constant aching sometimes sharp pain with giving out sensations. Patient here for bilateral Euflexxa injections. Past family, medical, social history and review of systems has been reviewed, updated and is located in the patient? s chart. Examination:The patient is well appearing and in no apparent distress. Alert and oriented x3. Gait is symmetric. Examination of the {{Left Right Bi-lateral *}} knee reveals no evidence of any edema, erythema, or warmth. No Deformity. Range of motion of the knee limited with mild discomfort at the end ranges. Mild effusion. Discomfort present over both lateral and medial joint compartments. Patellofemoral crepitus is noted. mild lateral ligamentous laxity. Negative Virgen? s. Calf is supple and nontender. Neurovascularly intact distally. Impression:{{Left Right Bi-lateral*}} Knee osteoarthritis Plan:We discussed the role of conservative management including medications, physical therapy, injection and bracing. At this point the patient was to proceed with injection. Please see procedure note. They will follow up with us as scheduled. Sean Odonnell PA-C [address], [place], [address], [facility] 08/17/2023 13:17:51 08/24/2023 text/html I am seeing the patient today under the supervision of {{ Dr. blankenship#}} who was available but who did not see the patient. REASON FOR VISIT Patient is here today for euflexxa injections {{1 2* 3 }} of {{right left bilateral* }} knees. Patient reports no adverse reaction from previous injections. PHYSICAL FINDINGS Edit Text Evaluation of the knees reveals no evidence of infection, no significant joint effusion, no warmth, or erythema. The injection sites are benign. Calves are supple and nontender. 5/5 strength. Some discomfort with range of motion. ASSESSMENT ?? Osteoarthritis of knee -{{right left bilateral *}} knees PLAN After meticulous sterile preparation, knee were injected with Euflexxa 20 mg. Post-injection precautions were reviewed. I recommend ice, restriction of activities and re-evaluation next week for follow up injection. Sean Odonnell PA-C [address], [place], [address], [facility] 08/24/2023 13:09:07 08/31/2023 text/html I am seeing the patient today under the supervision of {{ Dr. Blankenship#}} who was available but who did not see the patient. REASON FOR VISIT Patient is here today for euflexxa injections {{1 2 3* }} of {{right left bilateral* }} knees. Patient reports no adverse reaction from previous injections. PHYSICAL FINDINGS Evaluation of the knees reveals no evidence of infection, no significant joint effusion, no warmth, or erythema. The injection sites are benign. Calves are supple and nontender. 5/5 strength. Some discomfort with range of motion. ASSESSMENT ?? Osteoarthritis of knee -{{right left bilateral *}} knees PLAN After meticulous sterile preparation, knee were injected with Euflexxa 20 mg. Post-injection precautions were reviewed. I recommend ice, restriction of activities and re-evaluation next week for follow up injection. Sean Odonnell PA-C [address], [place], [address], [facility] 08/31/2023 13:09:35 03/25/2024 text/html I am seeing the patient today under the supervision of Dr. Scott who was available but who did not see the patient. DX:. Left STT joint osteoarthritis status post cortisone injection 03/03/2023 HPI: Reexamination. She complained of dorsal radial left wrist pain. Unable to take anti-inflammatories because of cardiac reasons. She is complaining of increased swelling. Tylenol is not affective. Taking capsaicin without relief. No falls or trauma. No numbness, tingling. Past family, medical, social history and review of systems has been reviewed, updated and is located in the patient? s chart. Examination: Alert and oriented ? 3 . No acute distress. Nonantalgic gait. Examination of left wrist reveals swelling. No erythema. Wrist flexion and extension are near full. She tender over the STT joint. No tenderness over the basilar joint.. Digital range of motion is near full. Sensation intact in all nerve distribution. She is tender over the radiocarpal joint and ulnocarpal interval. Neurovascularly intact. Right wrist shows no warmth, erythema, swelling, or effusion. Full ROM, 5/5 strength all muscle groups and no evidence of instability. X-rays ordered, obtained and reviewed at [facility] 3 views left wrist reveal cystic changes of the distal pole of the scaphoid. STT changes noted. Impression/Plan: Findings and the situation discussed. Recommended a cortisone injection.Under aseptic technique. 40 mg of Kenalog 40 and 1 cc 1% lidocaine were injected into the STT joint, left wrist. She tolerated procedure well. She will follow-up in 6 weeks if no improvement Chandrakant Rowell PA-C [address], [place], [address], [facility] 03/25/2024 09:05:14 07/25/2024 text/html I am seeing the patient today under the supervision of {{Katerina Leigh#}}who was available but who did not see the patient. Chief ComplaintThe patient presents today for follow-up evaluation regarding the {{Left Right Bilateral* }} knee osteoarthritis. Is known to have knee arthritis treated conservatively to this point with relief of symptoms. Cortisone is no longer effective in relieving her knee pain, but Euflexxa has worked well for her. She has had nearly a year of relief since her previous Euflexxa injections. Past Medical/Surgical HistoryReviewed today, otherwise unchanged per intake sheet. Physical FindingsGeneral Appearance: Mild antalgic gait Knee exam findings note: restrictions are range of motion with pain at extremes, tenderness to palpation involving medial and lateral compartment with mild crepitance, trace effusion, extensor mechanism intact, no instability. X-rays of the bilateral knees 4 views demonstrate severe degenerative changes to both knees bone on bone articulation medial compartment with bony sclerosis annd osteophyte formation. Assessment? ? Osteoarthritis of {{Left Right Bilateral* }} knee PlanI discussed with the patient today regarding their knee condition to include all treatment options, conservation and operative, to include total knee replacement surgery which after further discussion, the patient does not wish to pursue any type of operative intervention. In regards to the patient's knees today, I have recommended continued conservative treatment with use of tylenol, possible use of antiinflammatories as well as repeat Euflexxa series for Visco supplementation. We will obtain prior authorization and call the patient to return for the injections once approved. Questions answered. [employer] [facility] speech recognition client care manager software was used to create portions of this document. An attempt at proofreading has been made to minimize errors. Please call for corrections. Whitney Whitmore PA-C [address], [place], [address], [facility] 07/25/2024 16:52:37 OBGyn Episode No OBEpisode recorded.
--- OUTSIDE RECORDS SUMMARY | 2024-07-31 13:32 | XMS_ITS | Continuity of Care Document ---
Author Organization [facility], [facility] 3rd floor Address [address] [place] [address] Care Team Providers Care Personal Injury Legal Assistant Name Role Phone CHAYO KEMP Primary Care Provider Assessment No assessment recorded. Plan of Treatment Reminders Order Date Submit Date Provider Last Modified By Organization Details Last Modified Time Details Appointments None record ed. Lab None record ed. Referral None record ed. Procedures None record ed. Surgeries None record ed. Imaging None record ed. Medication Orders None record ed. Patient TargetsNo targets recorded. Patient InstructionsNo instructions recorded. Reason for Referral None Reported. Problems Name Problem SNOMED Code Status Onset Date Resolution Date Notes Provider Name and Address Organization Details Recorded Time No complaint s 547222002 Active Status: 'I'; Not Available [facility] 4 09:20:40 Sprain of medial collatera l ligament of knee 41434916 Active 2017 Problem Code: S83.412A ; Problem Code Type: ICD-10; Status: 'A'; Not Available [facility] 4 11:42:35 Idiopathi c osteoarth ritis 422157431 Active 2017 Problem Code: M17.0; Problem Code Type: ICD-10; Status: 'A'; Not Available [facility] 4 11:42:35 Arthralgi a of the ankle and/or foot 685647912 Active 2019 Problem Code: M25.571; Problem Code Type: ICD-10; Status: 'A'; Not Available [facility] 4 11:42:35 Pain of left knee joint 792517710737 107 Active 2016 Problem Code: M25.562; Problem Code Type: ICD-10; Status: 'A'; Not Available [facility] 11[facility] Derangeme nt of medial meniscus of left knee 663783334541 108 Active 2017 Problem Code: M23.332; Problem Code Type: ICD-10; Status: 'A'; Not Available [facility] 11:42:36 Problem Notes None recorded. Procedures Surgical History Date Name Laterality Status Provider Name and Address Organization Details Recorded Time 4 Wrist Joint Kenalog Injection, L/R completed Chandrakant Rowell PA-C [address], [place], [address], [facility] 03/25/2024 09:04:57 4 Euflexxa Knee Injection Yobani completed Sean Odonnell PA-C [address], [place], [address], [facility] 08/31/2023 13:09:07 4 Euflexxa Knee Injection Yobani completed Sean Odonnell PA-C [address], [place], [address], [facility] 08/24/2023 13:08:35 4 Euflexxa Knee Injection Yobani completed Sean Odonnell PA-C [address], [place], [address], [facility] 08/17/2023 13:17:06 8 Other completed Donavan Gamble [facility] 07/25/2024 12:58:08 6 Other completed Donavan [facility] 07/25/2024 12:58:08 Imaging Results None recorded. Procedure Notes None recorded. Medical Equipment None Reported. Allergies Allergen ID Allergen Name Allergen Category Reaction Reaction Severity Criticality Documentation Date Start Date Code Code System Note Provider Name and Address Organization Details Recorded Time 41716 azithromy ruth medicatio n Not available Not available Not available 07/26/20232016 97146 RxNorm Not Available [facility] 4 14:23:17 09535 erythromy ruth medicatio n Not available Not available Not available 07/26/20232022 4053 RxNorm Not Available [facility] 4 14:23:18 47551 Cipro medicatio n Not available Not available Not available 07/26/20232016 71282 3 RxNorm Not Available [facility] 4 14:23:18 58932 amoxicill in trihydrat e medicatio n Not available Not available Not available 07/26/20232016 22241 8 RxNorm Not Available [facility] 4 14:23:18 12711 Substance with sulfonami de structure and antibacte rial mechanism of action (substanc e) medicatio n Not available Not available Not available 07/26/20232016 95520 8003 SNOMED Not Available [facility] 4 14:23:18 Medications Name Sig Start Date [...] Updated DateTime 07/25/2024 165.1 cm 43.3 kg/m2 276592.02 g Donavan Gamble [place] - [place] [facility] 07/25/2024 12:58:16 Social History None recorded. Functional Status None recorded. Mental Status None recorded. Family History Nothing Reported. Medical History Condition Response Emphysema Y Allergies/Hayfever Y Acid Reflux (GERD) Y Anxiety/Depression Y Arthritis Y COPD Y Gynecological HistoryNo gynecological history recorded. Obstetrics History GPAL:G 0 P 0 0 0 0 Past Encounters Encounter ID Performer Location Encounter Start Date Encounter Closed Date Diagnosis/Indication Diagnosis SNOMED-CT Code Diagnosis ICD10 Code Diagnosis Note [id number] [facility] 3rd floor [address] [place] [address] 07/25/2024 12:35:11 07/25/2024 16:52:39 Pain of left knee joint 6781401199 39929 M25.562 Primary go narthrosis, bilateral 839775809 M17.0 Health Concerns Section Related Observation LastModified by Organization Detai ls LastModified Time None Recorded Concern Status LastModified by Organization Details LastModified Time None Recorded Payers Encounter Date Sequence Insurance Name Policy Number Policy Keyes Covered Member ID Keyes Member ID Guarantor Name 07/25/2024 1 [facility] - DOS ON OR AFTER 2022 - [employer] (MEDICARE REPLACEMENT/ADV ANTAGE - HMO) Britta Ford [id number] Britta Ford Notes Date Note Type Note Provider Name and Address Organization Details Recorded Time 07/25/2024 text/html I am seeing the patient today under the supervision of DrRomy {{Katerina Leigh#}}who was available but who did [...] with bony sclerosis annd osteophyte formation. Assessment? Osteoarthritis of {{Left Right Bilateral* }} knee [...] for the injections once approved. Questions answered. [email or web address] speech recognition marketing services specialist software was used to create portions of this document. An attempt at proofreading has been made to minimize errors. Please call for corrections. Whitney Whitmore PA-C [address] [facility] [address], [place], [address], [facility] - [place] [facility] 07/25/2024 16:52:37 OBGyn Episode No OBEpisode recorded.
--- OUTSIDE RECORDS SUMMARY | 2024-07-31 13:32 | XMS_ITS | Encounter Summary ---
Author Organization [facility] Address [address] [place] [address] Care Team Providers Care Cryptologic Supervisor Name Role Phone Brian Arguelles MD Primary Care Provider Reason for Visit * Reason Onset Date Comments Procedure 06/26/2024 ILR Implant 3.21 .25 Encounter Details Date Type Department Care Team (Late st Contact Info) Description 06/26/2024 Telephone [facility] - [facility] [address] [facility] [address] [place] [address] Jay Constantino MD 300 [facility] [address] [place], [place] [id number] Procedure (ILR Implant 3.21.25) Social History Tobacco [...] Scheduled on 08.11.[address] Constantino at [facility] at 830am Mailing packet to patient [...] before procedure. Patient is to report to [facility] to the 3rd floor - Near [...] EDT Hospital Encounter [facility] [address] [place] [address] Jay Constantino MD [address] [address] Paroxysmal atrial fibrillation (CMS/HCC) 08/11/2024 8:30 AM EDT - 08/11/2024 9:00 AM EDT Surgery [facility] [address] [place] [address] Jay Constantino MD [address] [address] Loop recorder insertion [65428 (CPT??)] Scheduled Orders Name Type Priority Associated [...] fibrillation documented in this encounter Care Teams Cryptologic Supervisor Relationship Specialty Start Date End Date Brian Arguelles MD [address] [place] [address] PCP - General 06/01/23 documented as of this encounter
--- OUTSIDE RECORDS SUMMARY | 2024-07-31 13:32 | XMS_ITS | Encounter Summary ---
Author Organization [facility] Address [address] [place] [address] Care Team Providers Care Executive Assistant To General Counsel Name Role Phone Brian Arguelles MD Primary Care Provider [phone] Reason for Visit * Reason Onset Date Comments ROCT Enrollment 07/26/2024 Enrolling billie t for 14 day ROCT Encounter Details Date Type Department Care Team (Late st Contact Info) Description 07/26/2024 Telephone [facility] - [facility] [address] 300 [facility] Ravi [address] [place] [address] Errol Russo MA ROCT Enrollment (Enrolling patient for 14 day ROCT) Social History Tobacco Use Types Packs/Day Years [...] as of this encounter Progress Notes * Errol Russo MA - 07/26/2024 9:13 AM EST Images from the original note were not included. See encounter from 07/11/24, patient is ok to book per Suyapa. 07/26/24- Enrolling patient for 14 day ROCT ordered by ABIGAIL Mahajan// to read Dx: PAF- not on AC *notify if af seen* I called and spoke to patient, she is aware [facility] will reach out to her to schedule home delivery. documented in this encounter Plan of Treatment Upcoming Encounters Date Type Department Care Team (Latest Contact Info) Description 08/11/2024 8:30 AM EDT Hospital Encounter [facility] Cardiac Application Defense Manager [address] [place] [address] Jay Constantino MD [address] [address] Paroxysmal atrial fibrillation (CMS/HCC) 08/11/2024 8:30 AM EDT - 08/11/2024 9:00 AM EDT Surgery [facility] Card[facility] Application Defense Manager [address] [place] [address] Jay Constantino MD [address] [address] Loop recorder insertion [[id number] (CPT??)] documented as of this encounter Visit Diagnoses Not on filedocumented in this encounter Care Teams Executive Assistant To General Counsel Relationship Specialty Start Date End Date Brian Arguelles MD [address] [place] [address] Dr Rodrigues [facility] PATI Romero PCP - General 06/01/23 documented as of this encounter
== END 2024-07-31 13:22 | disposition home or self-care (01) ==
PROVIDERS: PCP Family Medicine; Visit Provider Physician Assistant Medical
DX: Z13.9 Encounter for screening, unspecified (principal)

== ENCOUNTER → 2024-07-31 11:50 | Outpatient (BNVA) | payer OTHER, SELFPAY | PROVIDERS: PCP Family Medicine; Visit Provider Physician Assistant Medical | DX: Z00.00 Encounter for general adult medical examination without abnormal findings (principal); G89.29 Other chronic pain; R73.03 Prediabetes; I48.0 Paroxysmal atrial fibrillation; G47.33 Obstructive sleep apnea (adult) (pediatric); J44.9 Chronic obstructive pulmonary disease, unspecified; F41.8 Other specified anxiety disorders; Z99.89 Dependence on other enabling machines and devices | CPT/HCPCS: 83036; 96127; 99397 ==

== ENCOUNTER 2024-08-15 09:32 | Outpatient (AMB) | payer OTHER, SELFPAY ==
--- NOTE | 2024-08-15 09:44 | A.OFFPC_ITS ---
Vital Signs 08/15/24 09:48 Height 5 ft 6 in Weight 265 lb 8 oz BMI 42.8 BP 110/66 Blood Pressure Location Lt brachial Position Sitting Respiration 16 Pulse 69 Pulse Source Pulse Oximeter Temp 98.9 F Temp Source Oral Pulse Oximetry (%) 93 Oxygen Delivery Method Room Air Intake Visit Reasons: chronic pain med discussion Intake Note: patient is scheduled for chronic pain Magistrate Judge Required: No Allergies amoxicillin Allergy (Unknown, Verified 08/15/24 09:47) Hives azithromycin [Zithromax] Allergy (Unknown, Verified 08/15/24 09:47) Hives ciprofloxacin [Cipro] Allergy (Unknown, Verified 08/15/24 09:47) Hives codeine Allergy (Unknown, Verified 08/15/24 09:47) Hives Sulfa (Sulfonamide Antibiotics) Allergy (Unknown, Verified 08/15/24 09:47) Hives epinephrine Adverse Reaction (Severe, Verified 08/15/24 09:47) Anaphylaxis Clindamycin HCl Allergy (Unknown, Uncoded 07/31/24 11:59) Hives Erythromycin Allergy (Unknown, Uncoded 07/31/24 11:59) Hives Medication List - Last Reconciled 08/15/24 by Brian Arguelles MD cetirizine (Zyrtec) 10 mg PO DAILY PRN duloxetine 30 mg PO BID 30 days famotidine 20 mg PO DAILY 90 days levalbuterol tartrate 45 mcg/actuation 2 puffs inhalation Q4H PRN magnesium chloride ER 64 mg PO DAILY metoprolol tartrate 25 mg PO BID tiotropium-olodaterol 2.5-2.5 mcg/actuation (Stiolto Respimat) 2 puffs inhalation DAILY tirzepatide (Mounjaro) 2.5 mg (0.5 mL) subcut QWEEK Tobacco use date assessed: 07/31/24 Dental Screening Dental Screen Date: 07/31/24 HPI chronic pain med discussion HPI Details 69 y/o female presents to f/u chronic pa in. Reports ongoing chronic pain. She is prescribed duloxetine 30mg b.i.d. for pain. Did not find tylenol helpful for pain. Had been on meloxicam in the past with good effect. Had been advised by her workforce management manager not to use NSAIDs. [facility] Medical History (Updated 08/15/24 @ 10:27 by Jim Goel) History of electrophysiologic study Routine physical examination Chronic pain Paroxysmal atrial flutter LIBERTY on CPAP Obesity Insomnia Hyperglycemia GERD (gastroesophageal reflux disease) Diverticular disease Chronic rhinitis COPD (chronic obstructive pulmonary disease) Depression Anxiety Surgical History History of gynecologic surgery History of hysteroscopy H/O section History of tonsillectomy History of endoscopic gastrointestinal surgery Social History Household Members: Children Housing: House Alcohol intake: never Patient Tobacco Use Status: Former Tobacco user Cigarette Packs Per Day: 1.5 Cigarettes Per Day: 20 Years Smoked: 40 e-Cigarette/Vaping Use: Never Used Second Hand Smoke Exposure: Yes service: No Current occupational status: retired Current occupational exposures/hazards: No Sexual orientation: Unable to collect Gender identity: Unable to collect Cognitive needs: No Hearing needs: No Vision needs: Yes (wears glasses) Questionnaire Thrive Questionnaire Date Thrive assessed: 07/31/24 I am a: Patient What is your living situation today?: I have a steady place to live Within the past 12 months, did the food you bought not last and you didn't have the money to get more?: Often true Within the past 12 months, did you worry whether your food would run out before you got money to buy more?: Often true Do you have trouble paying for medicines?: No Do you have trouble getting transportation to medical appointments?: No Do you have trouble paying your heating and electricity bill?: No Do you have trouble taking care of your child, family member or friend?: No Do you have trouble with day-to-day activities such as bathing, preparing meals, shopping, managing finances, etc.?: No Are you currently unemployed and looking for a job?: No Are you interested in more education?: No Please select the resources that you would like help with: None Currently or been in a relationship where the following occur: No concerns reported THRIVE Score: 2 AUDIT C Alcohol Use Questionnaire (AUDIT-C) 3. How often do you have six or more drinks on one occasion?: Never Total Score: 0 RIC-7 AMB Questionnaire RIC-7 Date RIC - 7 assessed: 07/31/24 Source: Developed by Jen Adams B.W. Dre, Patrick Morejon and colleagues, with an educational tete from [employer]. Review of Systems Const Denies chills, Denies fatigue, Denies fever(s), Denies headache(s) and Denies weakness ENT Denies dizziness and Denies headache(s) Card Denies dyspnea Resp Denies cough, Denies dyspnea, Denies wheezing and Denies other (shortness of breath) Musc Denies numbness and Denies tingling Neuro Denies dizziness, Denies headache(s), Denies numbness, Denies tingling and Denies weakness Psych Denies anxiety and Denies depression Endo Denies fatigue Aller/Immun Denies wheezing Physical exam (Primary Care) Vital Signs: Last Vital Signs Temp 98.9 F 08/15/24 09:48 Pulse 69 08/15/24 09:48 Resp 16 08/15/24 09:48 BP 110/66 08/15/24 09:48 Pulse Ox 93 08/15/24 09:48 Oxygen Delivery Method Room Air 08/15/24 09:48 BMI result Body Mass Index 42.8 Tobacco/Smoking Status: Tobacco use Status Tobacco use date assessed 07/31/24 08/15/24 09:46 Patient Tobacco Use Status Former Tobacco user 08/15/24 09:46 e-Cigarette/Vaping Use Never Used 08/15/24 09:46 Thrive Assessment: Date of Thrive Assessment Date Thrive assessed 07/31/24 08/15/24 09:46 Currently or been in a relationship where the following occur: No concerns re ported Const General: well developed; No acute distress Nutritional Appearance: well nourished and obese morbidly obese Orientation/consciousness: patient oriented x3 HENMT Head: Yes normocephalic and Yes atraumatic Eyes General: appearance normal, both eyes and all related structures Pupils: Equal, round and reactive pupils present EOM: EOMs intact bilaterally Resp Effort & Inspection: normal respiratory effort Neuro General: patient oriented x3 and gait normal Cranial nerves: Yes Equal, round and reactive pupils present Psych Affect: normal affect Coding Level of Care Code Est Pt Level 4 (28913) Diagnoses Chronic pain G89.29 Paroxysmal atrial fibrillation I48.0 Pre-diabetes R73.03 Morbid obesity E66.01 Assessment & Plan Assessment & Plan (1) Chronic pain: Code(s): G89.29 - Other chronic pain Category: Medical Plan: Chronic?pain?and?polyarthralgias?and?patient?has?severe?bilateral?knee?pain?for? which?she?is?getting?injections?through?[facility]. She?has?been?on?meloxicam?in?the?past?with?good affect. She?is?not?on?any?blood?thinners.??We?discussed?this?at?length. She?does?not?have?a ny?kidney?issues?and?most?recent?lab?work?shows?normal?kidney?function. Currently?she?is?a?good?candidate?for?nonsteroidal?anti- inflammatories?and?we?will?start?with?naproxen?500?mg?b.i.d.. We?did?di scuss?that?if?she?would?need?to?begin?any?blood?thinners?she?would?have?to?disco ntinue?the?naproxen. We?discussed?that?if?she?has?any?problems?with?her?kidney?function?that?would?be ?another?reason?to?discontinue?it. We?also?talked?about?weight?loss?and?she?was?trying?to?start?Mounjaro?for?weight ?loss?to?improve?symptoms?in?her?knees.??See?below (2) Paroxysmal atrial fibrillation: Code(s): I48.0 - Paroxysmal atrial fibrillation Category: Medical Plan: Patient?had?recent?ointments?with?EP?Cardiology I?do?not?have?these?notes. Requesting?these. Patient?says?there?is?no?plan?to?start?her?on?any?anticoagulant?and?she?assures? me?that?she?is?not?on?1.??There?is?no?anticoagulant?on?her?med?list. (3) Pre-diabetes: Code(s): R73.03 - Prediabetes Category: Medical Plan: Patient?has?pre?diabetes?but?currently?not?diabetes. Had?tried?to?start?Mounjaro.??This?was?denied?and prior?authorization?pr ocedure?was?started.??I?am?asking?the?office?to?look?into?the?results. Also?spoke?to?patient?about?looking?into?what?GLP?1?medication?her insurance?might?cover. (4) Morbid obesity: Code(s): E66.01 - Morbid (severe) obesity due to excess calories Category: Medical Plan: As?above Medications: New naproxen 500 mg PO BID 30 days PRN 60 tabs 3RF pain
[2024-08-15 09:48] VITALS: BP 110/66; PULSE 69; RESP 16; TEMP 37.2; O2SAT 93; BMI 42.8
== END 2024-08-15 10:29 | disposition home or self-care (01) ==
LOC: HO.HMCFM 09:33
PROVIDERS: PCP Family Medicine; Visit Provider Family Medicine
DX: I48.0 Paroxysmal atrial fibrillation (principal); E66.01 Morbid (severe) obesity due to excess calories; Z68.41 Body mass index [BMI] 40.0-44.9, adult; G89.29 Other chronic pain; R73.03 Prediabetes

== ENCOUNTER → 2024-08-15 09:32 | Outpatient (BNVA) | payer OTHER, SELFPAY | PROVIDERS: PCP Family Medicine; Visit Provider Family Medicine | DX: G89.29 Other chronic pain (principal); I48.0 Paroxysmal atrial fibrillation; R73.03 Prediabetes; E66.01 Morbid (severe) obesity due to excess calories; Z68.41 Body mass index [BMI] 40.0-44.9, adult; Z71.3 Dietary counseling and surveillance | CPT/HCPCS: 99212 ==

== ENCOUNTER 2024-09-27 11:16 | Outpatient (AMB) | payer OTHER, SELFPAY ==
--- NOTE | 2024-09-27 11:53 | A.OFFPC_ITS ---
Vital Signs 09/27/24 11:57 Height 5 ft 6 in Weight 256 lb 2 oz BMI 41.3 BP 126/68 Blood Pressure Location Rt brachial Position Sitting Respiration 16 Pulse 81 Pulse Source Pulse Oximeter Temp 98.2 F Temp Source Oral Pulse Oximetry (%) 96 Oxygen Delivery Method Room Air Intake Visit Reasons: f/u chronic pain Intake Note: patient is scheduled for chronic pain and will like to talk about naproxen and weight loss med no one will prescribe. Allergies amoxicillin Allergy (Unknown, Verified 09/27/24 11:55) Hives azithromycin [Zithromax] Allergy (Unknown, Verified 09/27/24 11:55) Hives ciprofloxacin [Cipro] Allergy (Unknown, Verified 09/27/24 11:55) Hives codeine Allergy (Unknown, Verified 09/27/24 11:55) Hives Sulfa (Sulfonamide Antibiotics) Allergy (Unknown, Verified 09/27/24 11:55) Hives epinephrine Adverse Reaction (Severe, Verified 09/27/24 11:55) Anaphylaxis Clindamycin HCl Allergy (Unknown, Uncoded 09/27/24 11:55) Hives Erythromycin Allergy (Unknown, Uncoded 09/27/24 11:55) Hives Tobacco use date assessed: 07/31/24 Dental Screening Dental Screen Date: 07/31/24 HPI f/u chronic pain HPI Details 69 y/o female presents to f/u chronic pa in with diffuse polyarthralgia. Started her on naproxem. Pt would like to talk about weight loss meds. BMI today 41.3. Knee pain improved with injection therapy. Naproxen had been helping with back pain. HPI Comments History of Present Illness Details Documentation assistance for Brian Arguelles MD, was provided by Jim Goel,? Teleradiologist on 09/27/2024 at 12:11 PM EST. I, Dr. Arguelles, have read, observed, and verified documentation. [facility] Medical History (Updated 09/27/24 @ 12:27 by Jim Goel) History of electrophysiologic study Routine physical examination Chronic pain Paroxysmal atrial flutter LIBERTY on CPAP Obesity Insomnia Hyperglycemia GERD (gastroesophageal reflux disease) Diverticular disease Chronic rhinitis COPD (chronic obstructive pulmonary disease) Depression Anxiety Surgical History History of gynecologic surgery History of hysteroscopy H/O section History of tonsillectomy History of endoscopic gastrointestinal surgery Social History Household Members: Children Housing: House Alcohol intake: never Patient Tobacco Use Status: Former Tobacco user Cigarette Packs Per Day: 1.5 Cigarettes Per Day: 20 Years Smoked: 40 e-Cigarette/Vaping Use: Never Used Second Hand Smoke Exposure: Yes service: No Current occupational status: retired Current occupational exposures/hazards: No Sexual orientation: Unable to collect Gender identity: Unable to collect Cognitive needs: No Hearing needs: No Vision needs: Yes (wears glasses) Questionnaire Thrive Questionnaire Date Thrive assessed: 07/31/24 I am a: Patient What is your living situation today?: I have a steady place to live Within the past 12 months, did the food you bought not last and you didn't have the money to get more?: Often true Within the past 12 months, did you worry whether your food would run out before you got money to buy more?: Often true Do you have trouble paying for medicines?: No Do you have trouble getting transportation to medical appointments?: No Do you have trouble paying your heating and electricity bill?: No Do you have trouble taking care of your child, family member or friend?: No Do you have trouble with day-to-day activities such as bathing, preparing meals, shopping, managing finances, etc.?: No Are you currently unemployed and looking for a job?: No Are you interested in more education?: No Please select the resources that you would like help with: None Currently or been in a relationship where the following occur: No concerns reported THRIVE Score: 2 RIC-7 AMB Questionnaire RIC-7 Date RIC - 7 assessed: 07/31/24 Source: Developed by Drs. Mejia Bess, Jen Erickson, Patrick Morejon and colleagues, with an educational tete from [employer]. Review of Systems Const Denies chills, Denies fatigue, Denies fever(s), Denies headache(s) and Denies weakness ENT Denies dizziness and Denies headache(s) Card Denies dyspnea Resp Denies cough, Denies dyspnea, Denies wheezing and Denies other (shortness of breath) Musc Denies numbness and Denies tingling Neuro Denies dizziness, Denies headache(s), Denies numbness, Denies tingling and Denies weakness Psych Denies anxiety and Denies depression Endo Denies fatigue Aller/Immun Denies wheezing Physical exam (Primary Care) Vital Signs: Last Vital Signs Temp 98.2 F 09/27/24 11:57 Pulse 81 09/27/24 11:57 Resp 16 09/27/24 11:57 BP 126/68 09/27/24 11:57 Pulse Ox 96 09/27/24 11:57 Oxygen Delivery Method Room Air 09/27/24 11:57 BMI result Body Mass Index 41.3 Tobacco/Smoking Status: Tobacco use Status Tobacco use date assessed 07/31/24 09/27/24 11:54 Patient Tobacco Use Status Former Tobacco user 09/27/24 11:54 e-Cigarette/Vaping Use Never Used 09/27/24 11:54 Thrive Assessment: Date of Thrive Assessment Date Thrive assessed 07/31/24 09/27/24 11:54 Currently or been in a relationship where the following occur: No concerns reported Const General: well developed; No acute distress Nutritional Appearance: well nourished Orientation/consciousness: patient oriented x3 HENMT Head: Yes normocephalic and Yes atraumatic Eyes General: appearance normal, both eyes and all related structures Pupils: Equal, round and reactive pupils present EOM: EOMs intact bilaterally Resp Effort & Inspection: normal respiratory effort Neuro General: patient oriented x3 and gait normal Cranial nerves: Yes Equal, round and reactive pupils present Psych Affect: normal affect Coding Level of Care Code Est Pt Level 4 (86186) Diagnoses Chronic pain G89.29 COPD (chronic obstructive pulmonary disease) J44.9 Morbid obesity E66.01 Skin irritation R23.8 Assessment & Plan Assessment & Plan (1) Chronic pain: Code(s): G89.29 - Other chronic pain Category: Medical Plan: Chronic?back?pain?and?chronic?knee?pain. Knee?pain?much?improved?with?injection?therapy Back?pain?is?well?controlled?with?naproxen.??She?does?have?some?relative?contrai ndications?to?NSAIDs?however?she?has?not?had?any?adverse?effects?from?this?and?i t?is?significantly?improving?her?pain. We?discussed?a?strategy?of?using?naproxen?3- 4?days?in?a?row?when?symptoms?are?significantly?elevated?and?then?discontinuing. ??May?repeat?like?this. Call?or?return?to?office?if?any?adverse?effects We?also?discussed?that?if?she?requires?blood?thinners?at?any?point?we?would?need ?to?readdress?this?and?would?likely?need?to?discontinue?NSAIDs. Also?discussed?Celebrex?which?w as?recommended?by?her?pharmacist?but?patient?does?not?want?to?use?this. (2) COPD (chronic obstructive pulmonary disease): Code(s): J44.9 - Chronic obstructive pulmonary disease, unspecified Category: Medical Plan: Patient?is?read?easily?today?and?lungs?are?clear?to?auscultation Continue?current?medication?regimen?and?follow- up?with?pulmonology?as?recommended (3) Morbid obesity: Code(s): E66.01 - Morbid (severe) obesity due to excess calories Category: Medical Plan: Encouraged?diet?and?exercise?as?tolerated She?was?unable?to?get?approved?for?any?medications?for?weight?loss. (4) Skin irritation: Code(s): R23.8 - Other skin changes Category: Medical Plan: Can?use?a?moisturizer?cream?and?if?this?is?not?enough?she?can?use?hydrocortisone ?cream?OTC If?still?having?any?trouble?she?can?return?to?office. Plan Dr Yates Pt was given an internal loop recorder to watch for afib. She is not on thinners.
[2024-09-27 11:57] VITALS: BP 126/68; PULSE 81; RESP 16; TEMP 36.8; O2SAT 96; BMI 41.3
--- OUTSIDE RECORDS SUMMARY | 2024-09-27 12:45 | XMS_ITS | Clinical Summary ---
Author Organization [address] [place] [address] [place] [phone] Phone Care Team Providers Care Baker Bread Name Role Phone Brian Arguelles MD Primary Care Provider Allergies Active Allergy Reactions Criticality Noted Date [...] chloride (Slow-Mag) 71.5 mg tablet,delayed release (DR/EC) Acti ve DULoxetine (CYMBALTA) [address] capsule Take 1 capsule (30 mg total) by mouth 2 (two) times a day. Do not crush or chew. Active metoprolol tartrate (LOPRESSOR) 25 mg tablet TAKE 1 TABLET BY MOUTH TWICE DAILY 180 tablet 3 07/20/2024 Active tiotropium-olod ateroL (Stiolto Respimat) 2.5-2.5 mcg/actuation mist inhaler Inhale 2 puffs by mouth 1 (one) time each day. Active Active Problems Problem Noted Date Diagnosed Date Atrial fibrillation ([facility] V24, CMS/[facility] V28) 1 07/04/2019 Overview (04/16/2024): Atrial fibrillation Palpitations 05/03/2020 Overview (04/16/2024): Palpitations Encounters Date Type Department Care Team Description 09/12/2024 9:30 PM EDT Ancillary Procedure [facility] Cardiology [facility] [address] [address] 08/23/2024 Telephone [facility] Cardiology [facility] [address] [place] [address] Jay Constantino MD 08/15/2024 Telephone [facility] [address] [facility] [address] [place] [address] Jay Constantino MD medical records 08/11/2024 8:30 AM EDT - 08/11/2024 9:00 AM EDT Surgery [facility] [address] [address] [place] [address] Jay Constantino MD Loop recorder insertion [[id number] (CPT??)] 08/11/2024 7:52 AM EDT - 08/11/2024 10:49 AM EDT Hospital Encounter [facility] [address] [place] [address] Jay Constantino MD Paroxysmal atrial fibrillation ([facility] V24, [facility] V28) Discharge Disposition: Home or Self Care 08/01/2024 7:00 AM EDT Ancillary Procedure [facility] Cardiology [facility] [address] [facility] [address] [place] [address] Paroxysmal atrial fibrillation (CMS/HCC V24, CMS/HCC V28); Palpitations 07/26/2024 Telephone [facility] [address] [place] [address] Errol Russo [place] ROCT Enrollment (Enrolling patient for 14 day ROCT) from Last 3 Months Family History Medical [...] Information Value Date Recorded Sex Assigned at Female 08/11/2024 7:48 AM EDT Legal Sex Female 10:51 AM EST Gender Identity Female 08/11/2024 7:48 AM EDT Sexual Orientation Straight 08/11/2024 7: 48 AM EDT Obstetrics History Last Filed Vital Signs Vital Sign Reading Time Taken Comments Blood Pressure 135/64 08/11/2024 8:14 AM EDT Pulse 61 08/11/2024 8:14 AM EDT Temperature - - Respiratory Rate 18 08/11/2024 8:14 AM EDT Oxygen Saturation 93% 08/11/2024 8:14 AM EDT Inhaled Oxygen Concentration - - Weight 113 kg (250 lb) 08/11/2024 8:14 AM EDT Height 167.6 cm (5' 6 ) 08/11/2024 8:14 AM EDT Body Mass Index 40.35 08/11/2024 8:14 AM EDT Plan of Treatment Health Maintenance Due Date Last Done Comments Breast Cancer Screening 1955 Zoster Vaccines (2 of 2) 04/23/2014 02/26/2014 Cholesterol Screening (Lipid Panel) 05/02/2022 Colorectal Cancer Screening: Colonoscopy 05/02/2022 Depression Screening 05/02/2022 Falls Risk Assessment 05/02/2022 Hepatitis C Screening 05/02/2022 Medicare Annual Wellness Visit 05/02/2022 Osteoporosis Screening (Bone Density Screening) 05/02/2022 Social Influencers of Health Screening 05/02/2022 Influenza Vaccine (Season Ended) 2025 02/02/2023, 02/04/2022, 02/07/2021, Additional history exists DTaP,Tdap,and Td Vaccines (4 - Td or Tdap) 08/17/2034 08/17/2024, 01/22/2017, 07/10/2008 MMR Vaccines Aged Out 02/10/2010 No longer eligi ble based on patient's age to complete this topic Pneumococcal Vaccine: 50+ Years Completed 09/23/2022, 08/17/2014, 06/30/2011 RSV Immunization Adult Patients Completed 02/02/2023 COVID-19 Vaccine Completed 08/17/2024, 06/2023, 08/06/2023, Additional history exists HIB Vaccines Aged Out [...] age to complete this topic Meningococcal B Vaccine Aged Out No l onger eligible based on patient's age to complete this topic RSV Immunization Patients Under 20 months Aged Out No longer eligible based on patient's age to complete this topic Varicella Vaccines Aged Out No longer eligible based on patient's age to complete this topic Medical Devices Implanted Type Area Catheter Finisher And Inspector Device Identifier Shelf Expiration Date Model / Serial / Lot Monitor Cardiac Insert Lux Dx Ii+ - [id number] - [id number] Implanted:Qty: 1 on 08/11/2024 at [facility] Cardiac Loop Recorder N/A: Chest [employer] MGMT 12/08/2025 M312 / [id number] / [id number]-[id number] Implanted:08/11 (Quantity not on file) Cardiac Loop Recorder [employer] MGMT [id number] / [id number] / Procedures Procedure Name Priority Date/Time Associated Diagnosis Comments CARDIAC DEVICE CHECK- REMOTE- MURJ Routine 09/12/2024 9:26 PM EDT LOOP RECORDER INSERTION Routine 08/11/2024 9:02 AM EDT Paroxysmal atrial fibrillation (CMS/HCC V24, CMS/HCC V28) CARDIAC HAM DOCTOR W/ CONNECTION (MCOT) Routine 08/01/2024 7:52 AM EDT Paroxysmal atrial fibrillation (CMS/HCC V24, CMS/HCC V28) Palpitations EXTERNAL CLINICAL LAB Routine 07/25/2024 8:55 AM EST from Last 3 Months Results * Cardiac device check - Remote- MURJ (09/12/2024 9:26 PM EDT) Date Time Interrogation Session [id number] CV DEVICE CHECK Type Interrogation Session Remote Scheduled CV DEVICE CHECK Implantable Pulse Generator Catheter Finisher And Inspector BSX CV DEVICE CHECK Implantable Pulse Generator Type ILR CV DEVICE CHECK Implantable Pulse Generator Model M312 CV DEVICE CHECK Implantable Pulse Generator Serial Number [id number] CV DEVICE CHECK Implantable Pulse Generator Implant Date 20240811 CV DEVICE CHECK Battery Status Beginning of Service CV DEVICE CHECK Atrial Tachy Statistic AT/AF [place] Percent 0.00 CV DEVICE CHECK Date of Service 2024-09-21 CV DEVICE CHECK Anatomical Region Laterality Modality Device Interroga tion 09/11/2024 12:4 5 AM EDT Impressions 09/12/2024 3:27 PM EDT Normal Remote: No Events * This is a normal remote diagnostic device check * Alerts or events: None * Battery data was reviewed * Battery status: [place], [place] * Presenting rhythm: SR 70's * Heart Rate Histograms reviewed Narrative Procedure Note Jay Constantino MD - 09/12/2024 IMPRESSION: Normal Remote: No Events * This is a normal remote diagnostic device check * Alerts or events: None * Battery data was reviewed * Battery status: [place], [place] * Presenting rhythm: SR 70's * Heart Rate Histograms reviewed Jay Constantino MD CV IMPLANTABLE CARDIAC DEVICE PROCEDURES Final Result * LOOP RECORDER INSERTION (08/11/2024 9:02 AM EDT) Anatomical Region Laterality Modality X-Ray Angiograph y Narrative 08/15/2024 9:16 AM EDT ?Successful implantation of an implantable loop recorder Study Details Increased risk for stroke due to atrial fibrillation Clinical Background Procedure: Insertion of an implantable loop recorder Indication: 69-year-old female with atrial fibrillation, [id number] score of 3 and relative contraindication anticoagulation. Human Resources Benefits Administrator: Jay Constantino MD Device implanted: [employer] Lux DX II model M312 serial #[id number], R wave 0.29 mV. Procedure detail: After obtaining written informed consent the patient was brought to prep and recovery at [facility]. She was prepped in usual sterile fashion. I injected 1% lidocaine with epinephrine at the third intercostal space just left of the sternum. The implantable loop recorder was injected subcutaneously using the introducer device in a standard fashion. Manual compression was used for hemostasis and a small amount of Dermabond placed over the 1 cm incision. There were no immediate complications and the patient was discharged in good condition Impression: Successful implantation of a implantable loop recorder. Kena Cast NP CV ELECTROPHYSIOLOGY PROCEDU RES Final Result * CARDIAC HAM DOCTOR W/ CONNECTION (MCOT) (08/01/2024 7:52 AM EDT) Anatomical Region Laterality Modality Cardiac Diagnost ic Impressions 08/07/2024 8:10 AM EDT Normal sinus rhythm with an average heart rate of 71 bpm. ??No significant atrial or ventricular arrhythmias. ??1 reported symptomatic event corresponded to sinus tachycardia. Narrative 08/07/2024 8:10 AM EDT ?Benign Holter monitor with normal sinus rhythm and no documented arrhythmias. [facility] DIAGNOSTIC TESTING DEPARTMENT [address] [place] [address], [place] [address], [place] [address] TEL: FAX: TYPE OF TEST 14 day ROCT monitor. DATES OF MONITORIN08/01/24- 08/03/24 (Monitor not worn after 08/03/24 due to skin irritation. Monitor returned 08/05/24) REQUESTING PHYSICIAN: EARL Ramos for Kena Cast NP PRIMARY CARE PROVIDER: Brian Arguelles MD INDICATION: Paroxysmal Atrial Fibrillation PRELIMINARY FINDINGS FROM FIRST CALL MEDICAL: 1. The predominant rhythm was sinus. 2. The average heart rate was 71 bpm, minimum heart rate was 54 bpm, maximum heart rate was 116 bpm. 3. Total SVE burden: < 0.1 % consisting of singles, & SVE Couplet. 4. There were 1 patient triggered symptomatic events. Yeimy ELLIOTT CV CARDIAC SERVICES PROCEDURES F inal Result * External clinical lab (07/25/2024 8:55 AM EST) Historical Provider LAB BLOOD ORDERABLES Jessenia l Result from Last 3 Months Insurance [facility] [employer] Member Subscriber Plan / Payer (Ef fective 2022-Present) Name:Britta Ford Relation to Subscriber:Self Name:Britta Ford Payer ID:[id number] Group ID:[id number] Type:Not on file Address: [place] [address] [place] [id number] Care Teams Baker Bread Relationship Specialty Start Date End Date Brian Arguelles MD [address] [place] [address] Dr Nils [place] PCP - General 06/01/23
== END 2024-09-27 12:31 | disposition home or self-care (01) ==
LOC: HO.HMCFM 11:16
PROVIDERS: PCP Family Medicine; Visit Provider Family Medicine
DX: J44.9 Chronic obstructive pulmonary disease, unspecified (principal); E66.01 Morbid (severe) obesity due to excess calories; Z68.41 Body mass index [BMI] 40.0-44.9, adult; G89.29 Other chronic pain; R23.8 Other skin changes

== ENCOUNTER → 2024-09-27 11:16 | Outpatient (BNVA) | payer OTHER, SELFPAY | PROVIDERS: PCP Family Medicine; Visit Provider Family Medicine | DX: E66.01 Morbid (severe) obesity due to excess calories (principal); M25.50 Pain in unspecified joint; G89.29 Other chronic pain; J44.9 Chronic obstructive pulmonary disease, unspecified; M25.569 Pain in unspecified knee; R23.8 Other skin changes; Z68.41 Body mass index [BMI] 40.0-44.9, adult | CPT/HCPCS: 99212 ==

== ENCOUNTER 2025-01-02 08:26 | Outpatient (AMB) | payer OTHER, SELFPAY ==
--- NOTE | 2025-01-02 08:29 | MHC.PC.OV ---
Vital Signs 01/02/25 08:34 Height 5 ft 6 in Weight 263 lb 2 oz BMI 42.5 BP 120/70 Blood Pressure Location Rt brachial Position Sitting Respiration 16 Pulse 68 Pulse Source Pulse Oximeter Temp 98.2 F Temp Source Temporal Artery Scan Pulse Oximetry (%) 96 Oxygen Delivery Method Room Air Intake Visit Reasons: F/U A1c Intake Note: Britta presents in the office today for her A1C. Needs refills on Duloxetine, Celebrex, Allergies amoxicillin Allergy (Unknown, Verified 01/02/25 08:32) Hives azithromycin (Zithromax) Allergy (Unknown, Verified 01/02/25 08:32) Hives ciprofloxacin (Cipro) Allergy (Unknown, Verified 01/02/25 08:32) Hives codeine Allergy (Unknown, Verified 01/02/25 08:32) Hives Sulfa (Sulfonamide Antibiotics) Allergy (Unknown, Verified 01/02/25 08:32) Hives epinephrine Adverse Reaction (Severe, Verified 01/02/25 08:32) Anaphylaxis Clindamycin HCl Allergy (Unknown, Uncoded 01/02/25 08:32) Hives Erythromycin Allergy (Unknown, Uncoded 01/02/25 08:32) Hives Medication List - Last Reconciled 01/02/25 by Brian Arguelles MD celecoxib 200 mg PO BID PRN 30 days cetirizine (Zyrtec) 10 mg PO DAILY PRN duloxetine 30 mg PO BID 30 days famotidine 20 mg PO DAILY 90 days levalbuterol tartrate 45 mcg/actuation 2 puffs inhalation Q4H PRN magnesium chloride ER 64 mg PO DAILY metoprolol tartrate 25 mg PO BID tiotropium-olodaterol 2.5-2.5 mcg/actuation (Stiolto Respimat) 2 puffs inhalation DAILY Tobacco use date assessed: 01/02/25 Dental Screening Dental Screen Date: 01/02/25 Did you have a dental visit in the last 12 months?: Yes Did you have a dental problem in the last 6 months where you did not have access to dental care?: No Was dental information given to patient?: Patient has dentist HPI F/U A1c HPI Details 69 y/o female presents to f/u pre-diabetes. A1c today 01/02/25 is 6.1%. Reports ongoing chronic pain throughout her body. Notes it has been awhile since her last x-rays of her neck/shoulders. Pt reports difficulty swallowing. Has started x2 months ago. HPI Comments History of Present Illness Details Documentation assistance for Brian Arguelles MD, was provided by Jim Goel,[facility] on 01/02/2025 at 8:57 AM EST. I, Dr. Arguelles, have read, observed, and verified documentation. ? PFSH Medical History (Updated 01/02/25 @ 09:21 by Brian Arguelles MD) History of electrophysiologic study Routine physical examination Chronic pain Paroxysmal atrial flutter LIBERTY on CPAP Obesity Insomnia Hyperglycemia GERD (gastroesophageal reflux disease) Diverticular disease Chronic rhinitis COPD (chronic obstructive pulmonary disease) Depression Anxiety Surgical History History of gynecologic surgery History of hysteroscopy H/O section History of tonsillectomy History of endoscopic gastrointestinal surgery Social History (Updated 01/02/25 @ 08:34 by Nishi Hummel MA) Household Members: Children Housing: House Alcohol intake: never Patient Tobacco Use Status: Former Tobacco user Cigarette Packs Per Day: 1.5 Cigarettes Per Day: 20 Years Smoked: 40 e-Cigarette/Vaping Use: Never Used Second Hand Smoke Exposure: Yes service: No Current occupational status: retired Current occupational exposures/hazards: No Sexual orientation: Unable to collect Gender identity: Unable to collect Cognitive needs: No Hearing needs: No Vision needs: Yes (wears glasses) Questionnaire Thrive Questionnaire Date Thrive assessed: 07/31/24 I am a: Patient What is your living situation today?: I have a steady place to live Within the past 12 months, did the food you bought not last and you didn't have the money to get more?: Often true Within the past 12 months, did you worry whether your food would run out before you got money to buy more?: Often true Do you have trouble paying for medicines?: No Do you have trouble getting transportation to medical appointments?: No Do you have trouble paying your heating and electricity bill?: No Do you have trouble taking care of your child, family member or friend?: No Do you have trouble with day-to-day activities such as bathing, preparing meals, shopping, managing finances, etc.?: No Are you currently unemployed and looking for a job?: No Are you interested in more education?: No Please select the resources that you would like help with: None Currently or been in a relationship where the following occur: No concerns reported THRIVE Score: 2 RIC-7 AMB Questionnaire RIC-7 Date RIC - 7 assessed: 07/31/24 Source: Developed by Drs. Mejia Bess, Jen Erickson, Patrick Morejon and colleagues, with an educational tete from [employer]. Review of Systems Const Denies chills, Denies fatigue, Denies fever(s), Denies headache(s) and Denies weakness ENT Denies dizziness and Denies headache(s) Card Denies dyspnea Resp Denies cough, Denies dyspnea, Denies wheezing and Denies other (shortness of breath) Musc Denies numbness and Denies tingling Neuro Denies dizziness, Denies headache(s), Denies numbness, Denies tingling and Denies weakness Psych Denies anxiety and Denies depression Endo Denies fatigue Aller/Immun Denies wheezing Physical exam (Primary Care) Vital Signs: Last Vital Signs Temp 98.2 F 01/02/25 08:34 Pulse 68 01/02/25 08:34 Resp 16 01/02/25 08:34 BP 120/70 01/02/25 08:34 Pulse Ox 96 01/02/25 08:34 Oxygen Delivery Method Room Air 01/02/25 08:34 BMI result Body Mass Index 42.5 Tobacco/Smoking Status: Tobacco use Status Tobacco use date assessed 01/02/25 01/02/25 08:38 Patient Tobacco Use Status Former Tobacco user 01/02/25 08:34 e-Cigarette/Vaping Use Never Used 01/02/25 08:34 Thrive Assessment: Date of Thrive Assessment Date Thrive assessed 07/31/24 01/02/25 08:31 Currently or been in a relationship where the following occur: No concerns reported Const General: well developed; No acute distress Nutritional Appearance: well nourished and obese morbidly obese Orientation/consciousness: patient oriented x3 HENMT Head: Yes normocephalic and Yes atraumatic Eyes General: appearance normal, both eyes and all related structures Pupils: Equal, round and reactive pupils present EOM: EOMs intact bilaterally Resp Effort & Inspection: normal respiratory effort Auscultation: clear to auscultation bilaterally Cardio Rate: regular rate Rhythm: regular rhythm Heart sounds: S1 normal heart sound present, S2 normal heart sound present, no gallops, no murmurs and no rubs Neuro General: patient oriented x3 and gait normal Cranial nerves: Yes Equal, round and reactive pupils present Psych Affect: normal affect Results AMB Hemoglobin A1c AMB Hemoglobin A1c 6.1 % Last Edit by Nishi Hummel MA on 01/02/25 08:50 Results Reviewed Results Reviewed: Laboratory Last Values Hgb A1c (Clinic) 6.1 % (4.0-6.0) H 01/02/25 08:40 Coding Level of Care Code Est Pt Level 5 (00508) Diagnoses Pre-diabetes R73.03 Chronic pain G89.29 Difficulty swallowing R13.10 Hand pain M79.643 Hot flashes R23.2 Neoplasm of uncertain behavior of skin D48.5 COPD (chronic obstructive pulmonary disease) J44.9 Dermatitis of ear canal H60.549 Assessment & Plan Assessment & Plan (1) Pre-diabetes: Code(s): R73.03 - Prediabetes Category: Medical (2) Chronic pain: Code(s): G89.29 - Other chronic pain Category: Medical (3) Difficulty swallowing: Code(s): R13.10 - Dysphagia, unspecified Category: Medical (4) Hand pain: Code(s): M79.643 - Pain in unspecified hand Category: Medical (5) Hot flashes: Code(s): R23.2 - Flushing Category: Medical (6) Neoplasm of uncertain behavior of skin: Code(s): D48.5 - Neoplasm of uncertain behavior of skin Category: Medical (7) COPD (chronic obstructive pulmonary disease): Code(s): J44.9 - Chronic obstructive pulmonary disease, unspecified Category: Medical (8) Dermatitis of ear canal: Code(s): H60.549 - Acute eczematoid otitis externa, unspecified ear Category: Medical Plan A1c 6.1%. Still in pre diabetes range Encouraged diet low in sugars and starches Encouraged weight loss and exercise as tolerated Ongoing chronic neck and back pain. Continue celecoxib. She is tolerating this. Continue duloxetine Referred to pain management Check x-ray of C-spine Also has tingling at right forearm and hand, likely secondary to nerve impingement and C-spine. Currently no weakness. Checking x-ray of C-spine Referred to pain management She will let know this worsening Frequent hot flashes Has upcoming appointment with chemical machine tender and discuss She can also discuss Veozah for treatment of hot flashes. COPD: Lungs are clear today. Does have a cough though this was not apparent in her office visit today. Continue current inhaled medications Difficulty swallowing: Check modified barium swallow Small patch of dermatitis or allergic irritation in left ear canal Can use small amount of hydrocortisone cream and also baby oil. Orders: Orders AMB Hemoglobin A1c Today R73.03 - Prediabetes FL Modified Barium Swallow Today R13.10 - Dysphagia, unspecified XR cervical spine 2V Today M54.2 - Cervicalgia Referrals Dermatology Referral D48.5 - Neoplasm of uncertain behavior of skin Pain Management Referral M54.9 - Dorsalgia, unspecified Medications: Changed From duloxetine 30 mg PO BID 30 days 60 caps 1RF To duloxetine 30 mg PO BID 180 caps 2RF 90 days Refilled celecoxib 200 mg PO BID PRN 60 caps 3RF pain 30 days
[2025-01-02 08:34] VITALS: BP 120/70; PULSE 68; RESP 16; TEMP 36.8; O2SAT 96; BMI 42.5
--- OUTSIDE RECORDS SUMMARY | 2025-01-02 08:42 | XMS_ITS | Clinical Summary ---
Author Organization [address] [place] [address] [place] [phone] Phone Care Team Providers Care Grab Hooker Name Role Phone Brian Arguelles MD Primary Care Provider [phone] Allergies Active Allergy Reactions Criticality Noted Date [...] Problem Noted Date Diagnosed Date Atrial fibrillation (CMS/[facility] V24, CMS/[facility] V28) 1 07/04/2019 Overview (04/16/2024): Atrial fibrillation Palpitations 05/03/2020 Overview (04/16/2024): Palpitations Encounters Date Type Department Care Team Description 12/16/2024 3:15 AM EDT Ancillary Procedure [facility] Cardiology [facility] [address] [place] [address] 12/01/2024 4:25 PM EDT Ancillary Procedure [facility] Cardiology [facility] [address] [place] [address] 10/20/2024 11:20 AM EDT Ancillary Procedure [facility] Cardiology [facility] [address] [place] [address] from Last 3 Months Family History Medical [...] Panel) 05/02/2022 Colorectal Cancer Screening: Colonoscopy 05/02/2022 Falls Risk Assessment 05/02/2022 Hepatitis C Screening 05/02/2022 Osteoporosis Screening (Bone Density Screening) 05/02/2022 Social Influencers of Health Screening 05/02/2022 Depression Screening 05/24/2024 Influenza Vaccine (#1) 2025 , 02/04/2022, 02/07/2021, Additional history exists DTaP,Tdap,and Td [...] this topic Medical Devices Implanted Type Area Grainer Machine Device Identifier Shelf Expiration Date Model / Serial / Lot Monitor Cardiac Insert Lux Dx Ii+ - [id number] - [id number] Implanted:Qty: 1 on 08/11/2024 at [facility] Cardiac Loop Recorder N/A: Chest [employer] MGMT 12/08/2025 M312 / [id number] / Bsci-Crm [id number] Implanted:08/11 (Quantity not on file) Cardiac Loop Recorder [employer] MGMT [id number] / [id number] / Procedures Procedure Name Priority Date/Time Associated Diagnosis Comments CARDIAC DEVICE CHECK- REMOTE- MURJ Routine 12/16/2024 3:11 AM EDT CARDIAC DEVICE CHECK- REMOTE- MURJ Routine 12/01/2024 4:23 PM EDT CARDIAC DEVICE CHECK- REMOTE- MURJ Routine 10/20/2024 11:18 AM EDT from Last 3 Months Results * Cardiac device check - Remote- MURJ (12/16/2024 3:11 AM EDT) Only the most recent of3 resultswithin the time period is included. Date Time Interrogation Session [id number] CV DEVICE CHECK Type Interrogation Session Remote Scheduled CV DEVICE CHECK Implantable Pulse Generator Grainer Machine BSX CV DEVICE CHECK Implantable Pulse Generator Type ILR CV DEVICE CHECK Implantable Pulse Generator Model M312 CV DEVICE CHECK Implantable Pulse Generator Serial Number [id number] CV DEVICE CHECK Implantable Pulse Generator Implant Date 20240811 CV DEVICE CHECK Battery Status Beginning of Service CV DEVICE CHECK Atrial Tachy Statistic AT/AF [place] Percent 0.00 CV DEVICE CHECK Date of Service 2025-01-01 CV DEVICE CHECK Anatomical Region Laterality Modality Device Interroga tion 12/14/2024 2:43 AM EDT Impressions 12/15/2024 1:04 PM EDT Normal Remote: No Events * This is a normal remote diagnostic device check * Alerts or events: None * Battery data was reviewed * Battery status: TESSA, * Presenting rhythm reviewed * Heart Rate Histograms reviewed Narrative Procedure Note Jay Constantino MD - 12/16/2024 IMPRESSION: Normal Remote: No Events * This is a normal remote diagnostic device check * Alerts or events: None * Battery data was reviewed * Battery status: TESSA, * Presenting rhythm reviewed * Heart Rate Histograms reviewed Jay Constantino MD CV IMPLANTABLE CARDIAC DEVICE PROCEDURES Final Result from Last 3 Months Insurance [facility] Member Subscriber Plan / Payer (Ef fective 2022-Present) Name:BRITTA DAVIS Relation to Subscriber:Self Name:Britta Davis Payer ID:[id number] Group ID:[id number] Type:Not on file Address: [place] [address] [address] [phone] Care Teams Grab Hooker Relationship Specialty Start Date End Date Brian Arguelles MD [address] [place] [address] Dr Nils [place] PCP - General 06/01/23
== END 2025-01-02 09:15 | disposition home or self-care (01) ==
LOC: HO.HMCFM 08:27
PROVIDERS: PCP Family Medicine; Visit Provider Family Medicine
DX: R73.03 Prediabetes (principal); G89.29 Other chronic pain; J44.9 Chronic obstructive pulmonary disease, unspecified; R13.10 Dysphagia, unspecified; R23.2 Flushing; D48.5 Neoplasm of uncertain behavior of skin; H60.542 Acute eczematoid otitis externa, left ear

== ENCOUNTER → 2025-01-02 08:26 | Outpatient (BNVA) | payer OTHER, SELFPAY | PROVIDERS: PCP Family Medicine; Visit Provider Family Medicine | DX: R73.03 Prediabetes (principal); R13.10 Dysphagia, unspecified; M79.643 Pain in unspecified hand; R23.2 Flushing; D48.5 Neoplasm of uncertain behavior of skin; J44.9 Chronic obstructive pulmonary disease, unspecified; H60.549 Acute eczematoid otitis externa, unspecified ear; M54.2 Cervicalgia; M54.9 Dorsalgia, unspecified; G89.29 Other chronic pain | CPT/HCPCS: 83036; 99212 ==

== ENCOUNTER 2025-01-09 06:58 | Outpatient (REF) | payer OTHER, SELFPAY ==
--- NOTE | ~2025-01-09 | XR_ITS ---
EXAMINATION: XR CERVICAL SPINE 4-5 VIEWS HISTORY: M54.2 - Cervicalgia COMPARISON: There are no prior studies available for comparison. FINDINGS: AP, lateral, swimmer's, and open-mouth odontoid views of the cervical spine are submitted. Osseous mineralization is normal. Seven cervical vertebral bodies are identified maintaining normal height without evidence of fracture or subluxation. There is straightening of the normal cervical lordosis. There is moderate degenerative disc disease from C4 through T1 with disc space narrowing and osteophyte formation. There is osteoarthritis of the facet joints. The odontoid and lateral masses of C1 are intact. There is no prevertebral soft tissue swelling. XR/XR cervical spine 4V IMPRESSION: Straightening of the normal cervical lordosis. Degenerative changes as described. Electronically signed by: Mejia Kumar MD 01/09/2025 07:32 AM EDT
--- OUTSIDE RECORDS SUMMARY | 2025-01-09 07:01 | XMS_ITS | Clinical Summary ---
Author Organization [address] [place] [address] [place] [phone] Phone Care Team Providers Care Service Officer Name Role Phone Brian Arguelles MD Primary [...] Problem Noted Date Diagnosed Date Atrial fibrillation (CMS/[facility] V24, CMS/[facility] V28) 1 07/04/2019 Overview (04/16/2024): Atrial fibrillation Palpitations 05/03/2020 Overview (04/16/2024): Palpitations Encounters Date Type Department Care Team Description 12/16/2024 3:15 AM EDT Ancillary Procedure [facility] [address] [place] [address] 12/01/2024 4:25 PM EDT Ancillary Procedure [facility] [address] [place] [address] 10/20/2024 11:20 AM EDT Ancillary Procedure [facility] [address] [place] [address] from Last 3 Months Family History Medical [...] this topic Medical Devices Implanted Type Area Chiseler Head Device Identifier Shelf Expiration Date Model / Serial / Lot Monitor Cardiac Insert Lux Dx Ii+ - [id number] - [id number] Implanted:Qty: 1 on 08/11/2024 at [facility] Cardiac Loop Recorder N/A: Chest [employer] MGMT 12/08/2025 M312 / [id number] / Bsci-Crm [id number] Implanted:08/11 (Quantity not on file) Cardiac Loop Recorder [employer] MGMT M312 / [id number] / Procedures Procedure Name Priority Date/Time Associated [...] period is included. Date Time Interrogation Session [id number] CV DEVICE CHECK Type Interrogation Session Remote Scheduled CV DEVICE CHECK Implantable Pulse Generator Chiseler Head BSX CV DEVICE CHECK Implantable Pulse Generator Type ILR CV DEVICE CHECK Implantable Pulse Generator Model M312 CV DEVICE CHECK Implantable Pulse Generator Serial Number [id number] CV DEVICE CHECK Implantable Pulse Generator Implant Date 20240811 CV DEVICE CHECK Battery Status Beginning of Service CV DEVICE CHECK Atrial Tachy Statistic AT/AF [place] Percent 0.00 CV DEVICE CHECK Date of [...] Final Result from Last 3 Months Insurance [facility] Member Subscriber Plan / Payer (Ef fective 2022-Present) Name:BRITTA DAVIS Relation to Subscriber:Self Name:Britta Davis Payer ID:[id number] Group ID:[id number] Type:Not on file Address: [place] [address] [address] [address] [phone] Care Teams Service Officer Relationship Specialty Start Date End Date Brian Arguelles MD [address] [place] [address] Dr Nils [place] PCP - General 06/01/23
== END 2025-01-09 06:59 | disposition home or self-care (01) ==
LOC: HO.XRAY 06:58
PROVIDERS: PCP Family Medicine; Visit Provider Family Medicine
DX: M54.2 Cervicalgia (principal)
CPT/HCPCS: 72050

== ENCOUNTER → 2025-01-09 07:03 | Outpatient (BNV) | payer OTHER, SELFPAY | PROVIDERS: PCP Family Medicine; Visit Provider Radiology Diagnostic Radiology | DX: M50.30 Other cervical disc degeneration, unspecified cervical region (principal) | CPT/HCPCS: 72050 ==

== ENCOUNTER 2025-01-19 08:31 | Outpatient (AMB) | payer OTHER, SELFPAY ==
--- OUTSIDE RECORDS SUMMARY | 2025-01-17 17:55 | XMS_ITS | Encounter Summary ---
Author Organization [facility] Address [address] [place] [address] Care Team Providers Care Curling Machine Operator Name Role Phone Brian Arguelles MD Primary Care Provider [phone] Encounter Details Date Type Department Care Team (Late st Contact Info) Description 01/17/2025 5:55 PM EDT Ancillary Procedure [facility] [address] [facility] [address] [place] [address] Arrived Social History Tobacco Use Types Packs/Day Years [...] Orientation Straight 08/11/2024 7: 48 AM EDT documented as of this encounter Plan of Treatment Not on file documented as of this encounter Procedures Procedure Name Priority Date/Time Associated Diagnosis Comments CARDIAC DEVICE CHECK- REMOTE- MURJ Routine 01/17/2025 5:51 PM EDT documented in this encounter Results * Cardiac device check - Remote- MURJ (01/17/2025 5:51 PM EDT) Date Time Interrogation Session [id number] CV DEVICE CHECK Type Interrogation Session Remote Scheduled CV DEVICE CHECK Implantable Pulse Generator M48 M60 Armor Crewman BSX CV DEVICE CHECK Implantable Pulse Generator Type ILR CV DEVICE CHECK Implantable Pulse Generator Model M312 CV DEVICE CHECK Implantable Pulse Generator Serial Number [id number] CV DEVICE CHECK Implantable Pulse Generator Implant Date 20240811 CV DEVICE CHECK Battery Status Beginning of Service CV DEVICE CHECK Atrial Tachy Statistic AT/AF [place] Percent 0.00 CV DEVICE CHECK Date of Service 2025-02-01 CV DEVICE CHECK Anatomical Region Laterality Modality Device Interroga tion 01/15/2025 12:4 7 AM EDT Impressions 01/17/2025 5:35 PM EDT Normal Remote: No Events * This is a normal remote diagnostic device check * Alerts or events: None * Battery data was reviewed * Battery status: TESSA, * Presenting rhythm reviewed * Heart Rate Histograms reviewed Narrative Procedure Note Jay Constantino MD - 01/17/2025 IMPRESSION: Normal Remote: No Events * This is a normal remote diagnostic device check * Alerts or events: None * Battery data was reviewed * Battery status: TESSA, * Presenting rhythm reviewed * Heart Rate Histograms reviewed Jay Constantino MD CV IMPLANTABLE CARDIAC DEVICE PROCEDURES Final Result documented in this encounter Visit Diagnoses Not on filedocumented in this encounter Care Teams Curling Machine Operator Relationship Specialty Start Date End Date Brian Arguelles MD [address] [place] [address] Dr Nils [place] PCP - General 06/01/23 documented as of this encounter
--- NOTE | 2025-01-19 08:40 | A.OFFVIS_ITS ---
Vital Signs 3 01/19/25 08:49 Height 5 ft 6 in Weight 262 lb BMI 42.3 BP 138/70 Blood Pressure Location Rt brachial Position Sitting Pulse 66 Pulse Source Pulse Oximeter Pulse Oximetry (%) 98 Oxygen Delivery Method Room Air Intake Visit Reasons: Dorsalgia, unspecified Intake Note: Pain today 11/30 Chaperone Required: No Accompanied by: Self / Same As Patient Allergies amoxicillin Allergy (Unknown, Verified 01/19/25 08:47) Hives azithromycin (Zithromax) Allergy (Unknown, Verified 01/19/25 08:47) Hives ciprofloxacin (Cipro) Allergy (Unknown, Verified 01/19/25 08:47) Hives codeine Allergy (Unknown, Verified 01/19/25 08:47) Hives Sulfa (Sulfonamide Antibiotics) Allergy (Unknown, Verified 01/19/25 08:47) Hives epinephrine Adverse Reaction (Severe, Verified 01/19/25 08:47) Anaphylaxis naproxen Adverse Reaction (Unknown, Verified 01/19/25 08:47) Gastrointestinal Upset Clindamycin HCl Allergy (Unknown, Uncoded 01/02/25 08:32) Hives Erythromycin Allergy (Unknown, Uncoded 01/02/25 08:32) Hives HPI Comments Details: The patient is a 69-year-old female presenting with chronic lower back pain. The pain has been persistent for approximately two years, with no specific injury or falls reported during this period. The patient describes the pain as constant, with a severity level of 7 out of 10, escalating to 10 out of 10 in the evenings and reducing to 5 out of 10 in the mornings. The pain radiates to the hips and is described as sore, hurting, aching, heavy, dull, pulling, and tugging. It significantly affects daily activities, functioning, and sleep, and is exacerbated by prolonged standing and certain movements such as bending forward and twisting. The patient has a history of osteoarthritis, which was confirmed at [facility]. Previous interventions include physical therapy, which did not result in improvement, and the use of a TENS unit at home. The patient has also tried naproxen, which was effective for pain relief but caused gastrointestinal discomfort, leading to a switch to Celebrex. The patient has a history of atrial fibrillation, managed with metoprolol, and has a loop recorder implanted. She has not taken blood thinners for several years. The patient also reports a history of sleep apnea, obesity with a BMI of 42.3, and prediabetes with A1C=6.1, with efforts to lose weight through dietary changes. The patient has a history of smoking, having quit 13 years ago, and a history of alcohol use, which ceased 25 years ago. She denies current use of alcohol and smoking but reports occasional use of cannabis. The patient has cervical spondylosis and facet arthropathy, with imaging from 2016 showing consistent findings with current symptoms. - Onset: Approximately two years ago - Quality: Sore, hurting, aching, heavy, dull, pulling, tugging, tiring - Location: Lower back, radiating to both hips - Severity: 7/10 in general, 10/10 in evenings, 5/10 in mornings - Exacerbating factors: Prolonged standing, bending forward, twisting - Relieving factors: Reclining with a pillow - Interference: Affects daily activities, functioning, and sleep - Affect: Pain impacts daily activities and sleep, causing frustration and limitation in activities such as cooking and social gatherings. - Analgesia: Currently using Celebrex, previously used naproxen which caused gastrointestinal issues. - Adverse Effects: Gastrointestinal discomfort from naproxen, no adverse effects reported from Celebrex yet. - Activities of Daily Living: Pain limits ability to perform household tasks and participate in social activities. - Aberrant Drug Related Behaviors: No evidence of medication misuse or abuse reported. Oswestry Low Back Pain Disability Score=27 [facility] Medical History History of electrophysiologic study Routine physical examination Chronic pain Paroxysmal atrial flutter [place] on CPAP Obesity Insomnia Hyperglycemia GERD (gastroesophageal reflux disease) Diverticular disease Chronic rhinitis COPD (chronic obstructive pulmonary disease) Depression Anxiety Surgical History History of gynecologic surgery History of hysteroscopy H/O section History of tonsillectomy History of endoscopic gastrointestinal surgery Social History Household Members: Children Housing: House Alcohol intake: current Alcohol intake frequency: 3 or more drinks per day Alcohol type: beer, wine and hard liquor Patient Tobacco Use Status: Former Tobacco user Cigarette Packs Per Day: 1.5 Cigarettes Per Day: 20 Years Smoked: 40 e-Cigarette/Vaping Use: Never Used Second Hand Smoke Exposure: Yes service: No Current occupational status: retired Current occupational exposures/hazards: No Sexual orientation: Unable to collect Gender identity: Unable to collect Cognitive needs: No Hearing needs: No Vision needs: Yes (wears glasses) Review of Systems Const Details: - Musculoskeletal: Reports chronic lower back pain, radiating to hips, exacerbated by movement. - Neurological: Reports numbness in hand, denies numbness or tingling in legs, bladder or bowel dysfunction or saddle anesthesia. - Respiratory: Reports history of COPD, denies current dyspnea or use of supplemental oxygen. - Cardiovascular: Reports history of atrial fibrillation, denies current palpitations or chest pain. - Endocrine: Reports prediabetes, A1C=6.1, denies current symptoms of hyperglycemia. - General: Reports obesity, BMI 42.3, denies recent weight gain. All systems reviewed & are unremarkable except as noted in HPI and below Physical Exam Vital Signs: Last Vital Signs Pulse 66 01/19/25 08:49 BP 138/70 01/19/25 08:49 Pulse Ox 98 01/19/25 08:49 Oxygen Delivery Method Room Air 01/19/25 08:49 BMI result Body Mass Index 42.3 General: Appears afebrile. Morbidly obese. Alert and oriented. Mood and affect appropriate. Follows and participates in conversation appropriately. Respiratory effort is unlabored. No cough. Able to transition from sit to stand unassisted. Ambulates with bilaterally normal heel strike and toe off. General: Yes no CVA tenderness Back/Spine/Pelvis Other: Limited lumbar ROM due to pain. Demonstrates 5/5 strength of quadriceps bilaterally as well as flexion/dorsiflexion of bilateral feet against resistance. 2+ pedal pulses bilaterally. Axial rotations and extension reproduces mild to moderate pain, flexion forward and bending reproduces moderate to severe pain. Straight leg rise with dorsiflexion negative bilaterally. +2 patellar and +1 achilles reflexes bilaterally. Facet loading test positive bilaterally. Dorene sign, Jeff?s and Stinchfield tests are negative bilaterally. No groin pain with I/E hip rotations. Valsalva maneuver negative. Back: no CVA tenderness Cervical Spine: cervical ROM normal, cervical muscular tenderness, pain with cervical ROM and No Cervical spine tenderness Thoracic/Lumbar Spine: thoracic and lumbar spine normal to inspection, No Thoracic/lumbar spine scar(s), Lasegue's sign negative, straight leg raise negative bilaterally, pain with thoraco-lumbar ROM, paraspinal muscle tenderness, thoraco-lumbar ROM limited, No thoracic spinal tenderness and lumbar spinal tenderness (L4-S1) Pelvis: buttock tenderness and no sciatic notch tenderness Sacroiliac joints: bilaterally nontender Extrem General: Yes capillary refill normal, Yes no clubbing, cyanosis or edema and Yes no calf tenderness Results Reviewed Results Reviewed: Cervical, thoracic, lumbar spine xrays 06/18/2015 Assessment & Plan Assessment & Plan (1) Vertebrogenic low back pain: Code(s): M54.51 - Vertebrogenic low back pain Category: Medical (2) Chronic low back pain: Code(s): M54.50 - Low back pain, unspecified; G89.29 - Other chronic pain Category: Medical (3) Lumbar degenerative disc disease: Code(s): M51.369 - Other intervertebral disc degeneration, lumbar region without mention of lumbar back pain or lower extremity pain Category: Medical (4) Vertebrogenic low back pain: Code(s): M54.51 - Vertebrogenic low back pain Category: Medical (5) Chronic low back pain: Code(s): M54.50 - Low back pain, unspecified; G89.29 - Other chronic pain Category: Medical (6) Lumbosacral spondylosis: Code(s): M47.817 - Spondylosis without myelopathy or radiculopathy, lumbosacral region Category: Medical Plan I discussed with the patient the plan to perform an MRI to further evaluate discogenic pain components associated with significant low back pain with flexion forward and bending. We also talked about the potential for radiofrequency ablation as a treatment option to address axial low back pain. I explained the use of lidocaine patches and heat application for symptomatic relief and advised on the importance of continuing weight loss efforts. All questions and concerns have been answered and patient agreed with the treatment plan. Follow up for MRI/xray results and sooner as needed. Patient was informed and verbally consented to the use of an ambient scribe for clinic note documentation during this visit. Orders: Orders 2 MR lumbar spine wo con Today G89.29 - Other chronic pain, M47.817 - Spondylosis without myelopathy or radiculopathy, lumbosacral region, M51.369 - Other intervertebral disc degeneration, lumbar region without mention of lumbar back pain or lower extremity pain, M54.50 - Low back pain, unspecified, M54.51 - Vertebrogenic low back pain XR lumbar spine 4V min Today G89.29 - Other chronic pain, M47.817 - Spondylosis without myelopathy or radiculopathy, lumbosacral region, M51.369 - Other intervertebral disc degeneration, lumbar region without mention of lumbar back pain or lower extremity pain, M54.50 - Low back pain, unspecified, M54.51 - Vertebrogenic low back pain Medications: New 2 lidocaine 5% 1 patch topical DAILY 30 ea 0RF pain 30 days G89.29 - Other chronic pain, M47.817 - Spondylosis without myelopathy or radiculopathy, lumbosacral region, M54.50 - Low back pain, unspecified, M54.51 - Vertebrogenic low back pain Coding Level of Care Code New Pt Level 4 (63037) Diagnoses Vertebrogenic low back pain M54.51 Chronic low back pain M54.50; G89.29 Lumbar degenerative disc disease M51.369 Lumbosacral spondylosis M47.817
[2025-01-19 08:49] VITALS: BP 138/70; PULSE 66; O2SAT 98; BMI 42.3
--- OUTSIDE RECORDS SUMMARY | 2025-01-19 09:31 | XMS_ITS | Clinical Summary ---
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 V24, CMS/[facility] V28) 1 07/04/2019 Overview (04/16/2024): Atrial fibrillation Palpitations 05/03/2020 Overview (04/16/2024): Palpitations Encounters Date Type Department Care Team Description 01/17/2025 5:55 PM EDT Ancillary Procedure [facility] [address] [place] [address] Arrived 12/16/2024 3:15 AM EDT Ancillary Procedure [facility] [address] [place] [address] 12/01/2024 4:25 PM EDT Ancillary Procedure [facility] [address] [place] [address] 10/20/2024 11:20 AM EDT Ancillary Procedure [facility] [address] [place] [address] from Last 3 Months Family History Medical [...] of Health Screening 05/02/2022 Depression Screening 05/24/2024 DTaP,Tdap,and Td Vaccines (4 - Td or Tdap) 08/17/2034 08/17/2024, 01/22/2017, 07/10/2008 MMR Vaccines Aged Out 02/10/2010 No longer eligi ble based on patient's age to complete this topic Pneumococcal Vaccine: 50+ Years Completed 09/23/2022, 08/17/2014, 06/30/2011 RSV Immunization Adult Patients Completed 02/02/2023 COVID-19 Vaccine Completed 08/17/2024, 06/2023, 08/06/2023, Additional history exists Influenza Vaccine Completed 01/11/2025, , 02/04/2022, Additional history exists HIB Vaccines Aged Out [...] this topic Medical Devices Implanted Type Area [employer] Helper Device Identifier Shelf Expiration Date Model / Serial / Lot Monitor Cardiac Insert Lux Dx Ii+ - [id number] - [id number] Implanted:Qty: 1 on 08/11/[address] [facility] Cardiac Loop Recorder N/A: Chest [employer] MGMT 12/08/2025 M312 / [id number] / Bsci-[id number] Implanted:08/11 (Quantity not on file) Cardiac Loop Recorder [employer] [id number] / [id number] / Procedures Procedure Name Priority Date/Time Associated Diagnosis Comments CARDIAC DEVICE CHECK- REMOTE- MURJ Routine 01/17/2025 5:51 PM EDT CARDIAC DEVICE CHECK- REMOTE- MURJ Routine 12/16/2024 3:11 AM EDT CARDIAC DEVICE CHECK- REMOTE- MURJ Routine 12/01/2024 4:23 PM EDT CARDIAC DEVICE CHECK- REMOTE- MURJ Routine 10/20/2024 11:18 AM EDT from Last 3 Months Results * Cardiac device check - Remote- MURJ (01/17/2025 5:51 PM EDT) Only the most recent of4 resultswithin the time period is included. Date Time Interrogation Session [id number] CV DEVICE CHECK Type Interrogation Session Remote Scheduled CV DEVICE CHECK Implantable Pulse Generator [employer] Helper BSX CV DEVICE CHECK Implantable Pulse Generator Type ILR CV DEVICE CHECK Implantable Pulse Generator Model M312 CV DEVICE CHECK Implantable Pulse Generator Serial Number [id number] CV DEVICE CHECK Implantable Pulse Generator Implant Date 20240811 CV DEVICE CHECK Battery Status Beginning of Service CV DEVICE CHECK Atrial Tachy Statistic AT/AF [place] Percent 0.00 CV DEVICE CHECK Date of [...] Final Result from Last 3 Months Insurance [facility] Member Subscriber Plan / Payer (Ef fective 2022-Present) Name:BRITTA DAVIS Relation to Subscriber:Self Name:Britta Davis Payer ID:[id number] Group ID:[id number] Type:Not on file Address: [place] [address] [address] [id number] Care Teams Electrical Maintenance Mechanic Relationship Specialty Start Date End Date Brian Arguelles MD [address] [place] [address] Dr Nils [place] PCP - General 06/01/23
== END 2025-01-19 09:27 | disposition home or self-care (01) ==
LOC: HO.PMC 08:32
PROVIDERS: PCP Family Medicine; Visit Provider Nurse Practitioner Family
DX: M54.51 Vertebrogenic low back pain (principal); M54.50 Low back pain, unspecified; G89.29 Other chronic pain; M51.369 Other intervertebral disc degeneration, lumbar region without mention of lumbar back pain or lower extremity pain; M47.817 Spondylosis without myelopathy or radiculopathy, lumbosacral region
CPT/HCPCS: 99204

== ENCOUNTER → 2025-01-19 08:31 | Outpatient (BNVA) | payer OTHER, SELFPAY | PROVIDERS: PCP Family Medicine; Visit Provider Nurse Practitioner Family | DX: M54.51 Vertebrogenic low back pain (principal); M54.50 Low back pain, unspecified; G89.29 Other chronic pain; M51.369 Other intervertebral disc degeneration, lumbar region without mention of lumbar back pain or lower extremity pain; M47.817 Spondylosis without myelopathy or radiculopathy, lumbosacral region | CPT/HCPCS: 99202 ==

== ENCOUNTER 2025-01-30 14:01 | Outpatient (REF) | payer OTHER, SELFPAY ==
--- NOTE | ~2025-01-30 | FL_ITS ---
EXAMINATION: XR BARIUM SWALLOW CLINICAL INFORMATION: Dysphagia. COMPARISON: None available. TECHNIQUE: Routine modified barium swallow was performed in the lateral fluoroscopy with patient standing in presence of speech therapist and oral administration of various consistencies of food coated with barium. FINDINGS: On oral administration of thick barium, nectar barium and barium coated crackers there is normal propagation bolus from the oral cavity, pharynx into esophagus. No laryngeal penetration or aspiration seen. No retention of solids or liquids seen in the valleculae or piriform sinuses. FLUOROSCOPY TIME: 1 minute 10 seconds DOSE AREA PRODUCT: 1280 uGy-m2 (microgray-meter squared) FL/FL Modified Barium Swallow IMPRESSION: Unremarkable modified barium swallow exam. Electronically signed by: Kyle Gaston MD 01/30/2025 04:08 PM EDT
--- NOTE | 2025-01-30 16:18 | MHC.SL.IMP ---
Date of Plan of Treatment: 01/30/25 Onset of Symptoms/Illness: 01/02/25 Date Treatment Started: 01/30/25 Admitting Diagnosis: GERD, diverticular disease, LIBERTY, COPD, chronic rhinitis Primary Speech & Language Diagnosis: R13.13 Pharyngeal Phase Dysphagia Reason for Today's Visit: 67841 Modified Barium Swallow Study Pre-evaluation Dietary Consistencies: Regular Pre-evaluation Liquid Consistency: Thin Pre-evaluation Medication Administration: Whole with Liquid Medical History: Modified Barium Swallow Study Fluoroscopic Evaluation of Swallowing Function CPT Code 27378 Evaluation Year: 2024 Reason for Study: Patient reporting difficulty swallowing. Referring Physician: Brian Arguelles MD Evaluating Clinician: Janie Leung MA, CCC-[facility] Study Number: 1 Patient Name: Britta Ford Status: Outpatient, Ambulatory Age: 69 Sex: Female Medical History Medical History History of electrophysiologic study Routine physical examination Chronic pain Paroxysmal atrial flutter LIBERTY on CPAP Obesity Insomnia Hyperglycemia GERD (gastroesophageal reflux disease) Diverticular disease Chronic rhinitis COPD (chronic obstructive pulmonary disease) Depression Anxiety Surgical History History of gynecologic surgery History of hysteroscopy H/O section History of tonsillectomy History of endoscopic gastrointestinal surgery Current (pre-evaluation) Intake/Diet: Route: PO Diet Grade: Regular Liquid Consistencies: Thin Pre-Study Functional Oral Intake Scale (FOIS): 7- Total oral intake with no restrictions Pain: None reported at time of study SUBJECTIVE: Patient is a 69 year old female referred for a modified barium swallow study by her primary care provider. Patient denies coughing or choking and says she has no trouble swallowing liquids. Patient reports feeling food stuck in the throat and/or mid-chest. She needs to drink liquids with food to relieve this sensation. Patient denies pain with swallowing. She does have history of LIBERTY on CPAP, GERD, diverticular disease, COPD, and chronic rhinitis. Food and Liquid Trials: Oral Impairment: Lip Closure: 0=No labial escape Oral Impairment: Tongue Control During Bolus Hold: 1=Escape to lateral buccal cavity/floor of mouth (FOM) Oral Impairment: Bolus Preparation/Mastication: 0=Timely and efficient chewing and mashing Oral Impairment: Bolus Transport/Lingual Motion: 0=Brisk tongue motion Oral Impairment: Oral Residue: 1=Trace residue lining oral structures Oral Impairment:Initiation of Pharyngeal Swallow: 0=Bolus head at posterior angle of ramus (first hyoid excursion) Pharyngeal Impairment: Soft Palate Elevation: 0=No bolus between soft palate (SP)/pharyngeal wall (PW) Pharyngeal Impairment: Laryngeal Elevation: 1=Partial thyroid cartilage/arytenoids to epiglottic petiole movement Pharyngeal Impairment: Anterior Hyoid Excursion: 1=Partial anterior movement Pharyngeal Impairment: Epiglottic Movement: 0=Complete inversion Pharyngeal Impairment: Laryngeal Vestibular Closure:: 0=Complete: no air/contrast in laryngeal vestibule Pharyngeal Impairment: Pharyngeal Stripping Wave: 0=Present: complete Pharyngeal Impairment: Pharyngeal Contraction: Did not test Pharyngeal Impairment: Pharyngoesophageal Segment Openin=Partial distention/partial duration: partial obstruction of flow Pharyngeal Impairment: Tongue Base (TB) Retraction: 0=No contrast between tongue base and posterior pharyngeal wall Pharyngeal Impairment: Pharyngeal Residue: 1=Trace residue within or on pharyngeal structures Pharyngeal Impairment: Esophageal Clearance Upright Position: 0=Complete clearance: esophageal coating Impressions and Recommendations OBJECTIVE: Time-out: performed at 14:45 Evaluation Start: 14:30; Stop: 14:35 Viewing Planes: LAT & AP Contrast: MBSImP? Standardized Protocol using commercially prepared, standardized Barium viscosities, including: Varibar? THIN LIQUID (40% w/v, <15 cps) , Varibar? PUDDING (40% w/v, <9672-8479 cps) , 1/2 Shortbread Cookie (1 x1 x.25 ) MBSImP ID: [id number] [facility] Results: Lip closure for intraoral bolus containment resulted in no labial escape. Tongue control during bolus hold allowed bolus escape to the lateral buccal cavity/floor of mouth. Bolus preparation and mastication resulted in timely and efficient chewing and mashing. Bolus transport/lingual motion was with brisk tongue motion. Oral residue was a trace, lining oral structures. Initiation of the pharyngeal swallow occurred as the bolus head reached the posterior angle of the mandibular ramus. Soft palate elevation resulted in no bolus between the soft palate and the pharyngeal wall. Laryngeal elevation was decreased, with partial superior movement of the thyroid cartilage/partial approximation of the arytenoids to the epiglottic petiole. Anterior hyoid excursion demonstrated partial anterior movement. Epiglottic movement resulted in complete inversion. Laryngeal vestibular closure was complete, as indicated by no air or contrast within the laryngeal vestibule at the height of the swallow. Pharyngeal stripping wave was present and complete. Pharyngeal contraction could not be determined due to logistical reasons not related to physiologic impairment. Pharyngoesophageal segment opening demonstrated partial distension/partial duration, with partial obstruction of bolus flow. Tongue base retraction allowed no contrast between the retracted tongue base and the posterior pharyngeal wall. Pharyngeal residue was a trace within or on pharyngeal structures. Esophageal clearance in the upright position was complete, with only a coating of contrast, if any. Oral Impairment Score: 1 Pharyngeal Impairment Score: 3 (absence of score, component 13) Esophageal Impairment Score: 0 Laryngeal Penetration and Aspiration: Neither penetration nor aspiration was observed in today's study with Cookie, Pudding-thick, Thin. ASSESSMENT: This exam was performed by the radiologist and the speech pathologist. Patient was standing for lateral and AP views. She fed herself independently and trialed the following consistencies: -Thin liquid (via individual cup sips & sequential cup sips) -Puree (mixture applesauce w/ barium pudding) -Regular (shortbread cookie coated w/ barium pudding) Good lip closure with no anterior loss of bolus. There was contrast escaping to the floor of mouth, but no premature posterior spillage. Mastication was timely and efficient. Timely posterior bolus transport and pharyngeal swallow trigger. No evidence of nasopharyngeal reflux. Partial laryngeal elevation with partial anterior hyoid excursion, complete epiglottic inversion, and complete laryngeal vestibular closure. No evidence of aspiration or penetration during this exam. Trace residue on the base of tongue and in the valleculae cleared on subsequent swallows. Note partial distention through the pharyngoesophageal segment opening Liquid Intake Recommendation: Thin Dietary Recommendations: Regular Medication Administration: Whole with Liquid Please contact the pharmacy regarding appropriate crushable or liquid drug formulations that are available whenever modified delivery is recommended. Compensatory Strategies Recommended: Sitting Upright (90 deg), Small Bites and Sips, Alternate Liquids/Solids, Rate of Ingestion Change Recommendation for Speech Therapy: NA:Typical Evaluation Text Comment: Intake Recommendations: Route: PO Diet Grade: Regular Liquid Consistencies: Thin Post-Study Functional Oral Intake Scale (FOIS): 7- Total oral intake with no restrictions No evidence of aspiration or penetration during this exam. Patient did report sensation that something was sticking in her throat after the exam, though imaging showed complete clearance of the oral and pharyngeal cavities. Note CP bar. Suggested Referrals: The patient might benefit from a referral to: Gastroenterology Indication for Referral: Hx GERD, patient reporting globus sensation, MBSS showing good clearance, note CP bar Therapy Recommendations: Diet modification and speech intervention are not warranted at this time. Oral phase was unremarkable. Good airway protection, with no evidence of aspiration or penetration on solid and liquid trials. There did appear to be a CP bar, which may be contributing to patient?s globus sensation. Additionally, patient does have documented history of GERD, for which patient reports taking over the counter medication to manage. When inquired about whether patient is actively followed by a GI specialist, patient stated she may have seen a GI specialist in the past, but does not believe she does now. She also expressed hesitancy with seeing yet another specialist. [facility] advised if patient?s symptoms persist, she may benefit from a GI consult for management of GERD. Clinician - Supplemental, Miscellaneous Communication: It is important to note MBSS objective studies are snapshots in time and Patient function might vary with factors such as time of day or concomitant medical conditions. For this reason, the final treatment plan for this patient should rest with their medical care team. Additional recommendations should be considered with the totality of the Patient in mind. Thank for the opportunity to participate in the care of this patient. If you have any questions about the content of this report, please contact the [facility] at [facility]. Education: Education regarding findings from today's study and plans for therapy were provided to Patient only through Verbal Instruction. Understanding was expressed by the Patient only. Frequency/Duration: Date Range for Service Requested: Timeline to reassess: PRN Control Systems Developer Clinician/Clinical Fellow: No Supervisory Statement: N/A Speech Language Pathologist: Janie Leung M.A., [facility]
--- OUTSIDE RECORDS SUMMARY | 2025-01-30 16:41 | XMS_ITS | Clinical Summary ---
Author Organization [address] [place] [address] [place] [phone] Phone Care Team Providers Care Mba Internship Name Role Phone Brian Arguelles MD Primary [...] Problem Noted Date Diagnosed Date Atrial fibrillation (CMS/[facility] V24, CMS/[facility] V28) 1 07/04/2019 Overview (04/16/2024): Atrial fibrillation Palpitations 05/03/2020 Overview (04/16/2024): Palpitations Encounters Date Type Department Care Team Description 01/17/2025 5:55 PM EDT Ancillary Procedure [facility] Cardiology [facility] [address] [place] [address] 12/16/2024 3:15 AM EDT Ancillary Procedure [facility] Cardiology [facility] [address] [place] [address] 12/01/2024 4:25 PM EDT Ancillary Procedure [facility] Cardiology [facility] [address] [place] [address] from Last 3 Months Family History Medical [...] this topic Medical Devices Implanted Type Area Gearman Device Identifier Shelf Expiration Date Model / Serial / Lot Monitor Cardiac Insert Lux Dx Ii+ - [id number] - [id number] Implanted:Qty: 1 on 08/11/2024 at [facility] Cardiac Loop Recorder N/A: Chest [employer] MGMT 12/08/2025 M312 / [id number] / Bsci-Crm [id number] Implanted:08/11 (Quantity not on file) Cardiac Loop Recorder [employer] MGMT [id number] / [id number] / Procedures Procedure Name Priority Date/Time Associated Diagnosis Comments CARDIAC DEVICE CHECK- REMOTE- MURJ Routine 01/17/2025 5:51 PM EDT CARDIAC DEVICE CHECK- REMOTE- MURJ Routine 12/16/2024 3:11 AM EDT CARDIAC DEVICE CHECK- REMOTE- MURJ Routine 12/01/2024 4:23 PM EDT from Last 3 Months Results * Cardiac device check - Remote- MURJ (01/17/2025 5:51 PM EDT) Only the most recent of3 resultswithin the time period is included. Date Time Interrogation Session [id number] CV DEVICE CHECK Type Interrogation Session Remote Scheduled CV DEVICE CHECK Implantable Pulse Generator Gearman BSX CV DEVICE CHECK Implantable Pulse Generator Type ILR CV DEVICE CHECK Implantable Pulse Generator Model M312 CV DEVICE CHECK Implantable Pulse Generator Serial Number [id number] CV DEVICE CHECK Implantable Pulse Generator Implant Date 20240811 CV DEVICE CHECK Battery Status Beginning of Service CV DEVICE CHECK Atrial Tachy Statistic AT/AF [place] Percent 0.00 CV DEVICE CHECK Date of [...] Final Result from Last 3 Months Insurance [facility] Member Subscriber Plan / Payer (Ef fective 2022-Present) Name:BRITTA DAVIS Relation to Subscriber:Self Name:Britta Davis Payer ID:[id number] Group ID:[id number] Type:Not on file Address: [facility] [address] [id number] Care Teams Mba Internship Relationship Specialty Start Date End Date Brian Arguelles MD [address] [place] [address] Dr Nils [place] PCP - General 06/01/23
== END 2025-01-30 14:02 | disposition home or self-care (01) ==
LOC: HO.XRAY 14:01
PROVIDERS: Visit Provider Family Medicine
DX: R13.10 Dysphagia, unspecified (principal)
CPT/HCPCS: 74230; 92611

== ENCOUNTER → 2025-01-30 14:30 | Outpatient (BNV) | payer OTHER, SELFPAY | PROVIDERS: Visit Provider Radiology Diagnostic Radiology | DX: R13.10 Dysphagia, unspecified (principal) | CPT/HCPCS: 74230 ==

== ENCOUNTER → 2025-02-14 07:36 | Outpatient (BNV) | payer OTHER, SELFPAY | PROVIDERS: Visit Provider Radiology Body Imaging | DX: M51.360 Other intervertebral disc degeneration, lumbar region with discogenic back pain only (principal); M48.061 Spinal stenosis, lumbar region without neurogenic claudication; N28.9 Disorder of kidney and ureter, unspecified | CPT/HCPCS: 72148 ==

== ENCOUNTER 2025-02-14 07:57 | Outpatient (REF) | payer OTHER, SELFPAY ==
--- NOTE | ~2025-02-14 | MR_ITS ---
EXAMINATION: MR LUMBAR SPINE WITHOUT CONTRAST CLINICAL INFORMATION: M54.51 - Vertebrogenic low back pain COMPARISON: None available. TECHNIQUE: MRI of the lumbar spine was obtained using routine sequences without contrast. FINDINGS: Alignment/vertebrae: Exaggerated lumbar lordosis. Minimal grade 1 retrolisthesis of T12 on L1, L1 on L2 and L2 on L3. Grade 1 anterolisthesis of L5 on S1. No compression fractures. Degenerative endplate changes are more prominent at T10-T11 and L1-2. Intervertebral discs: Disc desiccation changes of all disks. Mild loss of height of multiple discs in the lower thoracic spine and T12-L1, L1-2 and L2-L3. Conus: Terminates at mid L1 level. Soft tissues: Mild nonspecific edema in the deep paraspinous soft tissues. Other findings: Incompletely evaluated T2 hyperintense left renal lesion measuring about 0.7 cm in diameter (12:22) could represent a cyst; renal ultrasound can be obtained for evaluation. Findings by level: T11-T12: Combination of bulging disc and hypertrophy of posterior elements results in mild bilateral neuroforaminal stenosis and mild spinal canal stenosis. T12-L1: Bulging disc and superimposed left central disc protrusion results in mild left neuroforaminal stenosis. No spinal canal or right neuroforaminal stenosis. L1-L2: Combination of bulging disc, hypertrophy of posterior elements and epidural fat results in mild bilateral neuroforaminal stenosis and mild spinal canal stenosis. L2-L3: Combination of bulging disc, hypertrophy of posterior elements and epidural fat results in mild bilateral neuroforaminal stenosis and mild spinal canal stenosis. L3-L4: Combination of bulging disc, hypertrophy of posterior elements and epidural fat results in mild/moderate bilateral neuroforaminal stenosis and moderate spinal canal stenosis. L4-L5: Combination of bulging disc, hypertrophy of posterior elements and epidural fat results in mild bilateral neuroforaminal stenosis and moderate spinal canal stenosis. L5-S1: Combination of anterolisthesis and prominent bilateral facet arthropathy results seen mild bilateral neuroforaminal stenosis and moderate spinal canal stenosis. MR/MR lumbar spine wo con IMPRESSION: 1. Moderate degree of multilevel degenerative changes. Moderate spinal canal stenosis at L3-L4, L4-L5 and L5-S1. Mild/moderate neuroforaminal stenosis bilaterally at L3-L4. 2. Incompletely evaluated incidental 0.7 cm left renal lesion. Renal ultrasound can be obtained for better evaluation. Electronically signed by: Shelley Denton MD 02/14/2025 09:42 AM EDT RP
--- OUTSIDE RECORDS SUMMARY | 2025-02-14 08:01 | XMS_ITS | Clinical Summary ---
Author Organization [address] [place] [address] [place] [phone] Phone Care Team Providers Care Tobacco Farmworker Name Role Phone Brian Arguelles MD Primary [...] Problem Noted Date Diagnosed Date Atrial fibrillation (CMS/[facility] V24, CMS/[facility] V28) 1 07/04/2019 Overview (04/16/2024): Atrial fibrillation Palpitations 05/03/2020 Overview (04/16/2024): Palpitations Encounters Date Type Department Care Team Description 01/17/2025 5:55 PM EDT Ancillary Procedure [facility] Cardiology [facility] [address] [place] [address] 12/16/2024 3:15 AM EDT Ancillary Procedure [facility] Cardiology [facility] [address] [place] [address] 12/01/2024 4:25 PM EDT Ancillary Procedure [facility] Cardiology [facility] [address] [place] [address] from Last 3 Months Family History Medical [...] this topic Medical Devices Implanted Type Area Cleaning Team Member Device Identifier Shelf Expiration Date Model / Serial / Lot Monitor Cardiac Insert Lux Dx Ii+ - [id number] - [id number] Implanted:Qty: 1 on 08/11/2024 at [facility] Cardiac Loop Recorder N/A: Chest [employer] MGMT 12/08/2025 M312 / [id number] / Bsci-Crm [id number] Implanted:08/11 (Quantity not on file) Cardiac Loop Recorder [employer] MGMT M312 / [id number] / Procedures Procedure Name Priority Date/Time Associated [...] period is included. Date Time Interrogation Session [id number] CV DEVICE CHECK Type Interrogation Session Remote Scheduled CV DEVICE CHECK Implantable Pulse Generator Cleaning Team Member BSX CV DEVICE CHECK Implantable Pulse Generator Type ILR CV DEVICE CHECK Implantable Pulse Generator Model M312 CV DEVICE CHECK Implantable Pulse Generator Serial Number [id number] CV DEVICE CHECK Implantable Pulse Generator Implant Date 20240811 CV DEVICE CHECK Battery Status Beginning of Service CV DEVICE CHECK Atrial Tachy Statistic AT/AF [place] Percent 0.00 CV DEVICE CHECK Date of [...] Final Result from Last 3 Months Insurance [facility] Member Subscriber Plan / Payer (Ef fective 2022-Present) Name:BRITTA DAVIS Relation to Subscriber:Self Name:Britta Davis Payer ID:[id number] Group ID:[id number] Type:Not on file Address: [facility] [address] [phone] Care Teams Tobacco Farmworker Relationship Specialty Start Date End Date Brian Arguelles MD [address] [place] [address] Dr Nils [place] PCP - General 06/01/23
== END 2025-02-14 07:58 | disposition home or self-care (01) ==
LOC: HO.MRI 07:57
PROVIDERS: Visit Provider Nurse Practitioner Family
DX: M54.51 Vertebrogenic low back pain (principal); M54.50 Low back pain, unspecified; G89.29 Other chronic pain; M51.369 Other intervertebral disc degeneration, lumbar region without mention of lumbar back pain or lower extremity pain; M47.817 Spondylosis without myelopathy or radiculopathy, lumbosacral region
CPT/HCPCS: 72148

== ENCOUNTER 2025-02-27 09:19 | Outpatient (AMB) | payer OTHER, SELFPAY ==
--- NOTE | 2025-02-27 09:25 | A.OFFVIS_ITS ---
Vital Signs 3 02/27/25 09:32 Height 5 ft 6 in Weight 262 lb BMI 42.3 BP 149/71 H Blood Pressure Location Rt brachial Position Sitting Pulse 63 Pulse Source Pulse Oximeter Pulse Oximetry (%) 99 Oxygen Delivery Method Room Air Intake Visit Reasons: MRI follow up Intake Note: Pain today 12/31 Facer Operator Required: No Accompanied by: Self / Same As Patient Allergies amoxicillin Allergy (Unknown, Verified 02/27/25 09:30) Hives azithromycin (Zithromax) Allergy (Unknown, Verified 02/27/25 09:30) Hives ciprofloxacin (Cipro) Allergy (Unknown, Verified 02/27/25 09:30) Hives codeine Allergy (Unknown, Verified 02/27/25 09:30) Hives Sulfa (Sulfonamide Antibiotics) Allergy (Unknown, Verified 02/27/25 09:30) Hives epinephrine Adverse Reaction (Severe, Verified 02/27/25 09:30) Anaphylaxis naproxen Adverse Reaction (Unknown, Verified 02/27/25 09:30) Gastrointestinal Upset Clindamycin HCl Allergy (Unknown, Uncoded 01/02/25 08:32) Hives Erythromycin Allergy (Unknown, Uncoded 01/02/25 08:32) Hives HPI Comments Details: The patient is a 69-year-old female presenting with chronic low back pain with radiculopathy and discuss recent lumbar spine MRI results. The pain has been persistent and radiates to the sides and back of the legs, exacerbated by walking (5-10 min) or standing for extended periods. The patient reports that the pain does not extend below the knee level. The lumbar spine MRI revealed moderate degree of multilevel degenerative changes, moderate spinal canal stenosis at L3-L4, L4-L5 and L5-S1 and mild/moderate neuroforaminal stenosis bilaterally at L3-L4. Additionally, there is the presence of epidural fat in the spinal canal, contributing to the narrowing of the space L1-L5 levels. There was also incidental finding of 0.7 cm left renal lesion. Renal ultrasound was ordered. Patient has undergone physical therapy for her back pain, which she reports as painful during certain maneuvers. Pain limits walking distance, causes pain when standing for activities like washing dishes. PRIOR: The patient is a 69-year-old female presenting with chronic lower back pain. The pain has been persistent for approximately two years, with no specific injury or falls reported during this period. The patient describes the pain as constant, with a severity level of 7 out of 10, escalating to 10 out of 10 in the evenings and reducing to 5 out of 10 in the mornings. The pain radiates to the hips and is described as sore, hurting, aching, heavy, dull, pulling, and tugging. It significantly affects daily activities, functioning, and sleep, and is exacerbated by prolonged standing and certain movements such as bending forward and twisting. The patient has a history of osteoarthritis, which was confirmed at [facility]. Previous interventions include physical therapy, which did not result in improvement, and the use of a TENS unit at home. The patient has also tried naproxen, which was effective for pain relief but caused gastrointestinal discomfort, leading to a switch to Celebrex. The patient has a history of atrial fibrillation, managed with metoprolol, and has a loop recorder implanted. She has not taken blood thinners for several years. The patient also reports a history of sleep apnea, obesity with a BMI of 42.3, and prediabetes with A1C=6.1, with efforts to lose weight through dietary changes. The patient has a history of smoking, having quit 13 years ago, and a history of alcohol use, which ceased 25 years ago. She denies current use of alcohol and smoking but reports occasional use of cannabis. The patient has cervical spondylosis and facet arthropathy, with imaging from 2016 showing consistent findings with current symptoms. - Onset: Approximately two years ago - Quality: Sore, hurting, aching, heavy, dull, pulling, tugging, tiring - Location: Lower back, radiating to both hips - Severity: 7/10 in general, 10/10 in evenings, 5/10 in mornings - Exacerbating factors: Prolonged standing, bending forward, twisting - Relieving factors: Reclining with a pillow - Interference: Affects daily activities, functioning, and sleep - Affect: Pain impacts daily activities and sleep, causing frustration and limitation in activities such as cooking and social gatherings. - Analgesia: Currently using Celebrex, previously used naproxen which caused gastrointestinal issues. - Adverse Effects: Gastrointestinal discomfort from naproxen, no adverse effects reported from Celebrex yet. - Activities of Daily Living: Pain limits ability to perform household tasks and participate in social activities. - Aberrant Drug Related Behaviors: No evidence of medication misuse or abuse reported. Oswestry Low Back Pain Disability Score=27 [facility] Medical History History of electrophysiologic study Routine physical examination Chronic pain Paroxysmal atrial flutter LIBERTY on CPAP Obesity Insomnia Hyperglycemia GERD (gastroesophageal reflux disease) Diverticular disease Chronic rhinitis COPD (chronic obstructive pulmonary disease) Depression Anxiety Surgical History History of gynecologic surgery History of hysteroscopy H/O section History of tonsillectomy History of endoscopic gastrointestinal surgery Social History Household Members: Children Housing: House Alcohol intake: current Alcohol intake frequency: 3 or more drinks per day Alcohol type: beer, wine and hard liquor Patient Tobacco Use Status: Former Tobacco user Cigarette Packs Per Day: 1.5 Cigarettes Per Day: 20 Years Smoked: 40 e-Cigarette/Vaping Use: Never Used Second Hand Smoke Exposure: Yes service: No Current occupational status: retired Current occupational exposures/hazards: No Sexual orientation: Unable to collect Gender identity: Unable to collect Cognitive needs: No Hearing needs: No Vision needs: Yes (wears glasses) Review of Systems Const Details: - Musculoskeletal: Reports chronic low back pain with radiculopathy, pain radiating to the side and back of the legs, not extending below the knee - Neurological: Denies numbness or tingling beyond the knee, weakness, bladder or bowel dysfunction or saddle anesthesia. All systems reviewed & are unremarkable except as noted in HPI and below Physical Exam Vital Signs: Last Vital Signs Pulse 63 02/27/25 09:32 BP 149/71 H 02/27/25 09:32 Pulse Ox 99 02/27/25 09:32 Oxygen Delivery Method Room Air 02/27/25 09:32 BMI result Body Mass Index 42.3 General: Appears afebrile. Morbidly obese. Alert and oriented. Mood and affect appropriate. Follows and participates in conversation appropriately. Respiratory effort is unlabored. No cough. Able to transition from sit to stand unassisted. Ambulates with bilaterally normal heel strike and toe off. General: Yes no CVA tenderness Back/Spine/Pelvis Other: Limited lumbar ROM due to pain. Demonstrates 5/5 strength of quadriceps bilaterally as well as flexion/dorsiflexion of bilateral feet against resistance. 2+ pedal pulses bilaterally. Axial rotations and extension reproduces mild to moderate pain, flexion forward and bending reproduces moderate pain. Straight leg rise with dorsiflexion negative bilaterally. +2 patellar and +1 achilles reflexes bilaterally. Facet loading test positive bilaterally. Dorene sign, Jeff?s and Stinchfield tests are negative bilaterally. No groin pain with I/E hip rotations. Valsalva maneuver negative. Back: no CVA tenderness Cervical Spine: cervical ROM normal, cervical muscular tenderness, pain with cervical ROM and No Cervical spine tenderness Thoracic/Lumbar Spine: thoracic and lumbar spine normal to inspection, No Thoracic/lumbar spine scar(s), Lasegue's sign negative, straight leg raise negative bilaterally, pain with thoraco-lumbar ROM, paraspinal muscle tenderness, thoraco-lumbar ROM limited, No thoracic spinal tenderness and lumbar spinal tenderness (L4-S1) Pelvis: buttock tenderness and no sciatic notch tenderness Sacroiliac joints: bilaterally nontender Extrem General: Yes capillary refill normal, Yes no clubbing, cyanosis or edema and Yes no calf tenderness Results Reviewed Results Reviewed: Cervical, thoracic, lumbar spine xrays 06/18/2015 MR LUMBAR SPINE WITHOUT CONTRAST 02/14/25 CLINICAL INFORMATION: M54.51 - Vertebrogenic low back pain COMPARISON: None available. TECHNIQUE: MRI of the lumbar spine was obtained using routine sequences without contrast. FINDINGS: Alignment/vertebrae: Exaggerated lumbar lordosis. Minimal grade 1 retrolisthesis of T12 on L1, L1 on L2 and L2 on L3. Grade 1 anterolisthesis of L5 on S1. No compression fractures. Degenerative endplate changes are more prominent at T10-T11 and L1-2. Intervertebral discs: Disc desiccation changes of all disks. Mild loss of height of multiple discs in the lower thoracic spine and T12-L1, L1-2 and L2-L3. Conus: Terminates at mid L1 level. Soft tissues: Mild nonspecific edema in the deep paraspinous soft tissues. Other findings: Incompletely evaluated T2 hyperintense left renal lesion measuring about 0.7 cm in diameter (12:22) could represent a cyst; renal ultrasound can be obtained for evaluation. Findings by level: T11-T12: Combination of bulging disc and hypertrophy of posterior elements results in mild bilateral neuroforaminal stenosis and mild spinal canal stenosis. T12-L1: Bulging disc and superimposed left central disc protrusion results in mild left neuroforaminal stenosis. No spinal canal or right neuroforaminal stenosis. L1-L2: Combination of bulging disc, hypertrophy of posterior elements and epidural fat results in mild bilateral neuroforaminal stenosis and mild spinal canal stenosis. L2-L3: Combination of bulging disc, hypertrophy of posterior elements and epidural fat results in mild bilateral neuroforaminal stenosis and mild spinal canal stenosis. L3-L4: Combination of bulging disc, hypertrophy of posterior elements and epidural fat results in mild/moderate bilateral neuroforaminal stenosis and moderate spinal canal stenosis. L4-L5: Combination of bulging disc, hypertrophy of posterior elements and epidural fat results in mild bilateral neuroforaminal stenosis and moderate spinal canal stenosis. L5-S1: Combination of anterolisthesis and prominent bilateral facet arthropathy results seen mild bilateral neuroforaminal stenosis and moderate spinal canal stenosis. IMPRESSION: 1. Moderate degree of multilevel degenerative changes. Moderate spinal canal stenosis at L3-L4, L4-L5 and L5-S1. Mild/moderate neuroforaminal stenosis bilaterally at L3-L4. 2. Incompletely evaluated incidental 0.7 cm left renal lesion. Renal ultrasound can be obtained for better evaluation. Assessment & Plan Assessment & Plan (1) Vertebrogenic low back pain: Code(s): M54.51 - Vertebrogenic low back pain Category: Medical (2) Chronic low back pain: Code(s): M54.50 - Low back pain, unspecified; G89.29 - Other chronic pain Category: Medical (3) Lumbar degenerative disc disease: Code(s): M51.369 - Other intervertebral disc degeneration, lumbar region without mention of lumbar back pain or lower extremity pain Category: Medical (4) Lumbosacral spondylosis: Code(s): M47.817 - Spondylosis without myelopathy or radiculopathy, lumbosacral region Category: Medical (5) Lumbar spinal stenosis: Code(s): M48.061 - Spinal stenosis, lumbar region without neurogenic claudication Category: Medical (6) Morbid obesity with BMI of 40.0-44.9, adult: Code(s): E66.01 - Morbid (severe) obesity due to excess calories; Z68.41 - Body mass index [BMI] 40.0-44.9, adult Category: Medical Plan Discussed lumbar spine MRI results and interventional treatment options for both her axial low back and radicular, spinal stenosis related pain. For radicular ongoing pain, tentatively schedule Bilateral L4-L5 TFESI with local and fluoroscopy to potentially improve mobility, functioning and alleviate leg symptoms. If the steroid injections do not provide significant relief, a referral to a Neurosurgeon will be considered for further evaluation of spinal stenosis. In the event that surgical intervention is not deemed necessary, the possibility of a spinal cord stimulator will be explored to manage both back and leg pain. For axial, facet-mediated pain, will consider Bilateral Diagnostic L3-L4 DR L5 MBB with local and fluoroscopy. Expectations, risks and benefits were reviewed.If she has significant relief from the diagnostic blocks for his axial low back pain, will consider either therapeutic injections or RFA depending on her preference. Given BMI>40, patient is not candidate for Sprint PNS trial at this time. All questions and concerns have been answered and patient agreed with the treatment plan. Patient will notify our office for proceeding with interventional treatments. Follow up as needed. Patient was informed and verbally consented to the use of an ambient scribe for clinic note documentation during this visit. Coding Level of Care Code Est Pt Level 4 (51007) Complex EM visit Add On G2211 Diagnoses Vertebrogenic low back pain M54.51 Chronic low back pain M54.50; G89.29 Lumbar degenerative disc disease M51.369 Lumbosacral spondylosis M47.817 Lumbar spinal stenosis M48.061 Morbid obesity with BMI of 40.0-44.9, adult E66.01; Z68.41
[2025-02-27 09:32] VITALS: BP 149/71; PULSE 63; O2SAT 99; BMI 42.3
--- OUTSIDE RECORDS SUMMARY | 2025-02-27 10:24 | XMS_ITS | Clinical Summary ---
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 [address] [place] [address] 12/16/2024 3:15 AM EDT Ancillary Procedure [facility] [address] [place] [address] 12/01/2024 4:25 PM EDT Ancillary Procedure [facility] [address] [place] [address] from Last 3 Months Family History Medical [...] Last Done Comments Breast Cancer Screening 1955 Colorectal Cancer Screening: Colonoscopy 1955 Zoster Vaccines (2 of 2) 04/23/2014 02/26/2014 Cholesterol Screening (Lipid Panel) 05/02/2022 Falls Risk Assessment 05/02/2022 Hepatitis C [...] this topic Medical Devices Implanted Type Area Parts Administrator Device Identifier Shelf Expiration Date Model / Serial / Lot Monitor Cardiac Insert Lux Dx Ii+ - [id number] - [id number] Implanted:Qty: 1 on 08/11/2024 at [facility] Cardiac Loop Recorder N/A: Chest [employer] MGMT 12/08/2025 M312 / [id number] / Bsci-[id number] Implanted:08/11 (Quantity not on file) Cardiac Loop Recorder [employer] M312 / [id number] / Procedures Procedure Name Priority Date/Time Associated [...] period is included. Date Time Interrogation Session [id number] CV DEVICE CHECK Type Interrogation Session Remote Scheduled CV DEVICE CHECK Implantable Pulse Generator Parts Administrator BSX CV DEVICE CHECK Implantable Pulse Generator Type ILR CV DEVICE CHECK Implantable Pulse Generator Model M312 CV DEVICE CHECK Implantable Pulse Generator Serial Number [id number] CV DEVICE CHECK Implantable Pulse Generator Implant Date 20240811 CV DEVICE CHECK Battery Status Beginning of Service CV DEVICE CHECK Atrial Tachy Statistic AT/AF Convent Percent 0.00 CV DEVICE CHECK Date of [...] rhythm reviewed * Heart Rate Histograms reviewed aJy Constantino MD CV IMPLANTABLE CARDIAC DEVICE PROCEDURES Final Result from Last 3 Months Insurance [facility] Member Subscriber Plan / Payer (Ef fective 2022-Present) Name:BRITTA DAVIS Relation to Subscriber:Self Name:Britta Davis Payer ID:[id number] Group ID:[id number] Type:Not on file Address: [facility] [address] [id number] Care Teams Fiber Glass Worker Relationship Specialty Start Date End Date Brian Arguelles MD [address] [place] [address] Dr Nils [place] PCP - General 06/01/23
== END 2025-02-27 10:02 | disposition home or self-care (01) ==
LOC: HO.PMC 09:20
PROVIDERS: PCP Family Medicine; Visit Provider Nurse Practitioner Family
DX: M54.51 Vertebrogenic low back pain (principal); M54.50 Low back pain, unspecified; G89.29 Other chronic pain; M51.369 Other intervertebral disc degeneration, lumbar region without mention of lumbar back pain or lower extremity pain; M47.817 Spondylosis without myelopathy or radiculopathy, lumbosacral region; M48.061 Spinal stenosis, lumbar region without neurogenic claudication; E66.01 Morbid (severe) obesity due to excess calories; Z68.41 Body mass index [BMI] 40.0-44.9, adult
CPT/HCPCS: 99214; G2211

== ENCOUNTER → 2025-02-27 09:19 | Outpatient (BNVA) | payer OTHER, SELFPAY | PROVIDERS: Visit Provider Nurse Practitioner Family | DX: Z71.2 Person consulting for explanation of examination or test findings (principal); M54.51 Vertebrogenic low back pain; M51.369 Other intervertebral disc degeneration, lumbar region without mention of lumbar back pain or lower extremity pain; M47.817 Spondylosis without myelopathy or radiculopathy, lumbosacral region; M48.061 Spinal stenosis, lumbar region without neurogenic claudication; E66.01 Morbid (severe) obesity due to excess calories; Z68.41 Body mass index [BMI] 40.0-44.9, adult | CPT/HCPCS: 99212 ==

== ENCOUNTER 2025-04-10 06:17 | Outpatient (REF) | payer OTHER, SELFPAY ==
--- NOTE | ~2025-04-10 | FL_ITS ---
EXAMINATION: FL GUIDANCE ONLY HISTORY: M48.061 - Spinal stenosis, lumbar region without neurogenic claudication COMPARISON: None available. TECHNIQUE: Fluoroscopy time: 42 seconds. Cumulative Dose: 13.00 mGy. DAP: 2500.70 mGycm2 Images: 6. FINDINGS: Fluoroscopic spot films of the lumbar spine demonstrate needles and contrast material in the regions of the right L4-5 and the left L3-4 facet joints. FL/FL guidance in treatment room IMPRESSION: Fluoroscopy during procedure. Please see procedure report for additional information. Electronically signed by: Mejia Kumar MD 04/11/2025 07:47 AM EST
== END 2025-04-10 06:18 | disposition home or self-care (01) ==
LOC: CF 06:17
PROVIDERS: Visit Provider Anesthesiology
DX: M54.16 Radiculopathy, lumbar region (principal)
CPT/HCPCS: 64483; J2003; J3301; Q9967

== ENCOUNTER 2025-04-10 07:32 | Outpatient (AMB) | payer OTHER, SELFPAY ==
[2025-04-10 07:34] VITALS: BP 140/74; PULSE 57; RESP 16; O2SAT 93; BMI 42.3
--- NOTE | 2025-04-10 07:34 | A.OFFVIS_ITS ---
Vital Signs 04/10/25 07:34 04/10/25 08:28 Height 5 ft 6 in Weight 262 lb BMI 42.3 BP 140/74 H 122/69 Blood Pressure Location Lt brachial Lt brachial Position Sitting Sitting Respiration 16 16 Pulse 57 68 Pulse Source Pulse Oximeter Pulse Oximeter Pulse Oximetry (%) 93 97 Oxygen Delivery Method Room Air Room Air Intake Visit Reasons: Bilateral L4-L5 TFESI Allergies amoxicillin Allergy (Unknown, Verified 02/27/25 09:30) Hives azithromycin (Zithromax) Allergy (Unknown, Verified 02/27/25 09:30) Hives ciprofloxacin (Cipro) Allergy (Unknown, Verified 02/27/25 09:30) Hives codeine Allergy (Unknown, Verified 02/27/25 09:30) Hives Sulfa (Sulfonamide Antibiotics) Allergy (Unknown, Verified 02/27/25 09:30) Hives epinephrine Adverse Reaction (Severe, Verified 02/27/25 09:30) Anaphylaxis naproxen Adverse Reaction (Unknown, Verified 02/27/25 09:30) Gastrointestinal Upset Clindamycin HCl Allergy (Unknown, Uncoded 01/02/25 08:32) Hives Erythromycin Allergy (Unknown, Uncoded 01/02/25 08:32) Hives [facility] Medical History History of electrophysiologic study Routine physical examination Chronic pain Paroxysmal atrial flutter LIBERTY on CPAP Obesity Insomnia Hyperglycemia GERD (gastroesophageal reflux disease) Diverticular disease Chronic rhinitis COPD (chronic obstructive pulmonary disease) Depression Anxiety Surgical History History of gynecologic surgery History of hysteroscopy H/O section History of tonsillectomy History of endoscopic gastrointestinal surgery Social History Household Members: Children Housing: House Alcohol intake: current Alcohol intake frequency: 3 or more drinks per day Alcohol type: beer, wine and hard liquor Patient Tobacco Use Status: Former Tobacco user Cigarette Packs Per Day: 1.5 Cigarettes Per Day: 20 Years Smoked: 40 e-Cigarette/Vaping Use: Never Used Second Hand Smoke Exposure: Yes service: No Current occupational status: retired Current occupational exposures/hazards: No Sexual orientation: Unable to collect Gender identity: Unable to collect Cognitive needs: No Hearing needs: No Vision needs: Yes (wears glasses) Physical Exam Vital Signs: Last Vital Signs Pulse 57 04/10/25 07:34 Resp 16 04/10/25 07:34 BP 140/74 H 04/10/25 07:34 Pulse Ox 93 04/10/25 07:34 Oxygen Delivery Method Room Air 04/10/25 07:34 BMI result Body Mass Index 42.3 Assessment & Plan Assessment & Plan (1) Radiculopathy, lumbar region: Code(s): M54.16 - Radiculopathy, lumbar region Category: Medical Plan bilateral transforaminal epidural steroid injection L4-5 ? ?Informed consent was explained to the patient. the risks were explained as risks of bleeding infection peripheral nerve damage spinal cord damage and headache.All questions were explained and? answered.? The patient was taken inside the operating room where she was positioned prone on the operating table. Time-out was performed delineating correct site, side, the nature of the procedure, patient's allergy, . All operating room staff was participating in OR time-out procedure. ? ? The lower back was prepped with ChloraPrep and draped with sterile utility towels.? C-arm was brought over the operating field and sq picture of L4 vertebra was demonstrated on the screen. tilting C-arm ipsilateral to each side of the patient left and right most prominent picture of the superior articular process of L5 vertebra was demonstrated on the screen 1st on the right and then on the left. The target was chosen as the lateral border of the superior articular process each time. The projection of the target to the screen was injected with small amount of lidocaine 1%, after that 22 gauge 5 in needle was inserted through the skin wheal and advanced to were the target in tunnel vision fashion. When tip of the needle gently contacted the bone it was deviated slightly lateral advanced 3 mm and deviated slightly medial. On AP view the tip of the needle positioned in the silhouette of the spinal column But not more medial than the midline of the pedicle. Injection of the contrast was performed on each side and it demonstrated epidural spread of the contrast. After that injection of the 3 mL of lidocaine 1% preservative-free mixed with Kenalog 20 mg was performed in each side. Upon completion of the injection the needle was withdrawn and sterile Band-Aids were applied. Patient felt appropriate weakness in bilateral legs after injection. She was taken outside of the operating room to recovery room where she recovered uneventfully. Orders: Orders FL guidance in treatment room Today M48.061 - Spinal stenosis, lumbar region without neurogenic claudication Coding Level of Care Code Procedure Only Diagnoses Radiculopathy, lumbar region M54.16
[2025-04-10 08:28] VITALS: BP 122/69; PULSE 68; RESP 16; O2SAT 97
== END 2025-04-10 09:16 | disposition home or self-care (01) ==
LOC: HO.PMCPRC 07:32
PROVIDERS: PCP Family Medicine; Visit Provider Anesthesiology
DX: M54.16 Radiculopathy, lumbar region (principal)
CPT/HCPCS: 64483

== ENCOUNTER 2025-04-24 09:10 | Outpatient (AMB) | payer OTHER, SELFPAY ==
--- NOTE | 2025-04-24 09:21 | MHC.PC.OV ---
Vital Signs 04/24/25 09:28 Height 5 ft 6 in Weight 260 lb 2 oz BMI 42.0 BP 102/62 Blood Pressure Location Rt brachial Position Sitting Respiration 16 Pulse 58 Pulse Source Pulse Oximeter Temp 97.6 F Temp Source Temporal Artery Scan Pulse Oximetry (%) 97 Oxygen Delivery Method Room Air Intake Visit Reasons: f/u chronic conditions Intake Note: Britta presents in the office today for her diabetes and other chronic conditions. 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 Post menopausal: Yes Patient : No Allergies amoxicillin Allergy (Unknown, Verified 04/24/25 09:27) Hives azithromycin (Zithromax) Allergy (Unknown, Verified 04/24/25 09:27) Hives ciprofloxacin (Cipro) Allergy (Unknown, Verified 04/24/25 09:27) Hives codeine Allergy (Unknown, Verified 04/24/25 09:27) Hives Sulfa (Sulfonamide Antibiotics) Allergy (Unknown, Verified 04/24/25 09:27) Hives epinephrine Adverse Reaction (Severe, Verified 04/24/25 09:27) Anaphylaxis naproxen Adverse Reaction (Unknown, Verified 04/24/25 09:27) Gastrointestinal Upset Clindamycin HCl Allergy (Unknown, Uncoded 04/24/25 09:27) Hives Erythromycin Allergy (Unknown, Uncoded 04/24/25 09:27) Hives Medication List - Last Reconciled 04/24/25 by Brian Arguelles MD cetirizine (Zyrtec) 10 mg PO DAILY PRN duloxetine 30 mg PO BID 90 days famotidine 20 mg PO DAILY 90 days levalbuterol tartrate 45 mcg/actuation 2 puffs inhalation Q4H PRN lidocaine 5% 1 patch topical DAILY 30 days magnesium chloride ER 64 mg PO DAILY metoprolol tartrate 25 mg PO BID tiotropium-olodaterol 2.5-2.5 mcg/actuation (Stiolto Respimat) 2 puffs inhalation DAILY Tobacco use date assessed: 04/24/25 Dental Screening Dental Screen Date: 04/24/25 Did you have a dental visit in the last 12 months?: Yes Did you have a dental problem in the last 6 months where you did not have access to dental care?: No Was dental information given to patient?: Patient has dentist HPI f/u chronic conditions HPI Details 69 y/o female presents to f/u chronic conditions. A1c today 04/24/25 5.9%. Hx of chronic pain. Has been following up with pain management. Pt notes she had not been able to tolerate injection therapy as this morning she had difficulty walking/bending over. Lumbar spine MRI 02/14/25 showed moderate degree of multilevel degenerative changes. Also showed incidental 0.7 cm L renal lesion which she notes she has been worried about. She notes she has an ultrasound scheduled early May. [facility] Medical History History of electrophysiologic study Routine physical examination Chronic pain Paroxysmal atrial flutter [place] on CPAP Obesity Insomnia Hyperglycemia GERD (gastroesophageal reflux disease) Diverticular disease Chronic rhinitis COPD (chronic obstructive pulmonary disease) Depression Anxiety Surgical History History of gynecologic surgery History of hysteroscopy H/O section History of tonsillectomy History of endoscopic gastrointestinal surgery Social History (Updated 04/24/25 @ 09:28 by Nishi Hummel [facility]) Household Members: Children Housing: House Alcohol intake: current Alcohol intake frequency: 3 or more drinks per day Alcohol type: beer, wine and hard liquor Patient Tobacco Use Status: Former Tobacco user Cigarette Packs Per Day: 1.5 Cigarettes Per Day: 20 Years Smoked: 40 e-Cigarette/Vaping Use: Never Used Second Hand Smoke Exposure: Yes service: No Current occupational status: retired Current occupational exposures/hazards: No Sexual orientation: Unable to collect Gender identity: Unable to collect Cognitive needs: No Hearing needs: No Vision needs: Yes (wears glasses) Questionnaire Thrive Questionnaire Date Thrive assessed: 07/31/24 I am a: Patient What is your living situation today?: I have a steady place to live Within the past 12 months, did the food you bought not last and you didn't have the money to get more?: Often true Within the past 12 months, did you worry whether your food would run out before you got money to buy more?: Often true Do you have trouble paying for medicines?: No Do you have trouble getting transportation to medical appointments?: No Do you have trouble paying your heating and electricity bill?: No Do you have trouble taking care of your child, family member or friend?: No Do you have trouble with day-to-day activities such as bathing, preparing meals, shopping, managing finances, etc.?: No Are you currently unemployed and looking for a job?: No Are you interested in more education?: No Please select the resources that you would like help with: None Currently or been in a relationship where the following occur: No concerns reported THRIVE Score: 2 RIC-7 AMB Questionnaire RIC-7 Date RIC - 7 assessed: 07/31/24 Source: Developed by Drs. Mejia Bess, Jen Erickson, Patrick Morejon and colleagues, with an educational tete from [employer]. Review of Systems Const Denies chills, Denies fatigue, Denies fever(s), Denies headache(s) and Denies weakness ENT Denies dizziness and Denies headache(s) Card Denies dyspnea Resp Denies cough, Denies dyspnea, Denies wheezing and Denies other (shortness of breath) Musc Denies numbness and Denies tingling Neuro Denies dizziness, Denies headache(s), Denies numbness, Denies tingling and Denies weakness Psych Denies anxiety and Denies depression Endo Denies fatigue Aller/Immun Denies wheezing Physical exam (Primary Care) Vital Signs: Last Vital Signs Temp 97.6 F 04/24/25 09:28 Pulse 58 04/24/25 09:28 Resp 16 04/24/25 09:28 BP 102/62 04/24/25 09:28 Pulse Ox 97 04/24/25 09:28 Oxygen Delivery Method Room Air 04/24/25 09:28 BMI result Body Mass Index 42.0 Tobacco/Smoking Status: Tobacco use Status Tobacco use date assessed 04/24/25 04/24/25 09:33 Patient Tobacco Use Status Former Tobacco user 04/24/25 09:28 e-Cigarette/Vaping Use Never Used 04/24/25 09:28 Thrive Assessment: Date of Thrive Assessment Date Thrive assessed 07/31/24 04/24/25 09:22 Currently or been in a relationship where the following occur: No concerns reported Const General: well developed; No acute distress Nutritional Appearance: well nourished Orientation/consciousness: patient oriented x3 HENMT Head: Yes normocephalic and Yes atraumatic Eyes General: appearance normal, both eyes and all related structures Pupils: Equal, round and reactive pupils present EOM: EOMs intact bilaterally Resp Effort & Inspection: normal respiratory effort Neuro General: patient oriented x3 and gait normal Cranial nerves: Yes Equal, round and reactive pupils present Psych Affect: normal affect Results AMB Hemoglobin A1c AMB Hemoglobin A1c 5.9 % Last Edit by Nishi Hummel CMA on 04/24/25 09:37 Results Reviewed Results Reviewed: Laboratory Last Values Hgb A1c (Clinic) 5.9 % (4.0-6.0) 04/24/25 09:36 Coding Level of Care Code Est Pt Level 4 (96511) Diagnoses Chronic low back pain M54.50; G89.29 Pre-diabetes R73.03 Renal lesion N28.9 Assessment & Plan Assessment & Plan (1) Chronic low back pain: Code(s): M54.50 - Low back pain, unspecified; G89.29 - Other chronic pain Category: Medical Plan: So ongoing chronic low back pain and now about 2 weeks s/p injection therapy. Patient notes no improvement from this She can resume naproxen now Has follow-up with pain management in April (2) Pre-diabetes: Code(s): R73.03 - Prediabetes Category: Medical Plan: A1c has improved to 5.9% Continue diet low in sugars and starches Will continue monitor (3) Renal lesion: Code(s): N28.9 - Disorder of kidney and ureter, unspecified Category: Medical Plan: Imaging during injection procedure showed a 0.7 mm renal lesion She has an ultrasound scheduled for early May to evaluate. Discussed with patient that this is likely a benign cyst We will follow-up on this in mid May at her next appointment Orders: Orders AMB Hemoglobin A1c Today R73.03 - Prediabetes
[2025-04-24 09:28] VITALS: BP 102/62; PULSE 58; RESP 16; TEMP 36.4; O2SAT 97; BMI 42.0
--- OUTSIDE RECORDS SUMMARY | 2025-04-24 09:40 | XMS_ITS | Data Portability ---
Author Organization [place] [facility] Address [address] [place] [phone] Care Team Providers Care Facility Maintenance Manager Name Role Phone CHARLA MARSHALL Primary Care Provider [phone] Assessment Encounter Date Assessment Date Assessment LastModified [...] 4 mg disintegrat ing tablet 2021 022 [id number], [address], [place], [id number], 20:36:36 Zofran ODT 4 mg disintegrat ing tablet 2021 022 [email or web address] Not available 21:58:26 Patient TargetsNo targets recorded. Patient Instructions Encounter Date Encounter Id Patient Instructions Last Modified By Organization Details Last Modified Time 07/28/2021 [id number] Acute Nausea and Vomiting/Diarrhea BASIC INFORMATION Acute [...] caused by toxins released from food that g oes bad as well as some types of bacteria [...] disease, do not use Tylenol. Ask your DEATH CLAIM EXAMINER how to address fever if you are concerned about Tylenol use. 3) Anti-diarrheal medicines: These are available [id number], but in some cases are not recommended and can even worsen some cases of intestinal problems. Ask your DEATH CLAIM EXAMINER if you should use them. In children [...] with one of the PCP suggestions from [facility]. SEEK CARE IMMEDIATELY IF: 1) You [...] in your condition between 8am-10pm, [facility] at [phone] to help navigate your care. [email or web address] Not available 07/28/2021 20:36:40 Reason for Referral [...] Recorded Respiratory rate Heart rate Oxygen saturation Body temperature Respiratory rate Systolic And Diastolic Provider Name and Address Organization Details Last Updated DateTime 2 2 /min 87 /min 90 % 98.8 [degF] 20 /min 106/62 mm[Hg] Not Available [facility] 2 20:44:25 Social History None recorded. Functional Status None recorded. Mental Status None recorded. Family History Nothing Reported. Medical History No medical history recorded. Gynecological HistoryNo gynecological history recorded. Obstetrics History GPAL:G 0 P 0 0 0 0 Past Encounters Encounter ID Performer Location Encounter Start Date Encounter Closed Date Diagnosis/Indication Diagnosis SNOMED-CT Code Diagnosis ICD10 Code Diagnosis IMO Codes Diagnosis Note [id number] EARL Das [facility] [address] [facility] PATI BECKER [id number] 07/28/2021 20:34:55 07/30/2021 10:48:10 Nausea 464088876 R11.0 Proper Personal Protective Equipment (PPE), including gloves, eye protection and masks were donned and doffed miley morataya and all equipment cleaned using approved technique with germicidal disposable wipes prior to and after care of this patient according to [facility] infection prevention protocols. Overview/H istory: 66 yo [...] inability to maintain po intake. Acute vomiting [id number] R11.10 Health Concerns Section Related Observation LastModified by Organization Detai ls LastModified Time None Recorded Concern Status LastModified by Organization Details LastModified Time None Recorded Advance Directives Directive None Recorded Payers Insurance Date Sequence Insurance Name Policy Number Policy Keyes Covered Member ID Keyes Member ID Guarantor Name 07/28/2021 2 [facility] TO 2022 - DUAL ELIGIBLE (MEDICARE REPLACEMENT/ADV ANTAGE - HMO) Britta Zucco [id number] Britta Zucco 07/28/2021 2 [place] [facility] Britta Zucco [id number] Britta Zucco 07/28/2021 2 [place] [facility] Britta Zucco [id number] Britta Zucco 07/28/2021 1 *SELF PAY* Britta Zucco [id number] Britta Zucco 07/28/2021 1 [place] [employer] Britta Zucco [id number] Britta Zucco 07/28/2021 1 [facility] PRIOR TO 2022 - DUAL ELIGIBLE (MEDICARE REPLACEMENT/ADV ANTAGE - HMO) Britta Zucco [id number] Britta Zucco 07/28/2021 3 [facility] [employer] - DOS PRIOR TO 2022 - DUAL ELIGIBLE (MEDICARE REPLACEMENT/ADV ANTAGE - HMO) Britta Zucco [id number] Britta Zucco 07/28/2021 2 [place] [employer] Britta Zucco [id number] Britta Zucco 07/28/2021 3 [place] [employer] Britta Zucco [id number] Britta Zucco 07/28/2021 3 [place] [employer] Britta Zucco [id number] Britta Zucco 07/28/2021 2 [place] Britta Zucco [id number] Britta Zucco 07/28/2021 1 [facility] - DOS PRIOR TO 2022 - DUAL ELIGIBLE (MEDICARE REPLACEMENT/ADV ANTAGE - HMO) Britta Zucco [id number] Britta Zucco 07/28/2021 1 [facility] - DOS PRIOR TO 2022 - DUAL ELIGIBLE (MEDICARE REPLACEMENT/ADV ANTAGE - HMO) Britta Zucco [id number] Britta Zucco 08/06/2021 1 [facility] [employer] - DOS PRIOR TO 2022 - DUAL ELIGIBLE (MEDICARE REPLACEMENT/ADV ANTAGE - HMO) Britta Zucco [id number] Britta Zucco 07/28/2021 2 [place] [employer] Britta Zucco [id number] Britta Zucco 07/28/2021 3 [place] [facility] Britta Zucco [id number] Britta Zucco 07/28/2021 1 [place] [employer] Britta Zucco [id number] Britta Zucco 07/28/2021 2 [place] [facility] Britta Zucco [id number] Britta Zucco 07/28/2021 1 [place] [facility] Britta Zucco [id number] Britta Zucco 07/28/2021 2 [place] [facility] Britta Zucco [id number] Britta Zucco 07/28/2021 1 [facility] - DOS PRIOR TO 2022 - DUAL ELIGIBLE (MEDICARE REPLACEMENT/ADV ANTAGE - HMO) Britta Zucco [id number] Britta Zucco Notes Date Note Type Note Provider Name and Address Organization Details Recorded Time 07/28/2021 text/html General HPI Template - DHReported by Patient -66 yo female new to provider and [...] my afib EARL Das [address], [place], [address], [place] [facility] 07/28/2021 21:07:16 OBGyn Episode No OBEpisode recorded.
--- OUTSIDE RECORDS SUMMARY | 2025-04-24 09:40 | XMS_ITS | Clinical Summary ---
Author Organization [address] [place] [address] [place] [phone] Phone Care Team Providers Care Wine Specialist Name Role Phone Brian Arguelles MD Primary Care Provider [phone] Allergies Active Allergy Reactions Criticality Noted Date [...] (Slow-Mag) 71.5 mg tablet,delayed release (DR/EC) Active DULoxetine (CYMBALTA) [address] capsule Take 1 capsule (30 mg total) by mouth 2 (two) times a day. Do not crush or chew. Active tiotropium-olo dateroL (Stiolto Respimat) 2.5-2.5 mcg/actuation mist inhaler Inhale 2 puffs by mouth 1 (one) time each day. Active metoprolol tartrate (LOPRESSOR) 25 mg tablet TAKE 1 TABLET BY MOUTH TWICE DAILY 180 tablet 3 5 Active metoprolol tartrate (LOPRESSOR) 25 mg tablet TAKE 1 TABLET BY MOUTH TWICE DAILY 180 tablet 3 5 04/12/20 25 Discontinued Active Problems Problem Noted Date Diagnosed Date Atrial fibrillation (CMS/[facility] V24, CMS/[facility] V28) 1 07/04/2019 Overview (04/16/2024): Atrial fibrillation Palpitations 05/03/2020 Overview (04/16/2024): Palpitations Encounters Date Type Department Care Team Description 03/31/2025 3:10 AM EST Ancillary Procedure [facility] [address] [place] [address] 02/27/2025 5:25 PM EDT Ancillary Procedure [facility] [address] [place] [address] from Last 3 Months Family History Medical History Relation Name Comments Diabetes Father Hypertension Father Hyperlipidemia Mother Hypertension Mother Relation Name Status Comments Father Mother Social History Tobacco Use Types Packs/Day Years Used Date Smoking Tobacco: Former Cigarettes 0 Q uit: 05/01/2011 Smokeless Tobacco: Never Alcohol [...] 08/11/2024 8:14 AM EDT Plan of Treatment Upcoming Encounters Date Type Department Care Team (Late st Contact Info) Description 06/19/2025 10:40 AM EST Office Visit [facility] [address] [facility] [address] [place] [phone] Jay Constantino MD [address] [place] [address] Dr Rodrigues [address] [place] [phone] Health Maintenance Due Date Last Done Comments Breast Cancer Screening 1955 Colorectal Cancer Screening: Colonoscopy 1955 Zoster Vaccines (2 of 2) 04/23/2014 02/26/2014 Cholesterol Screening (Lipid Panel) 05/02/2022 Falls Risk Assessment 05/02/2022 Hepatitis C Screening 05/02/2022 Osteoporosis Screening (Bone Density Screening) 05/02/2022 Social Influencers of Health Screening 05/02/2022 Depression Screening 05/24/2024 COVID-19 Vaccine (2024- season) 2025 02/20/2025, 08/17/2024, 02/23/2024, Additional history exists DTaP,Tdap,and Td Vaccines (4 - Td or Tdap) 08/17/2034 08/17/2024, 01/22/2017, 07/10/2008 MMR Vaccines Aged Out 02/10/2010 No longer eligi ble based on patient's age to complete this topic Pneumococcal Vaccine: 50+ Years Completed 09/23/2022, 08/17/2014, 06/30/2011 RSV Immunization Adult Patients Completed 02/02/2023 Influenza Vaccine Completed 01/11/2025, , 02/04/2022, Additional [...] this topic Medical Devices Implanted Type Area Line Palletizer Device Identifier Shelf Expiration Date Model / Serial / Lot Monitor Cardiac Insert Lux Dx Ii+ - [id number] - [id number] Implanted:Qty: 1 on 08/11/2024 at [facility] Cardiac Loop Recorder N/A: Chest [employer] MGMT 12/08/2025 [id number] / [id number] / Bsci-Crm [id number] Implanted:08/11 (Quantity not on file) Cardiac Loop Recorder [employer] [facility] M312 / [id number] / Procedures Procedure Name Priority Date/Time Associated Diagnosis Comments CARDIAC DEVICE CHECK- REMOTE- MURJ Routine 03/31/2025 3:09 AM EST CARDIAC DEVICE CHECK- REMOTE- MURJ Routine 02/27/2025 5:24 PM EDT from Last 3 Months Results * Cardiac device check - Remote- MURJ (03/31/2025 3:09 AM EST) Only the most recent of2 resultswithin the time period is included. Date Time Interrogation Session [id number] CV DEVICE CHECK Type Interrogation Session Remote Scheduled CV DEVICE CHECK Implantable Pulse Generator Line Palletizer BSX CV DEVICE CHECK Implantable Pulse Generator Type ILR CV DEVICE CHECK Implantable Pulse Generator Model M312 CV DEVICE CHECK Implantable Pulse Generator Serial Number [id number] CV DEVICE CHECK Implantable Pulse Generator Implant Date 20240811 CV DEVICE CHECK Battery Status Beginning of Service CV DEVICE CHECK Atrial Tachy Statistic AT/AF [place] Percent 0.00 CV DEVICE CHECK Date of Service 2025-04-04 CV DEVICE CHECK Anatomical Region Laterality Modality Device Interroga tion 03/26/2025 1:56 AM EST Impressions 03/30/2025 11:34 AM EST Normal Remote: No Events * This is a normal remote diagnostic device check * Alerts or events: None * Battery data was reviewed * Battery status: TESSA, * Presenting rhythm reviewed * Heart Rate Histograms reviewed Narrative Procedure Note Jay Constantino MD - 03/31/2025 IMPRESSION: Normal Remote: No Events * This is a normal remote diagnostic device check * Alerts or events: None * Battery data was reviewed * Battery status: TESSA, * Presenting rhythm reviewed * Heart Rate Histograms reviewed Jay Constantino MD CV IMPLANTABLE CARDIAC DEVICE PROCEDURES Final Result from Last 3 Months Insurance [facility] Member Subscriber Plan / Payer (Ef fective 2022-Present) Name:BRITTA DAVIS Relation to Subscriber:Self Name:Britta Davis Payer ID:[id number] Group ID:[id number] Type:Not on file Address: [place] [address] [address] [address] Care Teams Wine Specialist Relationship Specialty Start Date End Date Brian Arguelles MD [address] [place] [address] Dr Nils [place] PCP - General 06/01/23
== END 2025-04-24 10:38 | disposition home or self-care (01) ==
LOC: HO.HMCFM 09:11
PROVIDERS: PCP Family Medicine; Visit Provider Family Medicine
DX: M54.50 Low back pain, unspecified (principal); G89.29 Other chronic pain; R73.03 Prediabetes; N28.9 Disorder of kidney and ureter, unspecified

== ENCOUNTER → 2025-04-24 09:10 | Outpatient (BNVA) | payer OTHER, SELFPAY | PROVIDERS: PCP Family Medicine; Visit Provider Family Medicine | DX: R73.03 Prediabetes (principal); M54.50 Low back pain, unspecified; G89.29 Other chronic pain; N28.9 Disorder of kidney and ureter, unspecified | CPT/HCPCS: 83036; 99212 ==